=== PATIENT | female | born 1995 | race Caucasian/White ===

== ENCOUNTER 2022-03-11 16:44 | Outpatient (CLI) | payer SELFPAY | END 2022-03-11 16:45 | disposition home or self-care (01) | LOC: AMB 03-13 10:38 | PROVIDERS: Visit Provider Family Medicine | DX: R42 Dizziness and giddiness (principal) | CPT/HCPCS: A0425; A0427 ==

== ENCOUNTER 2022-03-11 17:19 | Emergency (ER) | payer SELFPAY ==
[2022-03-11] VITALS (7 sets, daily range): BP systolic 124–131; BP diastolic 66–96; PULSE 79–99; RESP 16–22; TEMP 35.8–36.7; O2SAT 95–100; BMI 48.9
--- NOTE | 2022-03-11 | CRLHL7_ITS ---
For Patients: As a result of the Century Cures Act, medical imaging exams and procedure reports are released immediately into your electronic medical record. You may view this report before your referring provider. If you have questions, please contact your health care provider. DATE: 03/11/2022. CLINICAL HISTORY: Dizziness. TECHNIQUE: Standard helical CT image acquisition through the head and neck was performed after intravenous contrast bolus enhancement. Multiplanar reconstructed images were performed and interpreted. COMPARISON: None available. FINDINGS: The origins of the great vessels from the aortic arch are patent. The origins of the right and left vertebral arteries are patent. The common carotid arteries are patent. No significant luminal stenoses of the proximal internal carotid arteries by NASCET criteria. The more distal cervical segments of the internal carotid arteries are patent. The right vertebral artery is patent. Although suboptimally assessed, there is apparent diminutive caliber and poor opacification of the proximal and mid V2 segment of the left vertebral artery in which an underlying dissection is not excluded. No intracranial proximal large vessel occlusion or flow-limiting luminal stenosis. No evidence of cerebral aneurysm or findings to suggest an arteriovenous shunting lesion. IMPRESSION: 1. Apparent diminutive caliber and poor opacification of the proximal and mid V2 cervical segment of the left vertebral artery. While this may be artifactual, an underlying dissection is not excluded. 2. No intracranial proximal large vessel occlusion or flow-limiting luminal stenosis. Please note that all CT scans at this facility use dose modulation, iterative reconstruction, and/or weight-based dosing when appropriate to reduce radiation dose to as low as reasonably achievable. Dictated by Raghav Bond MD @ 03/12/2022 3:34:47 PM (Electronically Signed)
--- NOTE | 2022-03-11 18:27 | CRLHL7_ITS ---
For Patients: As a result of the Century Cures Act, medical imaging exams and procedure reports are released immediately into your electronic medical record. You may view this report before your referring provider. If you have questions, please contact your health care provider. INDICATION: Dizziness. TECHNIQUE: Noncontrast CT images acquired through the brain. COMPARISON: None. FINDINGS: The ventricles and sulci are within normal limits for patient age. No mass effect or midline shift. The perez white differentiation is maintained. No acute intracranial hemorrhage or pathologic extra-axial fluid collection. Partially empty sella. Dysconjugate gaze. The calvarium is intact. The visualized paranasal sinuses and mastoid air cells are clear. IMPRESSION: 1. No acute intracranial hemorrhage or mass effect. 2. Partially empty sella may represent an anatomic variant, though raises the possibility of idiopathic intracranial hypertension in an appropriate clinical setting. Please note that all CT scans at this facility use dose modulation, iterative reconstruction, and/or weight-based dosing when appropriate to reduce radiation dose to as low as reasonably achievable. Dictated by Alli Salazar MD @ 03/11/2022 7:27:11 PM (Electronically Signed)
[2022-03-11] MEDS: diazePAM 5 MG/ML inj IV (18:57)
--- NOTE | 2022-03-11 18:58 | ED.DIZZY ---
HPI - Dizziness General Chief Complaint: Dizziness/Vertigo <Sandro Dior MD - Last Filed: 03/11/22 22:21> Stated Complaint: Dizzy <Sandro Dior MD - Last Filed: 03/11/22 22:21> Time Seen by Provider: 03/11/22 17:38 <Sandro Dior MD - Last Filed: 03/11/22 22:21> History of Present Illness HPI Narrative: 27-year-old young woman presenting to the emergency department via EMS accompanied by her significant other with complaint of dizziness and vomiting. She is not having a headache. No visual disturbance. Not really describing photophobia. About 2-1/2 hours ago was holding her child who is in foster care at this time, on added stress, and felt her left hand go little numb and then her arm felt as well. She passed it off as possibly just related to holding her son. This spontaneously resolved after unspecified amount of time, some minutes. Not actually weak. Subsequently maybe an hour later about an hour and a half prior to presentation here was then walking [place] and was suddenly hit with waves of dizziness and lots of vomiting. She does not recall moving in any particular way. She was noted to be walking in a tilted manner. Was feeling fine prior to these events today. Further recollection during the exam she has thinks that maybe when moving more to the left, meaning turning her head to the left, has more symptoms. She also acknowledges that her eyes seem to want to close when turning to the left as well. Significant other recollects that her eyes seemed to be jumpy. She says she is not dizzy at rest at this time. Just does not feel well and is lightheaded. Never had any sense of racing heart or irregular beats. No family history of aneurysms or unusual neurological disorders or strokes that she knows of. <Sandro Dior MD - Last Filed: 03/11/22 22:21> Related Data Allergies/Adverse Reactions: Allergies Allergy/AdvReac Type Severity Reaction Status Date / Time No Known Drug Allergies Allergy Verified 03/11/22 17:36 <Sandro Dior MD - Last Filed: 03/11/22 22:21> Review of Systems Status of ROS: Reports: 10 or more systems reviewed and unremarkable except as noted in History and below <Sandro Dior MD - Last Filed: 03/11/22 22:21> [facility] Social History: Social History Smoking Status: Never smoker Do you use any of these nicotine containing products: None Second hand tobacco smoke exposure: Yes How often do you have a drink containing alcohol: monthly or less How many standard drinks containing alcohol do you have on a typical day: 1 or 2 How often do you have six or more drinks on one occasion: Never AUDIT-C Alcohol total score: 1 Non-prescribed substance use: denies use service: No <Sandro Dior MD - Last Filed: 03/11/22 22:21> Exam Narrative: Exam Narrative: Pleasant. Eyes are closed lying semi recumbent on her right side. Cranial nerves 2-12 look to be intact. She is not demonstrating nystagmus. No sensory loss. No focal weakness. Head impulse test appears to be normal. Rotational movement of the head elicits a vague reproduction of symptoms to the left. Eyes do reflexively seem to close. Head is atraumatic. TMs bilaterally are clear. Oropharynx is sticky. lungs are clear. cardiovascular with regular rate and rhythm. No murmur rub or gallop. Abdomen is overweight soft and nontender. Extremities are without edema. I did return to examine later in clearly has significant discomfort to palpation in left rhomboid musculature more than the right. <Sandro Dior MD - Last Filed: 03/11/22 22:21> Const: Vital Signs, click to edit/add: Vital Signs - 24 hr 03/11/22 17:36 03/11/22 19:49 03/11/22 20:00 Temperature 96.5 F L Pulse Rate [Femora l] 86 90 Respiratory Rate 22 Blood Pressure [Ri ght Upper Arm] 128/96 H 124/73 Pulse Oximetry 99 95 99 Oxygen Delivery Me thod Room Air Room Air 03/11/22 18:37 03/11/22 20:30 03/11/22 22:05 Temperature 97 F L Pulse Rate [Femora l] 99 85 81 Respiratory Rate 16 Blood Pressure [Ri ght Upper Arm] 125/80 131/90 H 127/66 Pulse Oximetry 99 100 98 Oxygen Delivery Me thod Room Air Room Air Room Air 03/11/22 23:57 03/12/22 12:00 Temperature 98.0 F Pulse Rate [Femora l] 79 78 Respiratory Rate 16 16 Blood Pressure [Ri ght Upper Arm] 124/74 136/83 Pulse Oximetry 98 99 Oxygen Delivery Me thod Room Air Room Air <Sandro Dior MD - Last Filed: 03/11/22 22:21> Vital Signs, click to edit/add: Vital Signs - 24 hr 03/11/22 17:36 03/11/22 19:49 03/11/22 20:00 Temperature 96.5 F L Pulse Rate [Femora l] 86 90 Respiratory Rate 22 Blood Pressure [Ri ght Upper Arm] 128/96 H 124/73 Pulse Oximetry 99 95 99 Oxygen Delivery Me thod Room Air Room Air 03/11/22 18:37 03/11/22 20:30 03/11/22 22:05 Temperature 97 F L Pulse Rate [Femora l] 99 85 81 Respiratory Rate 16 Blood Pressure [Ri ght Upper Arm] 125/80 131/90 H 127/66 Pulse Oximetry 99 100 98 Oxygen Delivery Me thod Room Air Room Air Room Air 03/11/22 23:57 03/12/22 12:00 Temperature 98.0 F Pulse Rate [Femora l] 79 78 Respiratory Rate 16 16 Blood Pressure [Ri ght Upper Arm] 124/74 136/83 Pulse Oximetry 98 99 Oxygen Delivery Me thod Room Air Room Air <Jarocho Peters MD - Last Filed: 03/17/22 08:14> Vital Signs, click to edit/add: Vital Signs - 24 hr 03/11/22 17:36 03/11/22 19:49 03/11/22 20:00 Temperature 96.5 F L Pulse Rate [Femora l] 86 90 Respiratory Rate 22 Blood Pressure [Ri ght Upper Arm] 128/96 H 124/73 Pulse Oximetry 99 95 99 Oxygen Delivery Me thod Room Air Room Air 03/11/22 18:37 03/11/22 20:30 03/11/22 22:05 Temperature 97 F L Pulse Rate [Femora l] 99 85 81 Respiratory Rate 16 Blood Pressure [Ri ght Upper Arm] 125/80 131/90 H 127/66 Pulse Oximetry 99 100 98 Oxygen Delivery Me thod Room Air Room Air Room Air 03/11/22 23:57 03/12/22 12:00 Temperature 98.0 F Pulse Rate [Femora l] 79 78 Respiratory Rate 16 16 Blood Pressure [[facility] Upper Arm] 124/74 136/83 Pulse Oximetry 98 99 Oxygen Delivery Me thod Room Air Room Air <Tiara Medina MD - Last Filed: 03/12/22 14:31> Documenting provider has reviewed patient's vital signs: yes <Sandro Dior MD - Last Filed: 03/11/22 22:21> Course Course Hospital Course: Took over the patient care in waiting for her MRI results. MRI results returned with area of ischemic stroke to the cerebellar region along with a vertebral artery dissection. I did speak to Dr. Tello, stroke neurology at [facility], who viewed the patient's images. She recommended a daily aspirin and Neurology follow-up. She also recommended a repeat CTA head and neck in 3 months time. I did re-evaluate the patient, she was asymptomatic. All of her symptoms had resolved. Her gait was normal without any deviation. She was mentating normally. No slurred speech or other concerns. <Sandro Dior MD - Last Filed: 03/11/22 22:21> Reevaluation(s) Reevaluation #1: Patient is sleeping, vital signs remain stable, she is asymptomatic, when I woke her up, we are waiting MRI per and she will be signed out to the oncoming ER physician. <Jarocho Peters MD - Last Filed: 03/17/22 08:14> Time: 05:58 <Jarocho Peters MD - Last Filed: 03/17/22 08:14> Vital Signs Vital signs: Initial Vital Signs Temperature 96.5 F L 03/11/22 17:36 Temperature Source Temporal Artery Scan 03/11/22 17:36 Pulse Rate 86 03/11/22 17:36 Pulse Rhythm 03/11/22 17:36 Respiratory Rate 22 03/11/22 17:36 Blood Pressure 128/96 H 03/11/22 17:36 Blood Pressure Mean 106 03/11/22 17:36 Blood Pressure Position Supine 03/11/22 17:36 Pulse Oximetry 99 03/11/22 17:36 Oxygen Delivery Method 03/11/22 17:36 Vital Signs Temperature 96.5 F L 03/11/22 17:36 Pulse Rate 86 03/11/22 17:36 Respiratory Rate 22 03/11/22 17:36 Blood Pressure 128/96 H 03/11/22 17:36 Pulse Oximetry 99 03/11/22 17:36 Oxygen Delivery Method 03/11/22 17:36 Temperature 98.0 F 03/11/22 23:57 Pulse Rate 74 03/12/22 15:08 Respiratory Rate 16 03/12/22 15:08 Blood Pressure 134/86 03/12/22 15:08 Pulse Oximetry 99 03/12/22 15:08 Oxygen Delivery Method 03/12/22 15:08 <Sandro Dior MD - Last Filed: 03/11/22 22:21> Initial Vital Signs Temperature 96.5 F L 03/11/22 17:36 Temperature Source Temporal Artery Scan 03/11/22 17:36 Pulse Rate 86 03/11/22 17:36 Pulse Rhythm 03/11/22 17:36 Respiratory Rate 22 03/11/22 17:36 Blood Pressure 128/96 H 03/11/22 17:36 Blood Pressure Mean 106 03/11/22 17:36 Blood Pressure Position Supine 03/11/22 17:36 Pulse Oximetry 99 03/11/22 17:36 Oxygen Delivery Method 03/11/22 17:36 Vital Signs Temperature 96.5 F L 03/11/22 17:36 Pulse Rate 86 03/11/22 17:36 Respiratory Rate 22 03/11/22 17:36 Blood Pressure 128/96 H 03/11/22 17:36 Pulse Oximetry 99 03/11/22 17:36 Oxygen Delivery Method 03/11/22 17:36 Temperature 98.0 F 03/11/22 23:57 Pulse Rate 74 03/12/22 15:08 Respiratory Rate 16 03/12/22 15:08 Blood Pressure 134/86 03/12/22 15:08 Pulse Oximetry 99 03/12/22 15:08 Oxygen Delivery Method 03/12/22 15:08 <Jarocho Peters MD - Last Filed: 03/17/22 08:14> Initial Vital Signs Temperature 96.5 F L 03/11/22 17:36 Temperature Source Temporal Artery Scan 03/11/22 17:36 Pulse Rate 86 03/11/22 17:36 Pulse Rhythm 03/11/22 17:36 Respiratory Rate 22 03/11/22 17:36 Blood Pressure 128/96 H 03/11/22 17:36 Blood Pressure Mean 106 03/11/22 17:36 Blood Pressure Position Supine 03/11/22 17:36 Pulse Oximetry 99 03/11/22 17:36 Oxygen Delivery Method 03/11/22 17:36 Vital Signs Temperature 96.5 F L 03/11/22 17:36 Pulse Rate 86 03/11/22 17:36 Respiratory Rate 22 03/11/22 17:36 Blood Pressure 128/96 H 03/11/22 17:36 Pulse Oximetry 99 03/11/22 17:36 Oxygen Delivery Method 03/11/22 17:36 Temperature 98.0 F 03/11/22 23:57 Pulse Rate 74 03/12/22 15:08 Respiratory Rate 16 03/12/22 15:08 Blood Pressure 134/86 03/12/22 15:08 Pulse Oximetry 99 03/12/22 15:08 Oxygen Delivery Method 03/12/22 15:08 <Tiara Medina MD - Last Filed: 03/12/22 14:31> MDM - Dizziness MDM Narrative Medical decision making narrative: IV fluids were initiated. Was also ordered for Valium. I suspect this is a peripheral matter though there are some concerning aspects as delineated in HPI. I have ordered also for a CT scan the head along with CTA; this is only relevant imaging that is available to me at this time. Admittedly left arm symptoms could have been related to holding her child. I did review CT head and CTA head. CT head at least appears to be without bleed. Radiology over-read noted artifact limiting evaluation with proximal left vertebral artery imaging noted to be nondiagnostic but the mid to distal left vertebral artery to be widely patent. With treatment as above was clearly tired but overall markedly improved. No longer any dizziness. I have called to Neurology to discuss and pending their call back. Differential still includes TIA, atypical migraine, seizure activity, unlikely dissection. Duration of symptoms unusual for BPPV, vestibular neuritis or meniere's. Recommendations from Neurology are for follow-up MRI/MRA which would not be available until morning at this facility. We are without beds for admission. Risk factors are less such that might be able to discharge her and arrange for outpatient MRI though this can become difficult. After discussion and confirmation of MRI schedule availability, Ms. Alcantar would prefer to board here for imaging in the morning. <Sandro Dior MD - Last Filed: 03/11/22 22:21> Lab Data Attestation: I reviewed the patient's lab results. <Sandro Dior MD - Last Filed: 03/11/22 22:21> Labs: Lab Results 03/11/22 03/11/22 03/11/22 Range/Units 18:47 18:47 18:47 WBC 6.70 (4.50-11.00) K/uL RBC 4.50 (4.30-5.90) m/uL Hgb 13.1 L (13.5-17.5) gm/dL Hct 38.7 (37.0-53.0) % MCV 86 (80-100) fL MCH 29 (26-34) pg MCHC 34 (32-36) gm/dL RDW Coeff of Tiff 13.1 (11.5-15.5) % Plt Count 230 (140-440) K/uL Neut % (Auto) 60.8 (42.0-72.0) % Lymph % (Auto) 30.7 (20-44) % [place] % (Auto) 5.2 (0.0-11.0) % Eos % (Auto) 2.8 (0.0-7.0) % Baso % (Auto) 0.4 (0.0-3.0) % Neut # (Auto) 4.06 (1.7-7.0) K/uL Lymph # (Auto) 2.06 (0.90-2.90) K/uL [place] # (Auto) 0.30 (0.00-0.90) K/UL Eos # (Auto) 0.19 (0.00-0.50) K/uL Baso # (Auto) 0.03 (0.00-0.30) K/uL Sodium 138 (135-149) mmol/L Potassium 3.9 (3.6-5.1) mmol/L Chloride 108 (96-114) mmol/L Carbon Dioxide 21 (20-32) mmol/L BUN 22 (5-24) mg/dL Creatinine 0.6 (0.5-1.5) mg/dL Estimated Creat Clear 152.11 Estimated GFR 134 ml/min Glucose 108 (60-115) mg/dL Calcium 9.2 (8.4-10.6) mg/dL Magnesium 1.6 (1.5-2.6) mg/dL Troponin I < 0.01 L (0.01-0.04) ng/mL C-Reactive Protein < 0.5 L (0.5-1.0) mg/dL POC Troponin I 0.01 (0.01-0.04) ng/ml <Sandro Dior MD - Last Filed: 03/11/22 22:21> Lab Results 03/11/22 03/11/22 03/11/22 Range/Units 18:47 18:47 18:47 WBC 6.70 (4.50-11.00) K/uL RBC 4.50 (4.30-5.90) m/uL Hgb 13.1 L (13.5-17.5) gm/dL Hct 38.7 (37.0-53.0) % MCV 86 (80-100) fL MCH 29 (26-34) pg MCHC 34 (32-36) gm/dL RDW Coeff of Tiff 13.1 (11.5-15.5) % Plt Count 230 (140-440) K/uL Neut % (Auto) 60.8 (42.0-72.0) % Lymph % (Auto) 30.7 (20-44) % [place] % (Auto) 5.2 (0.0-11.0) % Eos % (Auto) 2.8 (0.0-7.0) % Baso % (Auto) 0.4 (0.0-3.0) % Neut # (Auto) 4.06 (1.7-7.0) K/uL Lymph # (Auto) 2.06 (0.90-2.90) K/uL [place] # (Auto) 0.30 (0.00-0.90) K/UL Eos # (Auto) 0.19 (0.00-0.50) K/uL Baso # (Auto) 0.03 (0.00-0.30) K/uL Sodium 138 (135-149) mmol/L Potassium 3.9 (3.6-5.1) mmol/L Chloride 108 (96-114) mmol/L Carbon Dioxide 21 (20-32) mmol/L BUN 22 (5-24) mg/dL Creatinine 0.6 (0.5-1.5) mg/dL Estimated Creat Clear 152.11 Estimated GFR 134 ml/min Glucose 108 (60-115) mg/dL Calcium 9.2 (8.4-10.6) mg/dL Magnesium 1.6 (1.5-2.6) mg/dL Troponin I < 0.01 L (0.01-0.04) ng/mL C-Reactive Protein < 0.5 L (0.5-1.0) mg/dL POC Troponin I 0.01 (0.01-0.04) ng/ml <Jarocho Peters MD - Last Filed: 03/17/22 08:14> Lab Results 03/11/22 03/11/22 03/11/22 Range/Units 18:47 18:47 18:47 WBC 6.70 (4.50-11.00) K/uL RBC 4.50 (4.30-5.90) m/uL Hgb 13.1 L (13.5-17.5) gm/dL Hct 38.7 (37.0-53.0) % MCV 86 (80-100) fL MCH 29 (26-34) pg MCHC 34 (32-36) gm/dL RDW Coeff of Tiff 13.1 (11.5-15.5) % Plt Count 230 (140-440) K/uL Neut % (Auto) 60.8 (42.0-72.0) % Lymph % (Auto) 30.7 (20-44) % [place] % (Auto) 5.2 (0.0-11.0) % Eos % (Auto) 2.8 (0.0-7.0) % Baso % (Auto) 0.4 (0.0-3.0) % Neut # (Auto) 4.06 (1.7-7.0) K/uL Lymph # (Auto) 2.06 (0.90-2.90) K/uL [place] # (Auto) 0.30 (0.00-0.90) K/UL Eos # (Auto) 0.19 (0.00-0.50) K/uL Baso # (Auto) 0.03 (0.00-0.30) K/uL Sodium 138 (135-149) mmol/L Potassium 3.9 (3.6-5.1) mmol/L Chloride 108 (96-114) mmol/L Carbon Dioxide 21 (20-32) mmol/L BUN 22 (5-24) mg/dL Creatinine 0.6 (0.5-1.5) mg/dL Estimated Creat Clear 152.11 Estimated GFR 134 ml/min Glucose 108 (60-115) mg/dL Calcium 9.2 (8.4-10.6) mg/dL Magnesium 1.6 (1.5-2.6) mg/dL Troponin I < 0.01 L (0.01-0.04) ng/mL C-Reactive Protein < 0.5 L (0.5-1.0) mg/dL POC Troponin I 0.01 (0.01-0.04) ng/ml <Tiara Medina MD - Last Filed: 03/12/22 14:31> Imaging Data MR - Other: Attestation: I have reviewed the pertinent imaging results. <Tiara Medina MD - Last Filed: 03/12/22 14:31> Radiologist's impression: MRI brain: There are small foci of diffusion restriction with matched FLAIR/T2 hyperintensity within the left cerebellar hemisphere representing recent ischemic infarcts. No associated hemorrhage or mass effect. The ventricles are normal in size and shape. There is no evidence of recent infarction or intracranial hemorrhage in the supratentorial brain the there are no enhancing intra-axial or extra-axial lesions. Partially empty sella is noted. The orbits suprasellar cistern and skull base are unremarkable. MRA [place]: The distal internal carotid arteries and basilar artery are widely patent. The anterior middle and posterior cerebral arteries their proximal branches are unremarkable no large vessel occlusion. MRA carotid arteries and vertebral arteries: Bilateral common carotid arteries internal and external carotid arteries appear widely patent there is no evidence of stenosis at or near either common carotid bifurcation. The right vertebral artery is congenitally dominant and widely patent there is narrowing of the mid cervical left vertebral artery. The there is motion artifact, but on source images suggest the possibility of a arterial dissection (images 45-59 of series 2) with [id number] stenosis. Vertebral artery remains patent distal to this segment. IMPRESSION: 1. Small areas of recent ischemic infarction within the left cerebellar hemisphere without hemorrhage or mass effect. 2. Normal supratentorial findings. 3. 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 Widely patent right vertebral artery and bilateral carotid arteries. 4. No large vessel occlusion involving proximal cerebral arteries. <Tiara Medina MD - Last Filed: 03/12/22 14:31> Discharge Plan Discharge Clinical Impression: Cerebellar stroke, Vertigo, Dissection of vertebral artery <Sandro Dior MD - Last Filed: 03/11/22 22:21> Patient Disposition: Home, Self-Care <Sandro Dior MD - Last Filed: 03/11/22 22:21> Condition: Improved <Sandro Dior MD - Last Filed: 03/11/22 22:21> Additional Instructions: You suffered a small stroke to the back of the brain. Your symptoms have resolved, and you are expected to fully recover. Start daily aspirin 325 mg daily. You will need to follow-up with neurology-their phone number is [phone]. You should call them to make a follow-up appointment in 2-3 months. You also need to have a follow-up head and neck CTA done in 3 months. We cannot make this appointment out of the ER for you, you should have your primary care provider order this test and get it scheduled. <Sandro Dior MD - Last Filed: 03/11/22 22:21> Follow Up/Referrals: Provider,Not a Local [Primary Care Provider] - <Sandro Dior MD - Last Filed: 03/11/22 22:21> Stand Alone Forms: [facility] [employer] Info Instructions <Sandro Dior MD - Last Filed: 03/11/22 22:21>
[2022-03-11 18:59] LABS: Basophils Absolute Auto 0.03 K/uL (0.00-0.30); Basophils Percent Auto 0.4 % (0.0-3.0); Eosinophils Absolute Auto 0.19 K/uL (0.00-0.50); Eosinophils Percent Auto 2.8 % (0.0-7.0); Hematocrit 38.7 % (37.0-53.0); Hemoglobin* 13.1 gm/dL (13.5-17.5); Immature Granulocytes Abs Auto 0.01 K/uL (0.00-0.30); Immature Granulocytes Pct Auto 0.1 %; Lymphocytes Absolute Auto 2.06 K/uL (0.90-2.90); Lymphocytes Percent Auto 30.7 % (20-44); Mean Corpuscular HGB Conc 34 gm/dL (32-36); Mean Corpuscular Hemoglobin 29 pg (26-34); Mean Corpuscular Volume 86 fL (80-100); Monocytes Percent Auto 5.2 % (0.0-11.0); Neutrophils Absolute Auto 4.06 K/uL (1.7-7.0); Neutrophils Percent Auto 60.8 % (42.0-72.0); Platelet Count* 230 K/uL (140-440); RDW Coefficient of Variation % 13.1 % (11.5-15.5)
[2022-03-11] MEDS: 0.9 % SODIUM CHLORIDE 1000 ml 1,000 ML IV (18:59)
[2022-03-11 19:01] LABS: Slide Review Reflex No
[2022-03-11 19:19] LABS: Chloride* 108 mmol/L (96-114); Sodium* 138 mmol/L (135-149)
[2022-03-11 19:20] LABS: Potassium* 3.9 mmol/L (3.6-5.1)
[2022-03-11 19:22] LABS: Creatinine* 0.6 mg/dL (0.5-1.5); Est. Creatinine Clearance* 152.11; Estimated Glomerular Filt Rate 134 ml/min
[2022-03-11 19:23] LABS: Blood Urea Nitrogen* 22 mg/dL (5-24); Calcium* 9.2 mg/dL (8.4-10.6); Carbon Dioxide* 21 mmol/L (20-32); Glucose* 108 mg/dL (60-115); Magnesium* 1.6 mg/dL (1.5-2.6)
[2022-03-11 19:36] LABS: C Reactive Protein* < 0.5 mg/dL (0.5-1.0); Troponin I* < 0.01 ng/mL (0.01-0.04)
[2022-03-11 20:27] LABS: Troponin, Point-of-Care* 0.01 ng/ml (0.01-0.04)
--- NOTE | 2022-03-11 22:14 | ED.NURSE ---
is feeling better. s/o will bring food in and is ok to eat. aware that she will
--- NOTE | 2022-03-11 23:25 | ED.NURSE ---
pt. with no complaints at this time. SO at bedside. pt. will stay in ER until MRI in the morning. vitals stable. denies n/v, dizziness.
[2022-03-12 12:00] VITALS: BP 136/83; PULSE 78; RESP 16; O2SAT 99
[2022-03-12 15:08] VITALS: BP 134/86; PULSE 74; RESP 16; O2SAT 99
--- NOTE | 2022-03-12 22:07 | CRLHL7_ITS ---
For Patients: As a result of the Century Cures Act, medical imaging exams and procedure reports are released immediately into your electronic medical record. You may view this report before your referring provider. If you have questions, please contact your health care provider. INDICATION: Severe and sudden vertigo. TECHNIQUE: Brain scanned sagittal T1, axial FLAIR, T2 and diffusion weighted and gadolinium-enhanced axial T1 weighted images. Magnetic resonance angiography of [facility] [place] arteries. [id number]-[id number]-tzettd and gadolinium-enhanced MRA images of the carotid arteries. COMPARISON: CT brain performed earlier today. FINDINGS: MRI brain: There are small foci of diffusion restriction with matched FLAIR/T2 hyperintensity within the left cerebellar hemisphere representing recent ischemic infarcts. No associated hemorrhage or mass effect. The ventricles are normal in size and shape. There is no evidence of recent infarction or intracranial hemorrhage in the supratentorial brain the there are no enhancing intra-axial or extra-axial lesions. Partially empty sella is noted. The orbits suprasellar cistern and skull base are unremarkable. MRA [place]: The distal internal carotid arteries and basilar artery are widely patent. The anterior middle and posterior cerebral arteries their proximal branches are unremarkable no large vessel occlusion. MRA carotid arteries and vertebral arteries: Bilateral common carotid arteries internal and external carotid arteries appear widely patent there is no evidence of stenosis at or near either common carotid bifurcation. The right vertebral artery is congenitally dominant and widely patent there is narrowing of the mid cervical left vertebral artery. The there is motion artifact, but on source images suggest the possibility of a arterial dissection (images 45-59 of series 2) with [id number] stenosis. Vertebral artery remains patent distal to this segment. IMPRESSION: 1. Small areas of recent ischemic infarction within the left cerebellar hemisphere without hemorrhage or mass effect. 2. Normal supratentorial findings. 3. 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 Widely patent right vertebral artery and bilateral carotid arteries. 4. No large vessel occlusion involving proximal cerebral arteries. Dictated by Abdullahi Back MD @ 03/12/2022 1:19:00 PM (Electronically Signed)
--- NOTE | 2022-03-12 22:07 | CRLHL7_ITS ---
For Patients: As a result of the Century Cures Act, medical imaging exams and procedure reports are released immediately into your electronic medical record. You may view this report before your referring provider. If you have questions, please contact your health care provider. INDICATION: Severe and sudden vertigo. TECHNIQUE: Brain scanned sagittal T1, axial FLAIR, T2 and diffusion weighted and gadolinium-enhanced axial T1 weighted images. Magnetic resonance angiography of [place] of [place] arteries. Aclh-nc-zxmnpo and gadolinium-enhanced MRA images of the carotid arteries. COMPARISON: CT brain performed earlier today. FINDINGS: MRI brain: There are small foci of diffusion restriction with matched FLAIR/T2 hyperintensity within the left cerebellar hemisphere representing recent ischemic infarcts. No associated hemorrhage or mass effect. The ventricles are normal in size and shape. There is no evidence of recent infarction or intracranial hemorrhage in the supratentorial brain the there are no enhancing intra-axial or extra-axial lesions. Partially empty sella is noted. The orbits suprasellar cistern and skull base are unremarkable. MRA [place] of [place]: The distal internal carotid arteries and basilar artery are widely patent. The anterior middle and posterior cerebral arteries their proximal branches are unremarkable no large vessel occlusion. MRA carotid arteries and vertebral arteries: Bilateral common carotid arteries internal and external carotid arteries appear widely patent there is no evidence of stenosis at or near either common carotid bifurcation. The right vertebral artery is congenitally dominant and widely patent there is narrowing of the mid cervical left vertebral artery. The there is motion artifact, but on source images suggest the possibility of a arterial dissection (images 45-59 of series 2) with [id number] stenosis. Vertebral artery remains patent distal to this segment. IMPRESSION: 1. Small areas of recent ischemic infarction within the left cerebellar hemisphere without hemorrhage or mass effect. 2. Normal supratentorial findings. 3. 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 Widely patent right vertebral artery and bilateral carotid arteries. 4. No large vessel occlusion involving proximal cerebral arteries. Dictated by Abdullahi Back MD @ 03/12/2022 1:19:37 PM (Electronically Signed)
--- NOTE | 2022-03-12 22:07 | CRLHL7_ITS ---
For Patients: As a result of the Century Cures Act, medical imaging exams and procedure reports are released immediately into your electronic medical record. You may view this report before your referring provider. If you have questions, please contact your health care provider. INDICATION: Severe and sudden vertigo. TECHNIQUE: Brain scanned sagittal T1, axial FLAIR, T2 and diffusion weighted and gadolinium-enhanced axial T1 weighted images.. Magnetic resonance angiography of [place] of [place] arteries. Pmba-zz-vknlba and gadolinium-enhanced MRA images of the carotid arteries. COMPARISON: CT brain performed earlier today. FINDINGS: MRI brain: There are small foci of diffusion restriction with matched FLAIR/T2 hyperintensity within the left cerebellar hemisphere representing recent ischemic infarcts. No associated hemorrhage or mass effect. The ventricles are normal in size and shape. There is no evidence of recent infarction or intracranial hemorrhage in the supratentorial brain the there are no enhancing intra-axial or extra-axial lesions. Partially empty sella is noted. The orbits suprasellar cistern and skull base are unremarkable. MRA [place] of [place]: The distal internal carotid arteries and basilar artery are widely patent. The anterior middle and posterior cerebral arteries their proximal branches are unremarkable no large vessel occlusion. MRA carotid arteries and vertebral arteries: Bilateral common carotid arteries internal and external carotid arteries appear widely patent there is no evidence of stenosis at or near either common carotid bifurcation. The right vertebral artery is congenitally dominant and widely patent there is narrowing of the mid cervical left vertebral artery. The there is motion artifact, but on source images suggest the possibility of a arterial dissection (images 45-59 of series 2) with vzhs-ty-bhcpnryb stenosis. Vertebral artery remains patent distal to this segment. IMPRESSION: 1. Small areas of recent ischemic infarction within the left cerebellar hemisphere without hemorrhage or mass effect. 2. Normal supratentorial findings. 3. 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 Widely patent right vertebral artery and bilateral carotid arteries. 4. No large vessel occlusion involving proximal cerebral arteries. Dictated by Abdullahi Back MD @ 03/12/2022 1:20:52 PM (Electronically Signed)
== END 2022-03-12 15:32 | disposition home or self-care (01) ==
PROVIDERS: Family Medicine; Emergency Provider Family Medicine
DX: I63.9 Cerebral infarction, unspecified (principal); I77.74 Dissection of vertebral artery
CPT/HCPCS: 36415; 70450; 70496; 70498; 70544; 70549; 70553; 80048; 83735; 84484; 85025; 86140; 94761; 96374; 99285; A9575; J3360; J7030; Q9967

== ENCOUNTER 2023-10-28 16:21 | Emergency (ER) | payer MEDICAID, SELFPAY ==
[2023-10-28 16:26] VITALS: BP 119/76; PULSE 75; RESP 18; TEMP 36.2; O2SAT 98; BMI 47.2
--- NOTE | 2023-10-28 17:24 | CRLHL7_ITS ---
For Patients: As a result of the Century Cures Act, medical imaging exams and procedure reports are released immediately into your electronic medical record. You may view this report before your referring provider. If you have questions, please contact your health care provider. Indication: left sided pelvic pain Technique: Real-time sonographic images of the pelvis were obtained transvaginally utilizing grayscale, color, and Doppler imaging. Comparison: None. Findings: Uterus: Appearance: Normal. Position: Retroflexed. Size: 8.2 x 4.9 x 6.5 cm. Endometrial stripe: 7 mm. 0.4 x 0.3 x 0.4 centimeter anechoic structure within the endometrium. Right ovary: Size: 4.1 x 2.3 x 2.5 cm. Appearance: Normal morphology. No masses. Preserved blood flow. Left ovary: Size: 5.1 x 2.5 x 4.1 cm. Appearance: Normal morphology. 3.3 x 2.3 x 2.9 centimeter simple cyst. Preserved blood flow. Free fluid: Trace free fluid in the left adnexa. Impression: 1. 3.3 x 2.3 x 2.9 centimeter simple left ovarian cyst. Simple cysts measuring 5 cm or less in reproductive age patients require no imaging follow-up. Adapted from Consensus Recommendations, Radiol:2010;256:943-955. 2. Nonspecific 0.4 x 0.3 x 0.4 centimeter sub endometrial cyst. 3. Trace nonspecific free fluid within the left adnexa. Dictated by Pj Leal MD @ 10/28/2023 6:56:37 PM (Electronically Signed)
--- NOTE | 2023-10-28 17:24 | CRLHL7_ITS ---
For Patients: As a result of the Century Cures Act, medical imaging exams and procedure reports are released immediately into your electronic medical record. You may view this report before your referring provider. If you have questions, please contact your health care provider. INDICATION: Left lower quadrant, left pelvic pain. TECHNIQUE: CT abdomen and pelvis acquired with 135 mL Isovue 370 contrast. COMPARISON: None. FINDINGS: Lower chest: No focal consolidation. Liver: No suspicious focal hepatic lesion. Gallbladder and bile ducts: Unremarkable. Pancreas: Unremarkable. Spleen: Unremarkable. Adrenal glands: Unremarkable. Kidneys: Kidneys enhance symmetrically, without hydronephrosis. Retroperitoneum: No lymphadenopathy. Bowel and mesentery: Bowel is not obstructed. No significant ascites, no pneumoperitoneum. Few scattered colonic diverticulosis, without evidence of acute diverticulitis. Normal appendix. Bladder: Unremarkable for degree of distention. Reproductive organs: Retroverted uterus. Dominant follicle in the left ovary measuring up to 2.8 cm. Pelvic lymph nodes: No lymphadenopathy. Vessels: Unremarkable. Abdominal wall: No acute abdominal wall abnormality. Bones: Multilevel degenerative changes of the spine. No suspicious/aggressive focal osseous lesion. Sequelae of bilateral sacroiliitis. IMPRESSION: Scattered colonic diverticulosis, without evidence of acute diverticulitis. No acute intra-abdominal abnormality identified. Please note that all CT scans at this facility use dose modulation, iterative reconstruction, and/or weight-based dosing when appropriate to reduce radiation dose to as low as reasonably achievable. Dictated by Jose F Sutton MD @ 10/28/2023 9:23:35 PM (Electronically Signed)
--- NOTE | 2023-10-28 17:28 | ED_ITS ---
HPI - General Adult General Date Seen: 10/28/23 Chief complaint: Abdominal Pain Stated complaint: ovarian cyst pain Time Seen by Provider: 10/28/23 17:08 Source: patient Mode of arrival: ambulatory Limitations: no limitations History of Present Illness HPI narrative: Patient is a 28-year-old female presenting to emergency department for left flank/left pelvis pain. She does have a go live past 2 or 3 days. Has been having some nausea but has not had any vomiting. She is concerned could be from an ovarian cyst this was seen on previous ultrasounds. The cyst is on the left ovary. States the pain is intermittent and is a dull sensation. Denies having symptoms like this previously. Has not had much p.o. intake due to the associated nausea. Has not taken anything for nausea but has start Tylenol for pain with minimal improvement. Denies fevers, chills, chest pain, shortness of breath, diarrhea, constipation, dysuria, weakness, numbness, headache, vision changes. Recently finished her menstrual period and that was otherwise normal. 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 She states she has fully recovered from this. Related Data Home Medications ?Medication ?Instructions ?Recorded ?Confirmed buspirone 5 mg tablet 5 mg PO BID 10/28/23 10/28/23 hydroxyzine HCl 25 mg tablet 25 mg PO Q6H PRN anxiety 10/28/23 10/28/23 meclizine 25 mg tablet 25 mg PO 3XD PRN vertigo 10/28/23 10/28/23 sertraline 100 mg tablet 150 mg PO DAILY 10/28/23 10/28/23 valacyclovir 500 mg tablet 500 mg PO BID 10/28/23 10/28/23 Allergies Allergy/AdvReac Type Severity Reaction Status Date / Time No Known Drug Allergies Allergy Verified 10/28/23 19:50 Review of Systems Status of ROS: Reports: 10 or more systems reviewed and unremarkable except as noted in History and below [facility] PFS Social History Smoking Status: Never smoker Do you use any of these nicotine containing products: None Second hand tobacco smoke exposure: Yes How often do you have a drink containing alcohol: monthly or less How many standard drinks containing alcohol do you have on a typical day: 1 or 2 How often do you have six or more drinks on one occasion: Never AUDIT-C Alcohol total score: 1 Non-prescribed substance use: denies use service: No Exam Narrative: Exam Narrative: Const: Well-nourished, Well-developed, in mild distress Eyes: PERRL, no conjunctival injection, and symmetrical lids HENT: Atraumatic external nose and ears. Moist mucous membranes. Neck: Symmetric, trachea midline, No thyromegaly. CVS: RRR, No murmurs or gallops. Peripheral pulses 2+ and equal in all extremities RESP: Unlabored respiratory effort. Clear to auscultation bilaterally. GI: Tenderness to left lower quadrant, Nondistended, No rebound or guarding. MSK:Extremities w/o deformity, Normal Active ROM Skin: Warm, Dry. No rashes or lesions. Neuro: Normal Muscle tone, No focal neurological deficits. Psych: Awake, Alert, & Oriented x3. Appropriate mood and affect. Const: Vital Signs, click to edit/add: Vital Signs - 24 hr 10/28/23 16:26 Temperature 97.1 F L Pulse Rate [Right Pulse Oximeter] 75 Respiratory Rate 18 Blood Pressure [Ri ght Upper Arm] 119/76 Pulse Oximetry 98 Oxygen Delivery Me thod Room Air Course Vital Signs Vital signs: Initial Vital Signs Temperature 97.1 F L 10/28/23 16:26 Temperature Source Temporal Artery Scan 10/28/23 16:26 Pulse Rate 75 10/28/23 16:26 Respiratory Rate 18 10/28/23 16:26 Blood Pressure 119/76 10/28/23 16:26 Blood Pressure Mean 90 10/28/23 16:26 Blood Pressure Position Sitting 10/28/23 16:26 Pulse Oximetry 98 10/28/23 16:26 Oxygen Delivery Method Room Air 10/28/23 16:26 Vital Signs Temperature 97.1 F L 10/28/23 16:26 Pulse Rate 75 10/28/23 16:26 Respiratory Rate 18 10/28/23 16:26 Blood Pressure 119/76 10/28/23 16:26 Pulse Oximetry 98 10/28/23 16:26 Oxygen Delivery Method Room Air 10/28/23 16:26 Temperature 97.1 F L 10/28/23 16:26 Pulse Rate 75 10/28/23 16:26 Respiratory Rate 18 10/28/23 16:26 Blood Pressure 119/76 10/28/23 16:26 Pulse Oximetry 98 10/28/23 16:26 Oxygen Delivery Method Room Air 10/28/23 16:26 Medications Administered Medications: Discontinued Medications Generic Name Dose Route Start Last Admin Trade Name Christine PRN Reason Stop Dose Admin Diphenhydramine HCl 25 mg 10/28/23 17:24 10/28/23 18:15 Diphenhydramine 50 Mg/Ml Inj IVP 10/28/23 17:25 25 mg ONCE ONE Administration Lactated Ringer's 1,000 mls @ 1,000 mls/hr 10/28/23 17:24 10/28/23 20:00 Lactated Ringers 1000 Ml IV 10/28/23 18:23 Infused .Q1H ONE Infusion Ketorolac Tromethamine 15 mg 10/28/23 17:24 10/28/23 18:10 Ketorolac 15 Mg/Ml Inj IVP 10/28/23 17:25 15 mg ONCE ONE Administration Ondansetron HCl 4 mg 10/28/23 17:53 10/28/23 18:12 Ondansetron 2 Mg/Ml Inj IVP 10/28/23 17:54 4 mg ONCE ONE Administration Medical Decision Making MDM Narrative Medical decision making narrative: Patient is a 28-year-old female presenting for left lower quadrant abdominal pain. She also states she is having pelvic pain call her tenderness seems to be in the left lower quadrant. She does have a history of ovarian cyst or will do an ultrasound just to make sure there is not a larger since that could be causing her pain. Was due CT scan with IV contrast of the abdomen and pelvis. CBC, CMP, urinalysis, lipase, test, magnesium were all ordered. Patient is given a L of fluids, Zofran for nausea and Toradol for pain. Symptoms resolved with the Toradol. Lab work returned showing no concerning abnormalities. Ultrasound was done showing a cyst in the left ovary but is not large enough to be concern for intermittent torsion. There is also trace free fluid in the left adnexa. This is unlikely to be causing your symptoms. CT scan reviewed by myself and the radiologist shows scattered colonic diverticul osis but no signs of diverticulitis. There is no acute intra-abdominal abnormalities identified. She is otherwise doing well at this time and feels comfortable discharge. l Lab Data Labs: Lab Results 10/28/23 Range/Units 18:10 WBC 5.30 (4.50-11.00) K/uL RBC 4.71 (4.00-5.20) m/uL Hgb 14.2 (12.0-16.0) gm/dL Hct 41.8 (33.0-51.0) % MCV 89 (80-100) fL MCH 30 (26-34) pg MCHC 34 (32-36) gm/dL RDW Coeff of Tiff 11.8 (11.5-15.5) % Plt Count 203 (140-440) K/uL Neut % (Auto) 36.7 L (42.0-72.0) % Lymph % (Auto) 52.6 H (20-44) % [place] % (Auto) 6.6 (0.0-11.0) % Eos % (Auto) 3.2 (0.0-7.0) % Baso % (Auto) 0.9 (0.0-3.0) % Neut # (Auto) 1.90 (1.7-7.0) K/uL Lymph # (Auto) 2.80 (0.90-2.90) K/uL [place] # (Auto) 0.30 (0.00-0.90) K/UL Eos # (Auto) 0.17 (0.00-0.50) K/uL Baso # (Auto) 0.05 (0.00-0.30) K/uL Abs Immat Gran (auto) 0.00 (0.00-0.30) K/uL Imm/Tot Granulo (auto) 0.0 % Sodium 138 (135-149) mmol/L Potassium 3.7 (3.6-5.1) mmol/L Chloride 107 (96-114) mmol/L Carbon Dioxide 23 (20-32) mmol/L Anion Gap 8 (7-15) mEq/L BUN 11 (5-24) mg/dL Creatinine 0.7 (0.5-1.5) mg/dL Estimated Creat Clear 101.48 Estimated GFR 119 ml/min Glucose 91 (60-115) mg/dL Calcium 9.1 (8.4-10.6) mg/dL Magnesium 1.9 (1.5-2.6) mg/dL Total Bilirubin 0.9 (0.1-1.5) mg/dL AST 30 (12-35) U/L ALT 23 (4-35) U/L Alkaline Phosphatase 43 (40-150) U/L Total Protein 7.1 (6.0-8.3) g/dL Albumin 4.4 (3.3-5.0) g/dL Lipase 105 (23-300) U/L HCG, Qual Negative (Negative) Imaging Data Pelvic ultrasound: Attestation: I have reviewed the pertinent imaging results. Radiologist's impression: 1. 3.3 x 2.3 x 2.9 centimeter simple left ovarian cyst. Simple cysts measuring 5 cm or less in reproductive age patients require no imaging follow-up. Adapted from Consensus Recommendations, Radiol:2010;256:943-955. 2. Nonspecific 0.4 x 0.3 x 0.4 centimeter sub endometrial cyst. 3. Trace nonspecific free fluid within the left adnexa. Dictated by Pj Leal MD @ 10/28/2023 6:56:[address] scan abdomen and pelvis: Attestation: I have reviewed the pertinent imaging results. Radiologist's impression: Scattered colonic diverticulosis, without evidence of acute diverticulitis. No acute intra-abdominal abnormality identified. Please note that all CT scans at this facility use dose modulation, iterative reconstruction, and/or weight-based dosing when appropriate to reduce radiation dose to as low as reasonably achievable. Dictated by Jose F Sutton MD @ 10/28/2023 9:23:35 PM Discharge Plan Discharge Clinical Impression: Abdominal pain Qualifiers: Abdominal location: left lower quadrant Qualified Code(s): R10.32 - Left lower quadrant pain Patient Disposition: Home, Self-Care Condition: Improved Instructions: Abdominal Pain (ED) Additional Instructions: I do not know what exactly is causing symptoms at this time but I do not see any emergent abnormalities on lab work or imaging. Follow-up with the primary care provider symptoms persist. Return to emergency department for new or worsening symptoms. Take Tylenol and ibuprofen for pain Prescriptions: No Action buspirone 5 mg tablet 5 mg PO BID sertraline 100 mg tablet 150 mg PO DAILY valacyclovir 500 mg tablet 500 mg PO BID meclizine 25 mg tablet 25 mg PO 3XD PRN (Reason: vertigo) hydroxyzine HCl 25 mg tablet 25 mg PO Q6H PRN (Reason: anxiety) Follow Up/Referrals: Provider,Not a Local [Primary Care Provider] - Stand Alone Forms: Subtext Info Instructions
[2023-10-28] MEDS: LACTATED RINGERS 1000 ML 1,000 ML IV (18:10)
[2023-10-28] MEDS: KETOROLAC 15 MG/ML inj IVP (18:10)
[2023-10-28] MEDS: ONDANSETRON 2 MG/ML inj 4 MG IVP (18:12)
[2023-10-28] MEDS: diphenhydrAMINE 50 MG/ML inj 25 MG IVP (18:15)
[2023-10-28 18:20] LABS: Basophils Absolute Auto 0.05 K/uL (0.00-0.30); Basophils Percent Auto 0.9 % (0.0-3.0); Eosinophils Absolute Auto 0.17 K/uL (0.00-0.50); Eosinophils Percent Auto 3.2 % (0.0-7.0); Hematocrit 41.8 % (33.0-51.0); Hemoglobin* 14.2 gm/dL (12.0-16.0); Lymphocytes Percent Auto 52.6 % (20-44); Mean Corpuscular HGB Conc 34 gm/dL (32-36); Mean Corpuscular Hemoglobin 30 pg (26-34); Mean Corpuscular Volume 89 fL (80-100); Monocytes Percent Auto 6.6 % (0.0-11.0); Neutrophils Percent Auto 36.7 % (42.0-72.0); Platelet Count* 203 K/uL (140-440); RDW Coefficient of Variation % 11.8 % (11.5-15.5); Red Blood Count 4.71 m/uL (4.00-5.20); Slide Review Reflex No
[2023-10-28 18:31] LABS: Albumin* 4.4 g/dL (3.3-5.0); Chloride* 107 mmol/L (96-114); Potassium* 3.7 mmol/L (3.6-5.1); Sodium* 138 mmol/L (135-149)
[2023-10-28 18:33] LABS: Creatinine* 0.7 mg/dL (0.5-1.5); Est. Creatinine Clearance* 101.48; Estimated Glomerular Filt Rate 119 ml/min
[2023-10-28 18:34] LABS: Alanine Aminotransferase* 23 U/L (4-35); Alkaline Phosphatase* 43 U/L (40-150); Anion Gap 8 mEq/L (7-15); Aspartate Amino Transferase* 30 U/L (12-35); Bilirubin Total* 0.9 mg/dL (0.1-1.5); Blood Urea Nitrogen* 11 mg/dL (5-24); Calcium* 9.1 mg/dL (8.4-10.6); Carbon Dioxide* 23 mmol/L (20-32); Glucose* 91 mg/dL (60-115); Lipase* 105 U/L (23-300); Total Protein* 7.1 g/dL (6.0-8.3)
[2023-10-28 18:35] LABS: Magnesium* 1.9 mg/dL (1.5-2.6)
[2023-10-28 19:25] LABS: HCG Qualitative Serum* Negative (Negative)
== END 2023-10-28 21:40 | disposition home or self-care (01) ==
PROVIDERS: Emergency Provider Student in an Organized Health Care Education/Training Program
DX: R10.32 Left lower quadrant pain (principal)
CPT/HCPCS: 36415; 74177; 76830; 80053; 81001; 83690; 83735; 84703; 85025; 93976; 96374; 96375; 99283; 99284; J1200; J1885; J2405; J7120; Q9967

== ENCOUNTER 2025-01-14 13:40 | Emergency (ER) | payer MEDICAID, SELFPAY ==
--- OUTSIDE RECORDS SUMMARY | 2024-12-05 10:30 | XMS_ITS | Encounter Summary ---
Author Organization [facility] Address [address] [place] [id number] Care Team Providers Care Campaign Associate Name Role Phone Elsewhere, Pcp Primary Care Provider Unavailabl e Reason for Referral * Behavioral Health (Routine) - Authorized Specialty Diagnoses / Procedures Referred By Cecelia glez Referred To Contact Psychiatry / Psychiatry and Psychology Diagnoses Depression Yuliana Moore M.D. [address] [place] [phone] Phone: tel: fax: [facility] Referral ID Status Reason Start Date Expiration Date V isits Requested Visits Authorized [id number] Authorized 12/05/2024 06/06/2026 1 1 * Outpatient (Routine) - Authorized Specialty Diagnoses / Procedures Referred By Cecelia glez Referred To Contact Neurology Diagnoses Migraine Headache Yuliana Moore M.D. [address] [place] [address] Phone: tel: fax: [facility] Referral ID Status Reason Start Date Expiration Date V isits Requested Visits Authorized [id number] Authorized 12/05/2024 06/06/2026 [address] Reilly Mejia has agreed to see patient for a follow-up. Previously saw her Reason for Visit * Outpatient (Routine) - Closed Specialty Diagnoses / Procedures Referred By Contac t Referred To Contact Obstetrics and Gynecology Jd Corrales M.D. [address] [place] [address] Phone: tel: fax: [facility] Referral ID Status Reason Start Date Expiration Date Visits Re quested Visits Authorized [id number] Closed 11/28/2024 05/30/2026 1 1 Encounter Details Date Type Department Care Team (Latest Contact Info) Description 12/05/2024 11:30 AM CDT Visit Department of Obstetrics and Gynecology in [place], [place] [address] [place] [phone] Yuliana Moore M.D. [address] [place] [phone] Bleeding Vaginal (Primary Dx); Migraine Headache; Depression Anxiety; Depression ; Care And Lactating Social History Tobacco Use Types Packs/Day Years Used Date Smoking Tobacco: Never Smokeless Tobacco: Never Alcohol Use Standard Drinks/Week Comments Not Currently 0 (1 standard drink = 0.6 oz pur e alcohol) Not in Humiliation, Afraid, Rape, and Kick questionnair e Answer Date Recorded Within the last year, have y ou been afraid of your partner or ex-partner? No 11/07/2024 Within the last year, have y ou been humiliated or emotionally abused in other ways by your partner or ex-partner? No Within the last year, have y ou been kicked, hit, slapped, or otherwise physically hurt by your partner or ex-partner? No 11/07/2024 Within the last year, have y ou been raped or forced to have any kind of sexual activity by your partner or ex-partner? No 11/07/2024 Hunger Vital Sign Answer Date Recorded Within the past 12 months, y ou worried that your food would run out before you got the money to buy more. Never true 11/08/19 25 Within the past 12 months, t he food you bought just didn't last and you didn't have money to get more. Never true 11/07/2024 PRAPARE - Transportation Answer Date Re corded In the past 12 months, has l ack of transportation kept you from medical appointments or from getting medications? No 10/14 In the past 12 months, has l ack of transportation kept you from meetings, work, or from getting things needed for daily living? No 11/07/2024 [facility] Utilities Answer Date Recorded In the past 12 months has [employer], gas, oil, or water [employer] threatened to shut off services in your home? No 11/07/2024 Depression Answer Date Recor ded PHQ-9 Total Score (max 27) 12 12/05 Housing Stability Answer Date Recorded What is your living situation today? I have a [facility] place to live 11/07/2024 Education Answer Date Recorded What is the highest level of school you have completed or the highest degree you have received? 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 - 12/05/2024 11:30 AM CDT CHIEF COMPLAINT / REASON FOR VISIT Interval Visit SUBJECTIVE April Alcantar is s/p induced vaginal delivery for gestational diabetes, Whites Class A2 on 11/08/24. 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 She had a , delivering a liveborn male with weight of 3.84 kg. Gestational age: 39w1d. occurred: 56:36 AM. Note cord avulsion occurred when attempting to reduce nuchal cord; umbilical cord was clamped on and infant handed to awaiting Neonatology team. Placenta delivered with maternal pushing efforts, intact. There was a minor hemostatic perineal abrasion without perineal lacerations or episiotomy. Patient and were left in stable condition. Immediate course was marked by passage of a golf sized clot, with trickling afterwards. Beside U/S was noted to be reassuring for no retained products. She was dismissed on 11/10/24. She reports 2 minor clots passed since, but otherwise feels fine. Inquired about reassuring testing that no further concerns regarding retained products remained. After further discussion, shared decision made to order a F/U CBC and TV U/S. Note, no active vaginal bleeding concerns. Lochia is expected. No bladder or bowel concerns. She also reports fatigue, associated with inadequate sleep (she stays at home with while her partner works and attends College. Admits this may be impacting mood, in addition to complex social situation. Increased headaches and migraines (/10); improved with nap, using Reglan, Ibuprofen and Tylenol. Has used Triptans once. Jose R has mixed feeding: bottle-feeding breast milk and bottle-feeding formula. Baby's name is: Jose R, 8 pounds 7 ounces, Apgars 8,9 No acute mood concerns but notes mood swings and irritability from sleep deprivation remains; Reports much of this is situational. Open to additional therapy support. Remains on Sertraline 150 mg daily. OBJECTIVE Vitals: 12/05/24 1126 BP: 116/75 Pulse: 65 Temp: 36.8 ??C SpO2: 99% General - No acute distress Pelvic Exam - Offered, patient prefers to defer - Opting for TV U/S to evaluate/ R/O retained products Diagnostics The patient's PHQ-9 and/or FLORENCIA-7 scores were reviewed and assessed. PHQ-9 Total Score (max 27): (Patient-Rptd) 12 FLORENCIA-7 Total Score (max 21): (Patient-Rptd) 6 No acute concerns regarding support from spouse. He accompanied her today, and reports that she care of their infant while he's at work and taking classes, but he assists her when he returns home. They continue to cope with an active CPS case; see note dated 11/10/24. Remains on her sertraline 150 mg daily. Reports she lost contact with her prior therapist and would be open to additional therapists /evaluation as long as there are some options for virtual visits. No symptoms of self-harm or harming others. Reports depression hx has been long standing. 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 - Reviewed appropriate sleep hygiene, in the context of caring for - Neurology F/U consult ordered Orders Placed This Encounter Procedures US OB Transvaginal CBC without Differential Neurology - Headache consult (clinic) Psychiatry and Psychology - Obstetrics consult (clinic) Reviewed the importance of seeking urgent/emergent care for any concerning symptoms, including worsening mood condition. All questions addressed. Patient voiced understanding of our discussion and plan of care. F/U 12/27/24 (note, requested that order for U/S and CBC be adjusted to previously scheduled F/U visit. Yuliana Mckenzie M.D. documented in this encounter Plan of Treatment Upcoming Encounters Date Type Department Care Team (Latest Contact Info) Description 01/26/2025 3:00 PM L[facility] Clinical Communication Virtual Review in [address] [phone] Scheduled Referrals Name Type Priority Associated Diagnoses Order Schedule Neurology - Headache consult (clinic) Outpatient Referral Routine Migraine Headache Expected: 12/05/2024, Expires: 03/06/2026 Psychiatry and Psychology - Obstetrics consult (clinic) Outpatient Referral Routine Depression Expected: 12/05/2024, Expires: 03/06/2026 documented as of this encounter Results * (ABNORMAL) CBC without Differential (12/27/2024 12:38 PM CDT) Hemoglobin 13.1 11.6 - 15.0 g/dL 12/27/2024 1:11 PM CDT DTL Hematocrit 38.8 35.5 - 44.9 % 12/27/2024 1:11 PM CDT DTL Erythrocytes 4.21 3.92 - 5.13 x10(12)/L 12/27/2024 1:11 PM CDT DTL MCV 92.2 78.2 - 97.9 fL 12/27/2024 1:11 PM CDT DTL RBC Distrib Width 11.5(L) 12.2 - 16.1 % 12/27/2024 1:11 PM CDT DTL Platelet Count 178 157 - 371 x10(9)/L 12/27/2024 1:11 PM CDT DTL Leukocytes 6.0 3.4 - 9.6 x10(9)/L 12/27/2024 1:11 PM CDT DTL Blood (Blood, Venous) 12/27/2024 12:38 PM CDT 12/27/2024 1:03 PM CDT Yuliana Mckenzie M.D. LAB BLOOD ADD-ON Maria Luisa l Result [facility] [place] [address] [place] [address], [place] [facility] [address] [place] [address] documented in this encounter Visit Diagnoses Diagnosis Bleeding Vaginal- Primary Migraine Headache Depression Anxiety Depression Care And Lactating documented in this encounter Additional Health Concerns Assessment Noted Time PHQ-9 Depression Total Score: 12 025 11:30 AM CDT documented as of this encounter Care Teams Campaign Associate Relationship Specialty Start Date End Date Elsewhere, Pcp PCP - General 04/03/19 [place] 05/16/24 documented as of this encounter
--- OUTSIDE RECORDS SUMMARY | 2024-12-27 09:00 | XMS_ITS | Encounter Summary ---
Author Organization [facility] Address [address] [place] [phone] Care Team Providers Care Printing Roller Handler Name Role Phone Elsewhere, Pcp Primary Care Provider Unavailabl e Reason for Visit * Physical Therapy (Routine) - Closed Specialty Diagnoses / Procedures Referred By Cecelia glez Referred To Contact Diagnoses Care And Lactating Procedures PT or OT eval and treat (first available) Malini Logan M.D. 200 [place] [phone] Phone: tel: fax: [facility] Referral ID Status Reason Start Date Expiration Date Visits Re quested Visits Authorized [id number] Closed 11/09/2024 02/09/2026 1 1 Encounter Details Date Type Department Care Team (Latest Contact Info) Description 12/27/2024 10:00 AM CDT Comprehensive Visit Department of Obstetrics and Gynecology in [place], [place] [address] [place] [phone] Malini Logan M.D. [address] [place] [phone] Jovita Ochoa M.S., O.T. [address] [place] [phone] Weakness Muscle (Primary Dx); Care And Lactating Social History Tobacco Use [...] things needed for daily living? No 11/07/2024 [facility] Utilities Answer Date Recorded In the past 12 months has [facility] [place], gas, oil, or water Status Overload threatened to shut off services in your home? No 11/07/2024 Depression Answer Date Recor ded PHQ-9 Total Score (max 27) 7 12/27 Housing Stability Answer Date Recorded What is your living situation today? I have a [facility] place to live 11/07/2024 Education Answer Date Recorded What is the highest level of school you have completed or the highest degree you have received? Associate degree: occupational, technical, or vocational program 08/06/2021 Comments No Sex and Gender Information Value Date Recorded Sex Assigned at Female 05/24/2018 11:02 AM CDT Legal Sex Female 7:46 PM PESTICIDE CONTROL INSPECTOR Gender Identity Female 05/24/2018 11:02 AM CDT Sexual Orientation Straight 05/24/2018 11 :02 AM CDT Occupation Industry Job Start Date Job End Date [employer] Employee Not on file Not on file Not on fi shantell Gregorio Not on file Not on file Not on file documented as of this encounter Consult Notes * Claire Jeronimo E - 12/27/2024 10:00 AM CDT Occupational Therapy Pelvic Floor Outpatient Evaluation and Treatment SUBJECTIVE Patient's Name: April Alcantar Referring Provider: Malini Logan M.D. Medical Diagnosis: 1. Care And Lactating Payor: UCARE / Plan: UCARE [place] CARE / Product Type: Medicaid O / Met[employer] Insights Visit Count: 2 PERTINENT MEDICAL / SURGICAL HISTORY: Problem List[1] Surgical History[2] OB History Para Term AB Living 5 4 3 1 1 4 SAB IAB Ectopic Molar Multiple Live Births 1 0 4 # Outcome Date GA Lbr Fuad/2nd Weight Sex Type Anes PTL Lv 5 Term 11/08/24 39w1d / 00:03 3.84 kg M Vag-Spont EPI, Spinal KAMILA Complications: Abruptio Placenta 4 Term 12/02/21 38w2d / 00:01 4.35 kg M Vag-Spont KAMILA Complications: Precipitous Labor <3 Hours, Shoulder Dystocia, Uterine Atony 3 Term 04/12/18 38w6d / 01:26 4.479 kg M Vag-Spont KAMILA 2 04/26/15 36w2d 3.487 kg F Vag-Spont None Y KAMILA Comments: PPROM, GDM 1 SAB 05/03/14 18w2d F SAB FD Comments: cervical incompetance, non-viable fetus April Alcantar is a 29 y.o. who presents to pelvic therapy for the above concern, most important for me today is urinary leakage. I have reviewed the recent medical record including notes by Malini Logan M.D.. Please refer to those notes for complete details and a summary of the patient's pelvic concerns. I appreciate the referral. Family or caregiver present: Pelvic floor muscle functioning/screen: ORTHOPEDIC PAIN: Low back pain, reports 3/10 most days with pain medication Patient takes 600 ibuprofen every morning and alternates with tylenol Pain improves with sitting Pain worsens with standing and bending over, espcially when changing baby. PROLAPSE: No symptoms BLADDER: Endorses urgency, especially with running water Endorses urge incontinence, can be a few drops or enough to wet underwear Endorses stress incontinence with sneezing and coughing Denies frequency Endorses incomplete emptying. More urine will come out if she sits at the toilet for a few minutes post void or if she bends over at the toilet. BOWEL: Gas incontinence, especially with activities like walking Patient reports stool consistency of type 2-4 on the [place] Stool Chart. Bowel movements every other day, sometimes 1x/day. Denies constipation Endorses daily abdominal pain, but does not seem to be related to bowel movements. REPRODUCTIVE/SEXUAL: Endorses pain with tampons Denies pain with sex Patient has returned to sex and has no concerns. Occupational Profile: ADL: see above IADL: no concerns Health Management/Stress Management: Patient and her report feeling stretched thin between working and going to school while patient cares for the all day. They appear to have good communication and is committed to giving Ally a break from infant care when possible. Sleep/Rest: Reports little to no sleep at the moment due to care. Education/Work: Not working, but hopes to return to employment at [employer] once cleared. Patient is concerned about lifting requirements at work. Social participation: is supportive, mother lives close by and helps with baby. Current exercise: Leg lifts in bed, walks. Exercise goals: Wants to go gym, but trying to get membership covered through insurance. OBJECTIVE I have briefly reviewed the Review of Systems and patient's electronic medical record. I am only responding to those symptoms which are directly relevant to the specific indication for my consultation. I recommend that the patient follow up with their primary or referring provider to pursue any other symptoms which may be of concern. PHYSICAL EXAM Pleasant female in no acute distress. Alert and orientated to person, place and date. Musculoskeletal examination Gait & Transfers: not formally assessed Posture: forward head, rounded shoulders, increased thoracic kyphosis Squat: - Quadriceps dominant (increased anterior translation of knee) with increased dynamic valgusat knee Balance: able to maintain single leg stance for >10 seconds without difficulty bilaterally, positive Trendelenburg Lumbar Active Range of Motion: Lumbar range of motion normal. Hip Passive Range of Motion: flexion limited bilateral Strength: Gluteus medius weakness as evident by positive Trendelenburg sign during single leg stance Abdominal muscle coordination/strength: Impaired core strength demonstrated by difficulty maintaining a single leg bridge Active Straight Leg Raise positive indicating core strength deficits and load transfer dysfunction Diaphragmatic breathing assessment: Normal rate and pattern, good 360 expansion Pelvic Examination Deferred due to patient preference TREATMENT Treatment today consisted of: Educated the patient on the anatomy and functions of pelvic floor musculature, including the relationship between lumbar spine, hip, and pelvic floor. Discussed examination findings and plan of care. Therapeutic Activity: -Demonstrated and instructed patient in the use of ergonomic principles to address pain, including:lifting with legs, hip hinge, engaged standing posture, supported sitting posture, bed mobility, car mobility. -Demonstrated and instructed patient in the use of exhale, transverse abdominus engagement, and pelvic floor engagement on exertion, such as with bending and lifting, in order to improved intraabdominal pressure management with functional mobility. Instructed patient in proper coordination of abdominal musculature. Guided patient in self palpation to ensure proper coordination. Discussed indications poor coordination, including breath-holding and abdominal bulge. Guided patient in the following for coordination practice and instructed patientin completing this independently. - Guided patient in discussion about strategies to reduce urinary urgency and incontinence. Discussed the knack, coughing and sneezing up and out to reduce intra-abdominal pressure placed on the pelvic floor, urge suppression techniques, and bladder irritants. Therapeutic Exercise: Patient was instructed in the following therapeutic exercise with the goal of improving core and hip strength. Appropriate verbal and tactile cues were used to ensure correct and safe performance. -See HEP below Demonstrated correct positioning and targeting of correct muscle groups with each movement. Home Exercise Program/Education: -Access Code: [email or web address] URL: [email or web address] Date: 12/27/2024 Prepared by: Jovita CrockettBlackDuck) Program Notes Before you cough or sneeze, take a deep breath. Try not to crunch in when you cough and sneeze. Instead cough or sneeze out. Try doing a small kegel and abdominal contraction before you cough or sneezeBladder Irritants may be influencing your bladder symptoms Exercises - Sidelying Hip Abduction - 1 x daily - 3 x weekly - 3 sets - 10 reps - Supine Bridge with Mini Turkmen Ball Between Knees - 1 x daily - 3 x weekly - 3 sets - 10 reps - Marching Bridge - 1 x daily - 3 x weekly - 3 sets - 10 reps - Seated Transversus Abdominis Bracing - 1 x daily - 7 x weekly - 3 sets - 10 reps - Quadruped Transversus Abdominis Bracing - 1 x daily - 3 x weekly - 3 sets - 10 reps - Diaphragmatic Breathing to Reduce Intra-abdominal Pressure: Lifting a Basket - 1 x daily - 7 x weekly - 3 sets - 10 reps Patient Education - Bladder Retraining Response to treatment today: good Provided time and space for questions, all of which I answered to the best of my ability. Patient was given my business card to contact me if they should have further questions or concerns. Assessment Clinical Impression: April Alcantar is a 29 y.o. who is status post on 11/08/2024 referred to occupational therapy with complaints of mixed urinary incontinence, urinary urgency, low back pain, and gas incontinence. Examination findings significant for: 1.Poor abdominal engagement 2.Weak gluteus medius, bilateral 3. Poor intra-abdominal pressure management We initiated a program focusing on functional modifications to reduce urinary leakage as well as a strengthening program to address the above deficits. The patient is an excellent candidate for participation in pelvic floor OT. However, at this time, patient prefers to focus on her home exercise program and will reach out on the portal if her symptoms do not improve or get worse. Rehab Potential: Ms. Alcantar has potential to achieve established therapy goals within the time frame outlined below, provided she actively participates in her therapy treatment plan and home program. Clinical Decision Making Complexity: Functional Goals and Timeframes: Plan Ms. Alcantar was educated regarding evaluative findings, diagnosis, prognosis, potential risks and benefits of rehabilitation interventions. A collaborative effort was used to establish goals and plan of care. She was informed of her right to make decisions regarding her care, including refusal of examination or treatment or selection of services from another provider if desired. The treatment plan may be progressed or modified based upon her response to treatment. Treatment Plan: Start of Plan of Care: 12/27/2024 Number of Visits: visits OT Duration: Treatment interventions may include: Time Spent with Patient Evaluations Eval - Mod Complexity: 18 min Therapeutic Interventions Therapeutic Activity (min): 24 min Therapeutic Exercise (min): 19 min Time Tracking Total Timed Units (min): 43 min Total Treatment Time (min): 61 min Claire Jeronimo [1] Patient Active Problem List Diagnosis Prior Premature Rupture Membrane Personal History (HCC) Type O Blood Rhesus Negative With Personal History Gestational Diabetes Mellitus (HCC) Body Mass Index 45.0 To 49.9 Adult (HCC) Depression Anxiety Herpes Genitalis High Risk (HCC) Vertebro Basilar Artery Syndrome Urinary Tract Infection (HCC) Obstetric Disorder Personal History Deficiency Iron Need Vaccine Immunization Varicella Headache (HCC) Positive Group B Streptococcus (HCC) Deficiency Iron Thrombocytopenia (HCC) Diabetes Mellitus Gestational Insulin Controlled (HCC) Trichomonas Urogenital Pelvic And Perineal Pain Delivery Vaginal Normal Spontaneous (HCC) Care And Lactating Psychosocial Circumstance [2] Past Surgical History: Procedure Laterality Date NO PAST SURGERIES Cosigned by Jovita Ochoa M.S., O.T. at 12/27/2024 3:52 PM CDT Associated attestation - Jovita Ochoa M.S., O.T. - 12/27/2024 3:52 PM CDT This therapist has reviewed all documentation and supervised today's session. This therapist agreeswith the plan of care developed in collaboration with the patient. documented in this encounter Plan of Treatment Upcoming Encounters Date Type Department Care Team (Latest Contact Info) Description 01/26/2025 3:00 PM PESTICIDE CONTROL INSPECTOR Clinical Communication Virtual Review in [place] [phone] [place] [phone] documented as of this encounter Visit Diagnoses Diagnosis Weakness Muscle- Primary Care And Lactating documented in this encounter Additional Health Concerns Assessment Noted Time PHQ-9 Depression Total Score: 7 12/28/19 25 11:10 AM CDT documented as of this encounter Care Teams Printing Roller Handler Relationship Specialty Start Date End Date Elsewhere, Pcp PCP - General 04/03/19 Ainsley 05/16/24 documented as of this encounter
--- OUTSIDE RECORDS SUMMARY | 2024-12-27 10:00 | XMS_ITS | Encounter Summary ---
Author Organization [facility] Address [address] [place] [phone] Care Team Providers Care Clamp Truck Driver Name Role Phone Elsewhere, Pcp Primary Care Provider Unavailabl e Reason for Visit * Outpatient (Routine) - Closed Specialty Diagnoses / Procedures Referred By Cecelia glez Referred To Contact Obstetrics and Gynecology Diagnoses Care And Lactating Malini Logan M.D. [address] [place] [phone] Phone: tel: fax: [facility] Referral ID Status Reason Start Date Expiration Date Visits Re quested Visits Authorized [id number] Closed 11/09/2024 05/11/2026 1 1 Encounter Details Date Type Department Care Team ([facility] st Contact Info) Description 12/27/2024 11:00 AM CDT Visit Department of Obstetrics and Gynecology in [place], [place] [address] [place] [phone] Estrella Vera CNM [address] [place] [phone] Migraine Headache (Primary Dx); Exam (HCC) Social History Tobacco Use Types Packs/Day Years [...] money to buy more. Never true 11/08/19 Within the past 12 months, t he [...] things needed for daily living? No 11/07/2024 [facility] Utilities Answer Date Recorded In the past 12 months has e electric, gas, oil, or water company threatened to shut off services in your home? No 11/07/2024 Depression Answer Date Recor ded PHQ-9 Total Score (max 27) 7 12/27 Housing Stability Answer Date Recorded What is your living situation today? I have a [facility] place to live 11/07/2024 Education Answer Date Recorded What is the highest level of school you have completed or the highest degree you have received? Associate degree: occupational, technical, or vocational program 08/06/2021 Comments No Sex and Gender Information Value Date Recorded Sex Assigned at Female 05/24/2018 11:02 AM CDT Legal Sex Female 7:46 PM AEROLOGIST Gender Identity Female 05/24/2018 11:02 AM CDT Sexual Orientation Straight 05/24/2018 11 :02 AM CDT Occupation Industry Job Start Date Job End Date [employer] Employee Not on file Not on file Not on fi shantell Gregorio Not on file Not on file Not on file documented as of this encounter Last Filed Vital Signs Vital Sign Reading Time Taken Comments Blood Pressure 109/70 12/27/2024 11:10 AM CDT Pulse 65 12/27/2024 11:10 AM CDT Temperature 36.8 C (98.2 F) 12/27/2024 11:10 AM CDT Respiratory Rate - - Oxygen Saturation 98% 12/27/2024 11:10 AM CDT Inhaled Oxygen Concentration - - Weight 135 kg (298 lb 1 oz) 12/27/2024 11:10 AM CDT Height - - Body Mass Index 49.18 11/07/2024 3:25 PM CDT documented in this encounter Progress Notes * Estrella Vera CNM - 12/27/2024 11:00 AM CDT Images from the original note were not included. The patient verbally consented to an audio recording of their visit to assist with the completion of documentation. SUBJECTIVE CHIEF COMPLAINT / REASON FOR VISIT April Alcantar, , is 49 days status post Vaginal, Spontaneous. 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 Varicella non-immune course has been complicated by active CPS case and delayed PP hemorrhage at 3 weeks PP treated in OB Triage. . April Bernal is a 29 year old female who presents with concerns and follow-up after delivery. She is experiencing blood clots and is scheduled for a transvaginal ultrasound today. She was unable to complete her labs today and plans to do them during her next visit, specifically forglucose testing. She recalls being informed by labor and delivery that her placenta had ruptured during the ofher child, Jose R. However, a subsequent consultation indicated that the placenta was intact, leading to confusion. She was told that the umbilical cord had detached, a condition known as cord avulsion. She expresses concern over receiving conflicting information and mentions receiving the wrong discharge papers post-delivery. Her recovery includes cessation of bleeding without resumption of menstruation. No pain or urinary issues are reported, but she feels irritable, attributing it to being 'cooped up in the house' and lack of sleep. She is awaiting a therapy appointment, scheduled for about a month from now, and is on a waitlist for any earlier openings. She experiences persistent headaches, dizzy spells, and numbness in her legs and feet, which occur when sitting or standing. She is waiting for a neurology appointment and is open to seeing any available provider to address these symptoms. She is currently formula feeding her baby due to a decrease in milk supply after being on antibiotics. Her son Jose R's bilirubin levels have normalized after being dangerously high, and his blood type is O positive. Her blood type is O negative, and she confirms receiving a Rhogram shot . Regarding family planning, her partner plans to undergo a vasectomy, and she is not currently usingany control methods. She prefers not using hormonal contraceptives due to forgetfulness and past negative experiences with the shot. HISTORY OF PRESENT CONDITION OB History Para Term AB Living 5 [...] SAB FD Comments: cervical incompetance, non-viable fetus OBJECTIVE VITAL SIGNS Vitals: 12/27/24 1110 BP: 109/70 Pulse: 65 Temp: 36.8 ??C Weight: 135 kg SpO2: 98% TempSrc: Oral PHYSICAL EXAM Physical Exam NECK: Thyroid normal. CARDIOVASCULAR: Heart sounds normal. ABDOMEN: NT, non-distended, Diastasis Recti < 1 FB MENTAL STATUS The patient's PHQ-9 and/or FLORENCIA-7 scores were reviewed and assessed. 11/21/2024 10:57 AM 12/05/2024 11:30 AM 12/27/2024 11:10 AM PHQ9 Score PHQ-9 Total Score (max 27) 7 12 7 Patient-reported 11/21/2024 10:59 AM 12/05/2024 11:31 AM 12/27/2024 11:10 AM GAD7 Score FLORENCIA-7 Total Score (max 21) 4 6 5 Patient-reported DIAGNOSTICS I have reviewed the most recent labs and pathology result(s) Blood Type: O Neg Antibody Screen: Antibody Screen Date Value Ref Range Status 11/28/2024 CANCELED Comment: See antibody identification test. Result canceled by the ancillary. 01/25/2018 NEG Final Thin Prep: deferred ASSESSMENT / PLAN Problem List Items Addressed This Visit None Care And Lactating Delivery Vaginal Normal Spontaneous Vertebro Basilar Artery Syndrome Diabetes Mellitus Gestational Insulin Controlled Deficiency Iron Thrombocytopenia Type O Blood Rhesus Negative Need Vaccine Immunization Varicella Depression Anxiety Psychosocial Circumstance Assessment & Plan Cord Avulsion Experienced a cord avulsion during delivery with premature detachment of the umbilical cord while managing a nuchal cord. Conflicting information regarding the placenta's integrity was provided by different healthcare providers. - Contact the patient experience office for clarification on delivery details. Occult Placenta Accreta Pathology report revealed a small section of the placenta abnormally attached to the myometrial layer, indicating occult placenta accreta. This condition poses a 10-20% recurrence risk in future pregnancies and requires close monitoring for more serious placenta accreta. - Document occult placenta accreta in the problem list for future reference. Mood Changes Experiencing irritability likely due to hormonal changes, sleep deprivation, and confinement at home. Awaiting a therapy appointment scheduled in approximately one month. - Continue sertraline 150 mg daily - Follow up with scheduled therapy appointment. - Check for availability of an earlier therapy appointment. Chronic Headaches and Dizziness Experiencing daily headaches, dizziness, and new symptoms of numbness in the legs and feet. Awaiting a neurology appointment and open to seeing any available provider to expedite care. - Inquire with neurology about the possibility of an earlier appointment. - Consider other providers for sooner availability. General Health Maintenance Inquired about gym membership coverage through insurance. Advised to verify coverage and requirements with the insurance company. - Contact insurance company for gym membership coverage details. - Provide a prescription if required by insurance for gym membership. Follow-up Scheduled for a transvaginal ultrasound today at 3 PM. Needs to complete glucose testing, preferring a fasting glucose test to avoid the glucose solution. - Attend scheduled transvaginal ultrasound. - Order fasting glucose test for next visit. documented in this encounter Plan of Treatment Upcoming Encounters Date Type Department Care Team (Latest Contact Info) Description 01/26/2025 3:00 PM AEROLOGIST Clinical Communication Virtual Review in [address] [phone] documented as of this encounter Visit Diagnoses Diagnosis Migraine Headache- Primary Exam (HCC) documented in this encounter Additional Health Concerns Assessment Noted Time PHQ-9 Depression Total Score: 7 12/28/19 25 11:10 AM CDT documented as of this encounter Care Teams Clamp Truck Driver Relationship Specialty Start Date End Date Elsewhere, Pcp PCP - General 04/03/19 Ainsley 05/16/24 documented as of this encounter
--- OUTSIDE RECORDS SUMMARY | 2024-12-27 12:28 | XMS_ITS | Encounter Summary ---
Author Organization [facility] Address [address] [place] [id number] Care Team Providers Care Electrician Supervisor Airplane Name Role Phone Elsewhere, Pcp Primary Care Provider Unavailabl e Reason for Visit * - Canceled Specialty Diagnoses / Procedures Referred By Cecelia glez Referred To Contact Diagnoses Bleeding Vaginal Procedures US Pelvis Transvaginal and Transabdominal Yuliana Moore M.D. [address] [place] [address] Phone: tel: fax: [facility] Referral ID Status Reason Start Date Expiration Date V isits Requested Visits Authorized [id number] Canceled 12/27/2024 03/29/2026 1 1 Encounter Details Date Type Department Care Team (Latest Contact Info) Description 12/27/2024 1:28 PM CDT - 12/27/2024 11:59 PM CDT Hospital Encounter Department of Obstetrics and Gynecology in [place], [place] [address] [place] [address] Yuliana Moore M.D. [address] [place] [phone] Bleeding Vaginal Discharge Disposition: Home or Self Care Social History Tobacco Use Types Packs/Day Years [...] things needed for daily living? No 11/07/2024 [facility] Utilities Answer Date Recorded In the past 12 months has th e electric, gas, oil, or water company threatened to shut off services in your home? No 11/07/2024 Depression Answer Date Recor ded PHQ-9 Total Score (max 27) 7 12/27 Housing Stability Answer Date Recorded What is your living situation today? I have a [facility] place to live 11/07/2024 Education Answer Date Recorded What is the highest level of school you have completed or the highest degree you have received? 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 Alternate every 3 hours with ibuprofen. Do not exceed 4,000 mg or 4 g in 24 hours. 11/10/2024 albuterol 90 mcg/actuation inhaler Inhale 1-2 puffs every 4 (four) hours as needed. 01/25/[address] tablet Take 2 tablets (162 mg total) by mouth daily. 11/21/2024 diphenhydrAMINE (BenadryL) 25 mg capsule Take 25 mg by mouth every 4 (four) hours as needed. 01/19/2022 EPINEPHrine 0.3 mg/0.3 mL injection syringeIndicati ons:Allergy Bee Sting Personal History Inject 0.3 mL (0.3 mg total) intramuscularly as needed for anaphylaxis. Inject into the thigh. 1 each 2 07/28/2024 hydrOXYzine (Atarax) 25 mg tablet Take 25 mg by mouth every 6 (six) hours as needed for anxiety. ibuprofen 600 mg tablet Take 1 tablet (600 mg total) by mouth every 6 (six) hours as needed for mild pain or score 1-3 of 10, moderate pain or score 4-6 of 10 or severe pain or score 7-10 of 10. Alternate every 3 hours with acetaminophen. 100 tablet 1 11/10/2024 meclizine (Antivert) 12.5 mg tablet Take 12.5 mg by mouth 3 (three) times a day as needed for dizziness. metoclopramide (Reglan) 10 mg tablet Take 10 mg by mouth as needed. prenat.vits,emili ,nkz-qxtc-bdglt tablet Take 1 tablet by mouth daily. 10/31/2014 sertraline (Zoloft) 100 mg tablet Take 1.5 tablets (150 mg total) by mouth daily. 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 Clinical Communication Virtual Review in [address] [phone] documented as of this encounter Procedures Procedure Name Priority Date/Time Associated Diagnosis Comments US OB TRANSVAGINAL RAD - Routine (most inpatients and all outpatients) 12/27/2024 2:52 PM CDT Bleeding Vaginal documented in this encounter Results * US OB Transvaginal (12/27/2024 2:52 PM CDT) Anatomical Region Laterality Modality Pelvis, Ultrasound OB RST LOS, Ultrasound ARZ LO S N/A Ultrasound 12/27/2024 2:16 PM CDT Narrative 12/27/2024 3:43 PM CDT Exam Type ========= OB Limited for RPOC, OB Transvaginal Indication ======== R/O Retained Products of Conception ; Delivery marked by avulsed cord; bleeding managed with oral Cytotec Method ====== Transvaginal ultrasound examination Uterus ====== Normal. Size 8.7 cm x 8.7 cm x 5.4 cm. 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 Position: retroverted Endometrial thickness, total 0.9 mm Right Ovary ========= Normal ovary. Size 3.4 cm x 2.0 cm x 3.6 cm Left Ovary ======== Normal ovary. Size 5.1 cm x 3.6 cm x 2.1 cm Impression ========= Transvaginal ultrasound demonstrates a retroflexed uterus with thin endometrium (1mm) with trilaminar appearance; no evidence of retained products of conception or hematoma. The right ovary appears normal, and the left ovary contains 1.6 x 2.9cm and 2.1 x 1.3cm simple cysts; incidental note is made of a trace amount of free fluid adjacent to the right ovary. Procedure Note Camilo Nino M.D. - 12/27/2024 Exam Type ========= OB Limited for RPOC, OB Transvaginal Indication ======== R/O Retained Products of Conception ; Delivery marked by avulsed cord; bleeding managed with oral Cytotec Method ====== Transvaginal ultrasound examination Uterus ====== Normal. Size 8.7 cm x 8.7 cm x 5.4 cm. 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 Position: retroverted Endometrial thickness, total 0.9 mm Right Ovary ========= Normal ovary. Size 3.4 cm x 2.0 cm x 3.6 cm Left Ovary ======== Normal ovary. Size 5.1 cm x 3.6 cm x 2.1 cm Impression ========= Transvaginal ultrasound demonstrates a retroflexed uterus with thinendometrium (1mm) with trilaminar appearance; no evidence of retainedproducts of conception or hematoma. The right ovary appears normal, and the left ovary contains 1.6 x 2.9cmand 2.1 x 1.3cm simple cysts; incidental note is made of a trace amount offree fluid adjacent to the right ovary. us Yuliana Mckenzie M.D. [facility] OB US PROCEDURES Final Result documented in this encounter Visit Diagnoses Diagnosis Bleeding Vaginal documented in this encounter Additional Health Concerns Assessment Noted Time PHQ-9 Depression Total Score: 7 12/28/19 25 11:10 AM CDT documented as of this encounter Care Teams Electrician Supervisor Airplane Relationship Specialty Start Date End Date Elsewhere, Pcp PCP - General 04/03/19 [place] 05/16/24 documented as of this encounter
--- OUTSIDE RECORDS SUMMARY | 2025-01-14 13:42 | XMS_ITS | Clinical Summary ---
Author Organization [facility] Address [address] [place] [id number] Care Team Providers Care Service Girl Name Role Phone Aleida Mueller MD Primary Care Provider [phone] Allergies Active Allergy Reactions Criticality Noted Date Comments Hymenoptera Allergenic Extract Edema Medium 11/12/2006 Buspirone Rash,Hives 11/22/2023 Venom-Honey Bee Other - Describe In Comment Field 05/01/2014 Venom-Wasp Other - Describe In Comment Field Medium 11/12/2006 Medications EPINEPHrine (EPIPEN) 0.3 mg/0.3 mL auto-injectorIndic ations:Allergic reaction, initial encounter Inject 0.3 mg (1 Pen) intramuscular each time if needed for Allergic Reaction. 2 Each 3 11/22/19 24 Active sertraline (Zoloft) 100 mg tabletIndications: Anxiety Take 1.5 Tablets (150 mg) by mouth once daily. 135 Tablet 3 11/22/19 24 Active valACYclovir (Valtrex) 500 mg tablet Take 500 mg by mouth two times daily. Active hydrOXYzine HCL (ATARAX) 25 mg tabletIndications: Anxiety Take 1 Tablet (25 mg) by mouth every 6 hours if needed for Anxiety. 25 Tablet 12/15/19 24 Active ondansetron (ZOFRAN ODT) 4 mg disintegrating tabletIndications: Viral gastroenteritis Place 2 Tablets (8 mg) on the tongue every 8 hours if needed for Nausea/Vomiting. 30 Tablet 12/15/19 24 Active albuterol HFA (PRO-AIR; VENTOLIN; PROVENTIL) 90 mcg/actuation inhalerIndications :Cough, unspecified type,Wheezing Inhale 1-2 Puffs by mouth every 4 hours if needed for Shortness Of Breath or Wheezing. 1 Each 01/25/20 24 Active hydrocortisone 1 % creamIndications:H jt Apply topically to affected area(s) 2 times daily if needed for Itching. 30 g 02/02/20 24 Active meclizine (ANTIVERT) 25 mg tabletIndications: Dizziness,Vertigo Take 1 Tablet (25 mg) by mouth 3 times daily if needed for Vertigo. 30 Tablet 02/21/20 24 Active metoclopramide (REGLAN) 5 mg tabletIndications: First trimester (HC) Take 1 Tablet (5 mg) by mouth four times daily before meals and at bedtime. 120 Tablet 3 03/27/19 25 Active PNV Comb.[id number],Car bonyl-FA (PNV 29-1) 29 mg iron- 1 mg tabIndications:Fir st trimester (HC) Take 1 Tablet by mouth once daily. 90 Tablet 3 05/16/19 25 Active aspirin enteric coated 81 mg tablet Take 81 mg by mouth. Active triamcinolone 0.5 % ointmentIndication s:Insect bite of right upper arm, initial encounter Apply topically to affected area(s) three times daily. 15 g 10/24/19 25 Active pseudoephedrine (SUDAFED) 30 mg tabletIndications: Right acute serous otitis media, recurrence not specified Take 2 Tablets (60 mg) by mouth every 6 hours if needed for Nasal Congestion. 30 Tablet 01/08/20 25 Active diphenhydrAMINE (BENADRYL) 25 mg capsuleIndications :Allergic reaction, initial encounter Take 1 Capsule (25 mg) by mouth every 4 hours if needed (Itching). 30 Capsule 01/20/20 22 2024 Discontin ued(*Franca ent states no longer taking) sertraline (ZOLOFT) 50 mg tablet Take 150 mg by mouth once daily in the morning. 2024 Discontin ued(*Franca ent states no longer taking) benzonatate (TESSALON) 100 mg capsuleIndications :Cough, unspecified type,Wheezing Take 1 Capsule (100 mg) by mouth 3 times daily if needed for Cough. 21 Capsule 01/25/20 24 2024 Discontin ued(*Franca ent states no longer taking) amoxicillin 875 mg tabletIndications: Non-recurrent acute suppurative otitis media of right ear without spontaneous rupture of tympanic membrane Take 1 Tablet (875 mg) by mouth two times daily for 7 days. 14 Tablet 01/05/20 25 2024 Hospital, Clinic, or Other Facility Administered Medication Ordered Dose Route Frequency Start Date End Date Status dexAMETHasone 10 mg/mL injection 10 mgIndications:Sore throat 10 mg Oral ONE TIME 01/04/2025 01/04/2025 Ended Active Problems Problem Noted Date Diagnosed Date care, subsequent in first [facility] 04/25/2024 Situational stress 03/27/2024 Overview (03/27/2024): children in Foster Care: CPS involvement. 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 Heartburn 07/29/2021 Overview (01/29/2022): Managed currently with Chad camara, and she will let us know if this is not working well enough for her. Herpes genitalis 07/29/2021 Overview (01/29/2022): No outbreaks since stopping prophylaxis. Valtrex 500 mg bid restarted at 36 weeks for prophylaxis. Vitamin D insufficiency 04/12/2018 Obesity, Class III, BMI 40-49.9 (morbid obesity) 04/12/2018 Major depression 04/12/2018 Anxiety 12/05/2014 Resolved Problems Problem Noted Date Diagnosed Date Resolved Date Bilateral pneumonia 01/29/2022 10/11/19 24 Influenza due to influenza A virus 01/29/2022 10/11/2023 Severe sepsis 01/29/2022 02/11/2022 Disease due to severe acute respiratory syndrome coronavirus 2 (SARS-CoV-2) 12/05/20212 11/2023 Encounter for full-term unco mplicated delivery 11/30/2021 02/11/2022 Overview (01/29/2022): OB education complete. The patient was admitted to the [facility] for spontaneous onset of labor. Her was complicated by obesity (BMI 50), gestational diabetes A1, history of prior delivery, LGA fetus, depression on medications. Her labor course progressed adequately without augmentation of labor, utilizing natural methods for pain management. Complications of labor included precipitous vaginal and a 60 second shoulder dystocia that resolved with delivery of the posterior arm. She had a , delivering a liveborn male with weight of 4.35 kg . Gestational age: 38w2d. occurred: 12/02/2021 9:45 PM Perineal lacerations or episiotomy: Perineal abrasion Lacerations were repaired with: none -- no repair needed Contraceptive methods administered during the delivery: None Both mother and baby were in stable condition at the conclusion of the procedure. The was transferred to the cares of the Neonatology team in stable condition. When the patient met appropriate criteria, she was transferred to the floor. She received her care within the [facility]. Large fetus causing disproportion 09/16/2021 02/11/2022 Overview (01/29/2022): Ultrasound on 09/09/2021 showed growth at the 98th percentile. US 10/18: EFW is 2567 g with growth at the 98th percentile; transverse presentation Growth US scheduled with [facility] on 11/28/2021. She will return later today to recheck position with US and for NST. Abnormal obstetric ultrasound scan 08/26/2021 02/11/2022 Overview (01/29/2022): Transverse presentation noted on last US. US ordered today to assess presentation, but patient left prior to US to get her significant other to an appointment and stated that she will return for this later today. EIF noted on advanced level US. No other soft markers for aneuploidy noted. Maternal Medicine recommended maternal serum screening. Maternity 21 returned normal. Marginal cord insertion also noted. complication before 08/07/2021 02/11/2022 Overview (01/29/2022): 11 cm, simple. Will monitor at the time of growth ultrasounds and . Stable on US on 09/09/2021, not visualized on US on 10/21/2021. She is aware of symptoms of torsion and the need to present to the emergency department if she has these. Strain of right shoulder 05/08/2020 38 weeks gestation of 04/12/2018 10/31/2018 Obesities, morbid 04/12/2018 10/31/2018 Late care 04/12/2018 9 macrosomia 04/12/2018 10/31/2018 Rh negative status during 04/12/2018 10/31/2018 History of gestational diabe bruna mellitus (GDM) 04/12/2018 10/31/2018 Cervical incompetence during in second trimester 12/05/2014 05/27/2015 Overview (12/05/2014): followed by [facility] 05/22/2015 Supervision of other normal 03/13/2014 05/27/2015 Overview (12/05/2014): second EDC 05/22/2015 Managed by Cachorro Merino: Dr. Bhatt History of cervical incompetence Chlamydia 02/21/2013 12/05/2014 Major depressive disorder, s raya episode, unspecified 09/21/2007 03/13/2014 Other malaise and fatigue 08/18/2007 Diarrhea 05/26/2006 03/13/2014 Encounters Date Type Department Care Team Description 01/07/2025 11:12 PM CDT - 01/07/2025 11:40 PM CDT Emergency [facility] [address] [place] [address] [place] Rodriguez MD Right acute serous otitis media, recurrence not specified (Primary Dx) Discharge Disposition: Home Self Care 01/07/2025 Travel 01/05/2025 Telephone [facility] [address] [place] [address] Annette Bailey NP Results 01/04/2025 7:35 PM CDT Office Visit [facility] [address] [facility] [place] [address] Annette Bailey NP Throat Pain/problem; Headache; Ear Pain/problem (Bilateral ear pain); Cough (Dry cough starting today.) 01/04/2025 Travel 11/19/2024 3:45 PM CDT Office Visit [facility] [address] [place] [address] Tasia Wolfe NP UTI (burning on urination. feels like she does not empty her bladder after voiding. pt is two weeks post . ) 11/19/2024 Travel 10/23/2024 12:54 PM CDT - 10/23/2024 1:29 PM CDT Emergency [facility] [address] [place] [address] Marilyn Hoffmann PA Insect bite of right upper arm, initial encounter (Primary Dx) Discharge Disposition: Home Self Care 10/22/2024 3:05 PM CDT Office Visit [facility] [address] [place] [address] José Oreilly PA Bite (Possible insect bite back of right upper arm. Noted today. Seems to be growing in size, burning/itching. ) 10/22/2024 Travel from Last 3 Months Immunizations Immunization Administration Dates Next Due COVID-19 vaccine (Moderna 100mcg/0.5mL) PF, MDV 05/01/2020,04/04/2020 DTP 07/09/1994, 4,1993,1993 HIB PRP-OMP (PedvaxHIB) 07/09/1994,09/11,1993,1993 Hepatitis B (Peds) 1993,1993, 993 Human Papilloma Virus Vaccine 01/07/2011, 008,08/03/2007 Influenza Virus, Unspecified 01/25/2018(Deferred : Patient Refused) Influenza, IIV4 03/13/2014 MMR 07/09/1994 Oral Polio Vaccine 1993,1993, 994 Tdap 01/25/2018,03/30/2015,01/07/2011 Varicella Vaccine 12/03/2021 Family History Medical History Relation Name Comments Diabetes Maternal Grandfather Diabetes Maternal Grandmother Leukemia Maternal Grandmother Asthma Mother Diabetes Paternal Grandfather Diabetes Paternal Grandmother Psychiatric illness Sister 2 bipolar, ADHD Relation Name Status Comments Daughter Alive Father Alive Maternal Grandfather Maternal Grandmother Mother Alive Paternal Grandfather Paternal Grandmother Sister 1 Alive Sister 2 Social History Tobacco Use Types Packs/Day Years Used Date Smoking Tobacco: Passive Smo ke Exposure - Never Smoker Smokeless Tobacco: Never Tobacco Cessation:Counseling Given: Yes Alcohol Use Standard Drinks/Week Comments Not Currently 0 (1 standard drink = 0.6 oz pur e alcohol) PHQ-2 Answer Date Recorded PHQ-2 TOTAL SCORE 1 06/07/2024 Social Connections Answer Date Recorded Do you often feel lonely or isolated from those around you? 0 10/22/2024 Financial Resource Strain Answer Date R ecorded Difficulty of Paying Living Expenses 3 10/22/2024 Difficulty of Paying Living Expenses Not on file 10/22/2024 Food Insecurity Answer Date Recorded Do you worry your food will run out before you are able to buy more? 1 10/22/2024 Transportation Needs Answer Date Record ed Does lack of transportation keep you from medica l appointments? 1 10/22/2024 Does lack of transportation keep you from work, meetings or getting things that you need? 1 10/22/2024 Housing Stability Answer Date Recorded What is your housing situation today? 1 10/22/2024 Interpersonal Safety Answer Date Record ed Are you being hit, kicked, p ushed or yelled at (see row info)? No 01/07/2025 Interpersonal Safety Abuse 12 - 18 Not on file 01/07/2025 Interpersonal Safety Ambulatory Vulnerability No t on file 01/07/2025 Utilities Answer Date Recorded Do you have trouble paying f or utilities (for example, heat, electricity, water, phone)? 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 Gender Identity Not on file Sexual Orientation Not on file Occupation Industry Job Start Date Job End Date [facility] Not on file Not on file Not on file Not on file Not on file Not on file Not on file Obstetrics History Para Term AB IAB SAB Ectopic Multiple Livin g Live Births 5 3 2 1 1 0 1 0 0 3 3 Date Outcome GA Total Labor Labor/2nd/3rd Weight Sex Type Anes PTL Mel A1 A5 Name Clin 2014 SAB 18w 2d SPONTA NEOUS Demis e Comments:cervical inco mpetance, non-viable fetus 2015 36w 2d 3.49 kg (7 lb 11 oz) F Vag Livin g Comments:PPROM, GDM 2018 Term 38w 6d 1h 25m/0h 11m 4.48 kg (9 lb 14 oz) M Vag Livin g 9 9 WILLIA MS,BB ALLISO N Delivery [facility]) 2021 Term 38w 0d 4.39 kg (9 lb 11 oz) Vag Livin g Comments cervical incompetence @ 17 w eeks with first preg resulting in loss Summary Episode Dates Number of Fetuses Estimated Date of Delivery 04/25/2024 - Present (01/14/2025) 1 11/16/2024 (set by Marycruz Ramos, RN on 04/25/2024 based on Alternate AHMET Entry) Dating Summary Based On AHMET GA Diff Last Menstrual Period on 02/10/2024 (Exact Date) 11/16/2024 Same Alternate AHMET Entry 11/16/2024 Working Overview and Plan :[facility] Delivery Plans Planned delivery method:Vaginal Vitals Pregravid Weight Height TWG (As of 01/14/2025) Pregrav id BMI 1.626 m (5' 4) Date GA Fund Present FHR Mvmt BP Weight Edema Alb Glu Ket Dil/ Eff/Sta 5 11w3d Inpatient data not displayed here. See encounter summary. 5 16w4d Inpatient data not displayed here. See encounter summary. 5 36w4d Inpatient data not displayed here. See encounter summary. 5 47w3d Inpatient data not displayed here. See encounter summary. Notes Progress Notes - Phone OB En counter - 04/25/2024 - GA:10w5d 04/25/2024 - 10w5d - Marycruz Ramos RN OB Education. This is her 5 . Her significant other Jeremy is involved. HPI: Currently she is feeling ok. She currently does not have custody of her children. They are in child protective services. She is working with a solar designer/installer to understand her rights with this . Mood:Emotional, never had in the past. Feels controlled with Zoloft counseled, information provided, and discussed Past Medical History: . Date Anxiety 04/12/2018 Cervical incompetence during in second trimester 05/03/2014 cervical incompetence at18wk non-viable fetus DM (diabetes mellitus), gestational, antepartum 04/26/2015 Major depression 04/12/2018 Obesity, Class III, BMI 40-49.9 (morbid obesity) (HC) 04/12/2018 Vitamin D insufficiency 04/12/2018 OB History Para Term AB Living 5 2 1 1 1 2 SAB IAB Ectopic Multiple Live Births 1 0 0 0 2 Obstetric Comments cervical incompetence @ 17 weeks with first preg resulting in loss Hx of precipitous delivery with last child Patient Active Problem List Diagnosis Code Anxiety F41.9 Vitamin D insufficiency E55.9 Obesity, Class III, BMI 40-49.9 (morbid obesity) (HC) E66.01 Major depression F32.9 Heartburn R12 Herpes genitalis A60.00 TIA involving vertebral artery G45.0 Situational stress F43.9 Current Outpatient Rx Medication Sig Dispense Refill albuterol HFA (PRO-AIR; VENTOLIN; PROVENTIL) 90 mcg/actuation inhaler Inhale 1-2 Puffs by mouth every 4 hours if needed for Shortness Of Breath or Wheezing. 1 Each 0 benzonatate (TESSALON) 100 mg capsule Take 1 Capsule (100 mg) by mouth 3 times daily if needed for Cough. 21 Capsule 0 diphenhydrAMINE (BENADRYL) 25 mg capsule Take 1 Capsule (25 mg) by mouth every 4 hours if needed (Itching). 30 Capsule 0 EPINEPHrine (EPIPEN) 0.3 mg/0.3 mL auto-injector Inject 0.3 mg (1 Pen) intramuscular each time if needed for Allergic Reaction. 2 Each 3 hydrocortisone 1 % cream Apply topically to affected area(s) 2 times daily if needed for Itching. 30 g 0 hydrOXYzine HCL (ATARAX) 25 mg tablet Take 1 Tablet (25 mg) by mouth every 6 hours if needed for Anxiety. 25 Tablet 0 meclizine (ANTIVERT) 25 mg tablet Take 1 Tablet (25 mg) by mouth 3 times daily if needed for Vertigo. 30 Tablet 0 metoclopramide (REGLAN) 5 mg tablet Take 1 Tablet (5 mg) by mouth four times daily before meals and at bedtime. 120 Tablet 3 ondansetron (ZOFRAN ODT) [address] 2 Tablets (8 mg) on the tongue every 8 hours if needed for Nausea/Vomiting. 30 Tablet 0 PNV Comb.[id number],Carbonyl-FA (PNV 29-1) 29 mg iron- 1 mg tab Take by mouth once daily. 90 Tablet 3 sertraline (Zoloft) 100 mg tablet Take 1.5 Tablets (150 mg) by mouth once daily. 135 Tablet 3 sertraline (ZOLOFT) 50 mg tablet Take 150 mg by mouth once daily in the morning. triamcinolone (ARISTOCORT; KENALOG) 0.1 % cream Apply topically to affected area(s) two times daily. 80 g 1 valACYclovir (Valtrex) 500 mg tablet Take 500 mg by mouth two times daily. Medications have been reviewed by me and are current to the best of my knowledge and ability. Discussed about the following topics, patient will receive information at initial OB visit: Nutrition: counseled, information provided, and discussed -Usual weight gain: 25-35 for women starting with normal weight. 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 Genetic testing: Not interested in genetics Calcium intake is adequate. women need 1,200 mg daily. A serving of food rich in calcium has 250 to 350 mg of calcium. (Examples include 8 oz of milk or fortified juice, 6 to 8 oz of yogurt. Three servings of calcium-rich food and your vitamin typically equal 1,200 mg daily. She does not take supplements. Takes vitamin D supplement. Caffeine: counseled, information provided, and discussed Limit caffeine each day to 200 mg. Coffee at coffee shops generally contain more caffeine, so be mindful of that. Sugar substitute:counseled, information provided, and discussed Fish:counseled, information provided, and discussed Eat only cooked fish- Parasites and bacteria in uncooked fish, such as sushi, can cause illness. Avoid smoked fish due to concerns about listeria. Lunch meats:counseled, information provided, and discussed Listeria-type of bacteria found in soil and water. Listeria can be found in raw meats and vegetables, foods that become contaminated after processing and raw or unpasteurized milk. Avoid foods high in calories from sugar and fat. Iron/protein intake Fluids: Drink 8 to 10 glasses of liquids each day. Increase if the weather is hot. Meds, Herbs, Vitamins: counseled, information provided, and discussed Given list of over the counter medication that could be used in at the approval of the OB provider. Was safe medication list sent through [employer] : Will send list of medications Sleep: adequate Alcohol/Chemical Use: none She does not smoke, and has not smoked in the past. Quit smoking: none Screened for Domestic Abuse: none Toxoplasmosis Precaution: counseled, information provided, and discussed Exposure to cats: No exposure Avoidance of sauna/hot tubs emphasized. What to expect during visits Bring a list of questions you have for the provider. -Initial Ultrasound between 8-10 weeks -Anatomy ultrasound 20 weeks. Frequency of visits: -Monthly until 28 weeks then biweekly until 36 weeks, then weekly until 40 weeks unless problems. -Reviewed Bloodwork to be done at first OB: CBC, Hepatitis B, HIV, RPR, Gonorrhea, Chlamydia, UA, URINE CULTURE, Drug screen, TSH, Blood type. RPR testing also done at 28 weeks and delivery. -RPR at 28 weeks and after delivery. Tdap shot at end of - Need for Rhogam shots based on blood typing done with labwork today. Rhogam shots at 28 weeks and 12 weeks later if still for Rh - mothers. Another Rhogam within 72 hours of delivery if baby Rh positive. Discussed resources available, nurses, OB MD, lacatation fitness consultant and Babystop class. Advised to check on breastpumps with insurance. Informed patient how to contact the triage nurse or the labor and delivery floor if experiencing any symptoms listed below. Warning signs: vaginal bleeding, fluid leaking from your vagina, severe abdominal pain, nausea/vomiting more than 4-5 times a day or if not able to keep anything down, fever more than 100.4, problems with urination and headache that doesn't go away with tylenol. Questions the patient has: Concerns about having to go to [facility] for delivery. A/P: OB Education. OB labs and US are ordered. She is in need of a prescription for vitamins and she has her next OB visit scheduled with Dr. Larose on 05/04/24 . 30 minutes spent with patient and greater than 50% was spent on counseling. Marycruz Ramos RN .................... 04/25/2024 10:03 AM F SALES OFFICER Last Filed Vital Signs Vital Sign Reading Time Taken Comments Blood Pressure 144/80 01/07/2025 11:16 PM CDT Pulse 81 01/07/2025 11:16 PM CDT Temperature 37 C (98.6 F) 01/07/2025 11:16 PM CDT Respiratory Rate 18 01/07/2025 11:16 PM CDT Oxygen Saturation 99% 01/07/2025 11:16 PM CDT Inhaled Oxygen Concentration - - Weight 137.9 kg (304 lb) 01/07/2025 11:16 PM CDT Height 162.6 cm (5' 4) 01/07/2025 11:16 PM CDT Body Mass Index 52.18 01/07/2025 11:16 PM CDT Plan of Treatment Health Maintenance Due Date Last Done Comments Influenza Vaccine (#1) 2024 03/13/2014 BMI (ht and wt on same day) for age 18+ 02/20/2025 02/21/2024, 10/11/2023, 02/11/2022, Additional history exists Depression screening for age 12+ 06/07/2025 06/07/2024, 05/09/2024, 04/05/2024, Additional history exists Pap test for age 21-65 05/17/2027 (Verified in Care Everywhere or Patient Record), 05/12/2021 (Verified in Care Everywhere or Patient Record), 03/13/2014 Tetanus booster 01/26/2028 01/25/2018, 03/15, 01/07/2011 RSV vaccine for adults or (1 - 1-dose 75+ series) 02/01/2068 Hepatitis B series for 19+ Completed 09/11, 1993, 1993 HPV series for age 9-45 Completed 01/08/20 11, 10/19/2007, 08/03/2007 Hepatitis C screening for age 18-79 Completed 05/31/2013 HIV for age 15-65 Completed 03/13/2014, 05/31/2013 Pneumococcal series for age 6-49 Aged Out No longer eligible based on patient's age to complete this topic Procedures Procedure Name Priority Date/Time Associated Diagnosis Comments STREP A PCR STAT 01/04/2025 7:49 PM CDT Sore throat THROAT RAPID STREP A WITH REFLEX STAT 01/04/2025 7:49 PM CDT Sore throat URINE CULTURE Add On 11/19/2024 4:19 PM CDT Complicated UTI (urinary tract infection) URINALYSIS MICROSCOPIC STAT 11/19/2024 4:19 PM CDT Urinary tract infection symptoms UA W/ SEDIMENT EXAM REFLEXED PER CRITERIA STAT 11/19/2024 4:19 PM CDT Urinary tract infection symptoms ANTI HIV 1/2 Routine 03/13/2014 12:18 PM CHIEF SALES OFFICER Supervision of other normal (HC) INSPECTOR AND CLERK THIN PREP PAP SCREEN IMAGED Routine 03/13/2014 11:57 AM CHIEF SALES OFFICER Screening for malignant neoplasm of the cervix ANTI HCV Routine 05/31/2013 12:23 PM CDT Screening for STDs (sexually transmitted diseases) from Last 3 Months or Most Recently Relevant to Health Maintenance Results * STREP A PCR (01/04/2025 7:49 PM CDT) Pathologist [facility] GROUP A STREP Negative 01/04/2025 8:39 PM CDT [facility] Throat SPECIMEN FROM THROAT / Unknown Non-Blood / Unknown 01/04/2025 7:49 PM CDT 01/04/2025 8:10 PM CDT Annette Bailey BEAM WARPER MICROBIOLOGY Final Result Performing Organization Address City/[facility]/ZIP Co de Phone Number [facility] [address] [place] [address] * THROAT RAPID STREP A WITH REFLEX (01/04/2025 7:49 PM CDT) Pathologist [facility] STREP A ANTIGEN Negative 01/04/2025 8:10 PM CDT [facility] Comment:PCR to follow. Throat SPECIMEN FROM THROAT / Unknown Non-Blood / Unknown 01/04/2025 7:49 PM CDT 01/04/2025 7:57 PM CDT Annette Bailey BEAM WARPER MICROBIOLOGY Final Result Performing Organization Address [facility]/ZIP Co de Phone Number [facility] [address] [place] [address] * (ABNORMAL) URINALYSIS MICROSCOPIC (11/19/2024 4:19 PM CDT) [facility] RBC >100(A) 0-2, None Seen /HPF 11/19/2024 4:36 PM CDT [facility] [facility] WBC 6-10(A) 0-2, 3-5, None Seen /HPF 11/19/2024 4:36 PM CDT [facility] BACTERIA Many(A) None Seen, Rare, Few Bacteria/H PF 11/19/2024 4:36 PM CDT [facility] EPITHELIAL CELLS Few None Seen, Few Epi/HPF 11/19/2024 4:36 PM CDT [facility] Urine URINE SPECIMEN / Unknown Non-Blood / Unknown 11/19/2024 4:19 PM CDT 11/19/2024 4:19 PM CDT Tasianunu PereyraRamya Furlo [facility] URINE Maria Luisa l Result Performing Organization Address [facility]/ZIP Co de Phone Number [facility] [address] [place] [address] * URINE CULTURE (11/19/2024 4:19 PM CDT) CULTURE <10,000 CFU/mL multiple organisms 11/20/2024 3:35 PM T [facility] Urine URINE SPECIMEN / Unknown Non-Blood / Unknown 11/19/2024 4:19 PM CDT 11/19/2024 4:19 PM CDT Tasia Bui [place] [facility] MICROBIOLOGY Maria Luisa l Result Performing Organization Address [facility]/ZIP Co de Phone Number [facility] [address] [place] [address], [place] * (ABNORMAL) UA W/ SEDIMENT EXAM REFLEXED PER CRITERIA (11/19/2024 4:19 PM CDT) COLOR Yellow Yellow Color 11/19/2024 4:46 PM T [facility] CLARITY Slightly Cloudy(A) Clear Clarity 11/19/2024 4:46 PM T [facility] SPECIFIC GRAVITY,URINE 1.020 1.010, 1.015, 1.020, 1.025 11/19/2024 4:46 PM [facility] PH,URINE 6.5 6.0, 7.0, 8.0, 5.5, 6.5, 7.5, 8.5 11/19/2024 4:46 PM [facility] UROBILINOGEN, QUALITATIVE Normal Normal EU/dl 11/19/2024 4:46 PM [facility] PROTEIN, URINE 30(A) Negative mg/dL 11/19/2024 4:46 PM CDT [facility] GLUCOSE, URINE Negative Negative mg/dL 11/19/2024 4:46 PM CDT [facility] KETONES,URINE Negative Negative mg/dL 11/19/2024 4:46 PM CDT [facility] BILIRUBIN,URI NE Negative Negative 11/19/2024 4:46 PM CDT [facility] OCCULT BLOOD,URINE Large(A) Negative 11/19/2024 4:46 PM CDT [facility] NITRITE Negative Negative 11/19/2024 4:46 PM CDT [facility] LEUKOCYTE ESTERASE Moderate(A) Negative 11/19/2024 4:46 PM CDT [facility] Urine URINE SPECIMEN / Unknown Non-Blood / Unknown 11/19/2024 4:19 PM CDT 11/19/2024 4:19 PM CDT us Tasia Wolfe [facility] URINE Maria Luisa l Result [facility] [address] [place] [address] * ANTI HIV 1/2 [95844.0] (03/13/2014 12:18 PM CHIEF SALES OFFICER) HIV-1/HIV-2 ANTIBODY Non-Reacti ve Non-Reacti ve 03/13/2014 8:59 PM CHIEF SALES OFFICER [facility] Blood specimen (specimen) BLOOD SPECIMEN / Unknown Venipuncture / Unknown 03/13/2014 12:18 PM CHIEF SALES OFFICER 03/13/2014 12:19 PM CHIEF SALES OFFICER Narrative [facility] - 03/13/2014 8:59 PM CHIEF SALES OFFICER HIV-1 p24 and HIV-1/HIV-2 Ab not detected us Aleida Mueller MD SEND OUTS Final Resu lt [facility] [address] [place] [address], [place] * INSPECTOR AND CLERK THIN PREP PAP SCREEN IMAGED (03/13/2014 11:57 AM CHIEF SALES OFFICER) INSPECTOR AND CLERK CYTOLOGY See Anatomic Pathology case 03/18/2014 12:04 PM CHIEF SALES OFFICER [facility] Specimen (specimen) (Cervical/Vagina l) Non-Blood / Unknown 03/13/2014 11:57 AM CHIEF SALES OFFICER 03/13/2014 11:57 AM CHIEF SALES OFFICER us Aleida Mueller MD PATHOLOGY/CYTOLOGY Final R esult [facility] [address] [place] [address], * ANTI HCV (05/31/2013 12:23 PM CDT) ANTI HCV Non-reacti ve [facility] Blood specimen (specimen) BLOOD SPECIMEN / Unknown 05/31/2013 12:23 PM CDT 05/31/2013 12:13 PM CDT us Estrella KHAN SEND OUTS Final Resu lt [facility] INTERNAL ZIP [address] [place] [address] from Last 3 Months or Most Recently Relevant to Health Maintenance Insurance MEDIC CHOICE CARE [facility] [id number] [place] [id number] * Guarantor: SYD DILLARD/FRANCISCO SCARLET Account Type Relation to Patient Date of Phone Billing Address [facility] [address] [place] [id number] Advance Directives * Full Code (Latest Code Status on File) Date Activated Date Inactivated Comments 01/29/2022 5:22 PM 2022 4:06 PM Question Answer Comments Code Status Discussion: Reviewed Preferences * Full Code Date Activated Date Inactivated Comments 04/12/2018 7:46 PM 04/14/2018 7:48 PM * Full Code Date Activated Date Inactivated Comments 04/25/2015 11:58 AM 04/25/2015 5:07 PM * Full Code Date Activated Date Inactivated Comments 04/19/2015 12:17 AM 04/19/2015 6:17 AM * Full Code Date Activated Date Inactivated Comments 04/18/2015 11:41 PM 04/19/2015 12:17 AM Care Teams Service Girl Relationship Specialty Start Date End Date Aleida Mueller MD [address] [facility] [place] [address] PCP - General Family Practice 03/13/14
--- OUTSIDE RECORDS SUMMARY | 2025-01-14 13:42 | XMS_ITS | Encounter Summary ---
Author Organization [facility] Address [address] [place] [address] Care Team Providers Care Travel Occupational Therapist Name Role Phone Elsewhere, Pcp Primary Care Provider Unavailabl e Encounter Details Date Type Department Care Team ([facility] st Contact Info) Description 11/29/2024 Clinical Communication Department of Neurology in [place], [place] [address] [place] [phone] Reilly Mejia M.D. [address] [place] [address] Social History Tobacco Use Types Packs/Day Years [...] things needed for daily living? No 11/07/2024 [facility] Utilities Answer Date Recorded In the past 12 months has [employer] electric, gas, oil, or water company threatened to shut off services in your home? No 11/07/2024 Depression Answer Date Recor ded PHQ-9 Total Score (max 27) 7 12/27 Housing Stability Answer Date Recorded What is your living situation today? I have a [facility] place to live 11/07/2024 Education Answer Date Recorded What is the highest level of school you have completed or the highest degree you have received? 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 Not on file Not on file documented as of this encounter Plan of Treatment Upcoming Encounters Date Type Department Care Team (Latest Contact Info) Description 01/26/2025 3:00 PM POSTAGE MACHINE OPERATOR Clinical Communication Virtual Review in [place], [place] [address] [place] [address] documented as of this encounter Visit Diagnoses Not on filedocumented in this encounter Additional Health Concerns Assessment Noted Time PHQ-9 Depression Total Score: 7 11/22/19 25 10:57 AM CDT documented as of this encounter Care Teams Travel Occupational Therapist Relationship Specialty Start Date End Date Elsewhere, Pcp PCP - General 04/03/19 Ainsley 05/16/24 documented as of this encounter
--- OUTSIDE RECORDS SUMMARY | 2025-01-14 13:42 | XMS_ITS | Encounter Summary ---
Author Organization [facility] Address [address] [place] [address] Care Team Providers Care Senior Technical Project Manager Name Role Phone Elsewhere, Pcp Primary Care Provider Unavailabl e Reason for Referral * Physical Therapy (Routine) - Closed Specialty Diagnoses / Procedures Referred By Contac t Referred To Contact Diagnoses Care And Lactating Procedures PT or OT eval and treat (first available) Malini Logan M.D. [address] [place] [address] Phone: tel: fax: [facility] Referral ID Status Reason Start Date Expiration Date Visits Re quested Visits Authorized [id number] Closed 11/09/2024 02/09/2026 1 1 * Outpatient (Routine) - Closed Specialty Diagnoses / Procedures Referred By Contac t Referred To Contact Obstetrics and Gynecology Diagnoses Care And Lactating Malini Logan M.D. [address] [place] [address] Phone: tel: fax: [facility] Referral ID Status Reason Start Date Expiration Date Visits Re quested Visits Authorized [id number] Closed 11/09/2024 05/11/2026 1 1 Scheduling Instructions 6 week PP visit with Chuy Encounter Details Date Type Department Care Team (Late st Contact Info) Description 11/09/2024 Clinical Communication [facility], [facility], [facility], Third Floor [address] [place] [address] Malini Logan M.D. [address] [place] [address] Social History Tobacco Use Types Packs/Day Years [...] things needed for daily living? No 11/07/2024 [facility] Utilities Answer Date Recorded In the past 12 months has e electric, gas, oil, or water company threatened to shut off services in your home? No 11/07/2024 Depression Answer Date Recor ded PHQ-9 Total Score (max 27) 12 12/05 Housing Stability Answer Date Recorded What is your living situation today? I have a [facility] place to live 11/07/2024 Education Answer Date Recorded What is the highest level of school you have completed or the highest degree you have received? 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 Not on file Not on file documented as of this encounter Plan of Treatment Upcoming Encounters Date Type Department Care Team (Latest Contact Info) Description 01/26/2025 3:00 PM CLINICAL APPLICATION SPECIALIST Clinical Communication Virtual Review in [address] [phone] Scheduled Referrals Name Type Priority Associated Diagnoses Order Schedule Obstetrics and Gynecology office visit (clinic) Outpatient Referral Routine Care And Lactating Expected: 12/21/2024, Expires: 02/09/2026 documented as of this encounter Visit Diagnoses Diagnosis Care And Lactating- Primary documented in this encounter Additional Health Concerns Assessment Noted Time PHQ-9 Depression Total Score: 7 09/01/19 25 9:40 AM CDT documented as of this encounter Care Teams Senior Technical Project Manager Relationship Specialty Start Date End Date Elsewhere, Pcp PCP - General 04/03/19 Ainsley 05/16/24 documented as of this encounter
--- OUTSIDE RECORDS SUMMARY | 2025-01-14 13:42 | XMS_ITS | Encounter Summary ---
Author Organization [facility] Address [address] [place] [address] Care Team Providers Care Copy Coordinator Name Role Phone Elsewhere, Pcp Primary Care Provider Unavailabl e Reason for Visit * Reason Onset Date Comments Menorrhagia 01/13/2025 Encounter Details Date Type Department Care Team (Late st Contact Info) Description 01/13/2025 Clinical Communication [facility], Third Floor [address] [place] [address] Vanessa Villanueva, RAshiaN. [address] [place] [phone] Menorrhagia Social History Tobacco Use Types Packs/Day Years [...] things needed for daily living? No 11/07/2024 [facility] Utilities Answer Date Recorded In the past 12 months has e electric, gas, oil, or water company threatened to shut off services in your home? No 11/07/2024 Depression Answer Date Recor ded PHQ-9 Total Score (max 27) 7 12/27 Housing Stability Answer Date Recorded What is your living situation today? I have a [facility] place to live 11/07/2024 Education Answer Date Recorded What is the highest level of school you have completed or the highest degree you have received? 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 - 01/13/2025 6:35 PM CDT Pt calling OB triage with concerns of heavy vaginal bleeding X2 days. She is soaking a pad every 1-1 1/2 hrs. Also c/o cramping. Passing small eraser size blood clots. Denies dizziness. Discussed with Dr Walls, recommends if bleeding doesn't lessen by tomorrow she could go to ED for eval. Also ifconcerns of dizziness, or feeling faint. Relayed the information to pt and she is comfortable with plan. documented in this encounter Plan of Treatment Upcoming Encounters Date Type Department Care Team (Latest Contact Info) Description 01/26/2025 3:00 PM PRIMER BOXER Clinical Communication Virtual Review in [address] [phone] documented as of this encounter Visit Diagnoses Not on filedocumented in this encounter Additional Health Concerns Assessment Noted Time PHQ-9 Depression Total Score: 7 12/28/19 25 11:10 AM CDT documented as of this encounter Care Teams Copy Coordinator Relationship Specialty Start Date End Date Elsewhere, Pcp PCP - General 04/03/19 Ainsley 05/16/24 documented as of this encounter
--- OUTSIDE RECORDS SUMMARY | 2025-01-14 13:42 | XMS_ITS | Clinical Summary ---
Author Organization [facility] Address [address] [place] [address]. [place] [address] Care Team Providers Care Distributing Clerk Name Role Phone No Ref-Primary, Physician Primary Care Provider Allergies Active Allergy Reactions Criticality Noted Date Comments Bee Venom Other (See Comments) 05/01/2014 Wasp Venom Protein Other (See Comments) Medium 007 Medications sertraline (ZOLOFT) 50 MG tablet Take 150 mg by mouth daily Active Family History Medical History Relation Comments Glaucoma No family hx of Macular Degeneration No family hx of Social History Tobacco Use Types Packs/Day Years Used Date Smoking Tobacco: Never Smokeless Tobacco: Never Tobacco Cessation:Counseling Given: Not Answered PHQ-2 Answer Date Recorded PHQ-2 Score 0 04/27/2023 Adolescent Education Answer Date Record ed Getting School Help Needed Not on file 03/18 Comments Unknown Sex and Gender Information Value Date Recorded Sex Assigned at Not on file Legal Sex Female 10:02 AM PERSONNEL INTERVIEWER Gender Identity Not on file Sexual Orientation Not on file Plan of Treatment Health Maintenance Due Date Last Done Comments ADVANCE CARE PLANNING 1993 ANNUAL REVIEW OF HM ORDERS 1993 YEARLY PREVENTIVE VISIT 02/01/1996 HIV SCREENING 02/01/2008 HEPATITIS C SCREENING 2011 PAP 2014 PHQ-2 (once per calendar year) 2024 04/27/2023, 03/26/2023 COVID-19 VACCINE ( season) 2024 05/01/2020, 04/04/2020 INFLUENZA VACCINE (#1) 2024 03/13/2014, 2013 DTAP/TDAP/TD VACCINE (8 - Td or Tdap) 01/26/2028 01/25/2018, 03/30/2015, 01/07/2011, Additional history exists ZOSTER VACCINE (1 of 2) 2043 HEPATITIS B VACCINE Completed 1993, 1993, 1993 HPV VACCINE Completed 01/07/2011, 08/0 08/2007, 08/03/2007 MENINGITIS VACCINE Aged Out No longer eligible based on patient's age to complete this topic PNEUMOCOCCAL VACCINE: PEDIATRICS (0 to 5 YEARS) AND AT-RISK PATIENTS (6 to 49 YEARS) Aged Out No longer eligible based on patient's age to complete this topic Insurance [facility] Care Teams Distributing Clerk Relationship Specialty Start Date End Date No Ref-Primary, Physician PCP - General 03/23/23
--- OUTSIDE RECORDS SUMMARY | 2025-01-14 13:42 | XMS_ITS | Encounter Summary ---
Author Organization [facility] Address [address] [place] [address] Care Team Providers Care Card Scraper Name Role Phone Elsewhere, Pcp Primary Care Provider Unavailabl e Encounter Details Date Type Department Care Team (Late st Contact Info) Description 11/29/2024 Clinical Communication [facility], Third Floor [address] [place] [address] Ольга Godwin M.D. [address] [place] [phone] Social History Tobacco Use Types Packs/Day Years [...] things needed for daily living? No 11/07/2024 [facility] Utilities Answer Date Recorded In the past 12 months has th [employer] electric, gas, oil, or water company threatened to shut off services in your home? No 11/07/2024 Depression Answer Date Recor ded PHQ-9 Total Score (max 27) 7 12/27 Housing Stability Answer Date Recorded What is your living situation today? I have a [facility] place to live 11/07/2024 Education Answer Date Recorded What is the highest level of school you have completed or the highest degree you have received? 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 Not on file Not on file documented as of this encounter Plan of Treatment Upcoming Encounters Date Type Department Care Team (Latest Contact Info) Description 01/26/2025 3:00 PM GLACING MACHINE TENDER Clinical Communication Virtual Review in [address] [phone] documented as of this encounter Visit Diagnoses Diagnosis Vertebro Basilar Artery Syndrome- Primary documented in this encounter Additional Health Concerns Assessment Noted Time PHQ-9 Depression Total Score: 7 11/22/19 25 10:57 AM CDT documented as of this encounter Care Teams Card Scraper Relationship Specialty Start Date End Date Elsewhere, Pcp PCP - General 04/03/19 Ainsley 05/16/24 documented as of this encounter
--- OUTSIDE RECORDS SUMMARY | 2025-01-14 13:42 | XMS_ITS | Clinical Summary ---
Author Organization [facility] Address [address] [place] [address] Care Team Providers Care Receiver Name Role Phone Elsewhere, Pcp Primary Care Provider Unavailabl e Source Comments Patient records contain information from all sites at [facility]. For routine questions regarding patient records, call [phone] during business hours, M-F 8:00 AM - 5:00 PM Central Time. Record requests for emergency care only can be directed to [phone] at any time.[facility] Allergies Active Allergy Reactions Criticality Noted Date Comments Bee Venom Protein (Honey Bee) Other (see comments) 05/01/2014 Buspirone Hives only, no other systemic symptoms 05/09/2024 Hymenoptera Allergenic Extract Edema (Reselect Reaction) Medium 11/12/2006 Medications prenat.vits,c al,min-iron-f olic tablet Take 1 tablet by mouth daily. 015 Active hydrOXYzine (Atarax) 25 mg tablet Take 25 mg by mouth every 6 (six) hours as needed for anxiety. Active albuterol 90 mcg/actuation inhaler Inhale 1-2 puffs every 4 (four) hours as needed. 024 Active diphenhydrAMI NE (BenadryL) 25 mg capsule Take 25 mg by mouth every 4 (four) hours as needed. 022 Active EPINEPHrine 0.3 mg/0.3 mL injection syringeIndica tions:Allergy Bee Sting Personal History Inject 0.3 mL (0.3 mg total) intramuscularly as needed for anaphylaxis. Inject into the thigh. 1 each 2 Active meclizine (Antivert) 12.5 mg tablet Take 12.5 mg by mouth 3 (three) times a day as needed for dizziness. Active sertraline (Zoloft) 100 mg tablet Take 1.5 tablets (150 mg total) by mouth daily. 135 tablet Active acetaminophen (TylenoL) 500 mg tablet Take 2 tablets (1,000 mg total) by mouth every 6 (six) hours as needed for mild pain or score 1-3 of 10, moderate pain or score 4-6 of 10 or severe pain or score 7-10 of 10. Alternate every 3 hours with ibuprofen. Do not exceed 4,000 mg or 4 g in 24 hours. Active ibuprofen 600 mg tablet Take 1 tablet (600 mg total) by mouth every 6 (six) hours as needed for mild pain or score 1-3 of 10, moderate pain or score 4-6 of 10 or severe pain or score 7-10 of 10. Alternate every 3 hours with acetaminophen. 100 tablet 1 Active aspirin [address] tablet Take 2 tablets (162 mg total) by mouth daily. Active metoclopramid e (Reglan) 10 mg tablet Take 10 mg by mouth as needed. Active iron,carbonyl -vitamin C (Vitron-C) 65 mg iron- [address] tablet Take 1 tablet (65 mg of iron total) by mouth every other day. Do not crush or chew. 30 tablet 2 2024 Discontinued alum-mag hydroxide-sim eth (Maalox) 200-200-20 mg/5 mL suspension Take 30 mL by mouth every 4 (four) hours as needed for indigestion (Per patient preference). 2024 Discontinued magnesium hydroxide (Milk of Magnesia) 400 mg/5 mL suspension Take 30 mL by mouth every 8 (eight) hours as needed (Constipation). 150 mL 1 2024 Discontinued polyethylene glycol (Miralax) 17 gram powder packet Take 1 packet (17 g total) by mouth daily as needed for constipation. Dissolve each 17 g dose in 240 mLs (8 ounces) of beverage. 2024 Discontinued Active Problems Problem Noted Date Diagnosed Date Care And Lactating 11/08/2024 Delivery Vaginal Normal Spontaneous 11/05/2024 Overview (11/08/2024): The patient was admitted to the [facility][1] for induction of labor for GDMA2. 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 Her labor course was augmented with pitocin and AROM, utilizing epidural anesthesia for pain management. Complications of labor included nothing -- it was uncomplicated. She had a , delivering a liveborn male with weight of 3.84 kg. Gestational age: 39w1d. occurred: 56:36 AM Perineal lacerations or episiotomy: Intact Lacerations were repaired with: none -- no repair needed Contraceptive methods administered during the delivery: None Both mother and baby were in stable condition at the conclusion of the procedure. When the patient met appropriate criteria, she was transferred to the floor. She received her care at [facility]. 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 Patient reports this happened when walking through [employer]; no trauma or precipitating event. -this reportedly caused cerebellar strokes or TIA -she did see Optho for assessment of papilledema and possible IIH -normotensive in clinic today - growth: EFW 2542 g (5 lb 10 oz) 62%, AC 80% at 34 weeks (10/05/24) [facility] Recommendations: : Routine: Continue care with complex care, next 07/28 Shared care with MFM, next around 32w for delivery planning, scheduled 09/13 Genetics: Declined NIPT offered today; no structural anomalies noted on ultrasound History of vertebral artery dissection: Records have been requested and are scanned in the media tab from [place] [facility] Aspirin 81 mg daily until delivery, will initiate BP goal <140/90, likely <130/80 No additional APT/anticoagulation Neurology consultation placed; completed on 07/25/24 Vascular medicine consultation placed Baseline HELLP labs: CBC, CMP complete; urine protein:creatine ratio (24h if greater than/= 0.15) OB anesthesia consultation 32w Suspicion for IIH Neurology consultation as above Continue optometry/ophthalmology follow-up Concern for cervical insufficiency May consider additional cervical length prior to 23w5d Placenta previa Repeat transvaginal ultrasound 28-32 weeks surveillance: Serial growth ultrasound q3-4w in the third trimester Weekly surveillance (NST or BPP) at 34w; earlier as indicated Delivery: Location: [place] Timing: Per routine obstetric indication, elective risk reducing 39-40w if not indicated earlier Mode: Per routine indication, no contraindication to vaginal from vertebral artery dissection standpoint at this time Assessment & Plan (10/19/2024 10:32 AM CDT): 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 Patient reports this happened when walking through [employer]; no trauma or precipitating event. -this reportedly caused cerebellar strokes or TIA -follow up is unclear; she did see Optho for assessment of papilledema and possible IIH -normotensive in clinic today - growth: EFW 2542 g (5 lb 10 oz) 62%, AC 80% at 34 weeks (10/05/24) [facility] Recommendations: : Routine: Continue care with complex care, next 07/28 Shared care with MF, next around 32w for delivery planning, scheduled 09/13 Genetics: Declined NIPT offered today; no structural anomalies noted on ultrasound History of vertebral artery dissection: Records have been requested and are scanned in the media tab from [facility] Aspirin 81 mg daily until delivery, will initiate BP goal <140/90, likely <130/80 No additional APT/anticoagulation Neurology consultation placed; completed on 07/25/24 Vascular medicine consultation placed Baseline HELLP labs: CBC, CMP complete; urine protein:creatine ratio (24h if greater than/= 0.15) OB anesthesia consultation 32w Suspicion for IIH Neurology consultation as above Continue optometry/ophthalmology follow-up Concern for cervical insufficiency May consider additional cervical length prior to 23w5d Placenta previa Repeat transvaginal ultrasound 28-32 weeks surveillance: Serial growth ultrasound q3-4w in the third trimester Weekly surveillance (NST or BPP) at 34w; earlier as indicated Delivery: Location: [place] Timing: Per routine obstetric indication, elective risk reducing 39-40w if not indicated earlier Mode: Per routine indication, no contraindication to vaginal from vertebral artery dissection standpoint at this time Assessment & Plan (10/05/2024 2:56 PM CDT): 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 Patient reports this happened when walking through [employer]; no trauma or precipitating event. -this reportedly caused cerebellar strokes or TIA -follow up is unclear; she did see Optho for assessment of papilledema and possible IIH -normotensive in clinic today [facility] Recommendations: : Routine: Continue care with complex care, next 07/28 Shared care with [facility], next around 32w for delivery planning, scheduled 09/13 Genetics: Declined NIPT offered today; no structural anomalies noted on ultrasound History of vertebral artery dissection: Records have been requested and are scanned in the media tab from [place] [facility] Aspirin 81 mg daily until delivery, will initiate BP goal <140/90, likely <130/80 No additional APT/anticoagulation Neurology consultation placed; completed on 07/25/24 Vascular medicine consultation placed Baseline HELLP labs: CBC, CMP complete; urine protein:creatine ratio (24h if greater than/= 0.15) OB anesthesia consultation 32w Suspicion for IIH Neurology consultation as above Continue optometry/ophthalmology follow-up Concern for cervical insufficiency May consider additional cervical length prior to 23w5d Placenta previa Repeat transvaginal ultrasound 28-32 weeks surveillance: Serial growth ultrasound q3-4w in the third trimester Weekly surveillance (NST or BPP) at 34w; earlier as indicated Delivery: Location: [place] Timing: Per routine obstetric indication, elective risk reducing 39-40w if not indicated earlier Mode: Per routine indication, no contraindication to vaginal from vertebral artery dissection standpoint at this time Assessment & Plan (07/28/2024 5:57 PM CDT): 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 Patient reports this happened when walking through [employer]; no trauma or precipitating event. -this reportedly caused cerebellar strokes or TIA -follow up is unclear; she did see Optho for assessment of papilledema and possible IIH -normotensive in clinic today [facility] Recommendations: : Routine: Continue care with complex care, next 07/28 Shared care with [facility], next around 32w for delivery planning, scheduled 09/13 Genetics: Declined NIPT offered today; no structural anomalies noted on ultrasound History of vertebral artery dissection: Records have been requested and are scanned in the media tab from [facility] [facility] Aspirin 81 mg daily until delivery, will initiate BP goal <140/90, likely <130/80 No additional APT/anticoagulation Neurology consultation placed; completed on 07/25/24 Vascular medicine consultation placed Baseline HELLP labs: CBC, CMP complete; urine protein:creatine ratio (24h if greater than/= 0.15) OB anesthesia consultation 32w Suspicion for IIH Neurology consultation as above Continue optometry/ophthalmology follow-up Concern for cervical insufficiency May consider additional cervical length prior to 23w5d Placenta previa Repeat transvaginal ultrasound 28-32 weeks surveillance: Serial growth ultrasound q3-4w in the third trimester Weekly surveillance (NST or BPP) at 34w; earlier as indicated Delivery: Location: [place] Timing: Per routine obstetric indication, elective risk reducing 39-40w if not indicated earlier Mode: Per routine indication, no contraindication to vaginal from vertebral artery dissection standpoint at this time Assessment & Plan (07/28/2024 5:46 PM CDT): -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 Patient reports this happened when walking through [employer]; no trauma or precipitating event. 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 Patient reports this happened when walking through [employer]; no trauma or precipitating event. 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 Patient reports this happened when walking through [employer]; no trauma or precipitating event. 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 Assessment & Plan (11/01/2024 4:38 PM CDT): -Valtrex at 36 weeks--> Rx sent Assessment & Plan (10/19/2024 2:31 PM CDT): -Valtrex at 36 weeks--> new Rx sent today Assessment & Plan (10/05/2024 2:56 PM CDT): -Valtrex at 36 weeks Assessment & Plan (07/28/2024 5:57 PM CDT): -Valtrex at 36 weeks Assessment & Plan (06/22/2024 9:03 AM CDT): -will initiate Valtrex 500 mg bid at 36 weeks for prophylaxis. Assessment & Plan (05/16/2024 5:38 PM HOME COMPANION): -will initiate Valtrex 500 mg bid at 36 weeks for prophylaxis. Type O Blood Rhesus Negative 11/26/2017 Assessment & Plan (11/01/2024 4:38 PM CDT): -plan Rhogam at 28 weeks--> received on 09/27/24 Assessment & Plan (10/19/2024 10:32 AM CDT): -plan Rhogam at 28 weeks--> received on 09/27/24 Assessment & Plan (10/05/2024 2:56 PM CDT): -plan Rhogam at 28 weeks--> received on 09/27/24 Assessment & Plan (07/28/2024 5:57 PM CDT): -plan Rhogam at 28 weeks Assessment & Plan (07/28/2024 2:18 PM CDT): -plan Rhogam at 28 weeks Assessment & Plan (05/16/2024 5:38 PM HOME COMPANION): -plan Rhogam Personal History Of Gestational Diabetes 018 Overview (05/16/2024): -h/o GDM x 2 -self reports that she is pre-diabetic -Hgb A1c ordered with new OB labs Assessment & Plan (10/19/2024 2:31 PM CDT): -elevated one hour GCT -declined 3 hour GTT; did blood sugar testing with 25% of values elevated overall (mostly fasting) -will continue with QID blood sugar testing and order Nutrition Counseling at next visit -started NPH insulin 12 units QHS on 09/12/24 due to elevated fasting values -currently taking 22 units QHS--> increased to 24 units today -overall post-prandial values in goal -send in blood sugars in 1 week; reminder flag placed Assessment & Plan (07/28/2024 5:57 PM CDT): -h/o GDM x 2 -self reports that she is pre-diabetic -Hgb A1c ordered with new OB labs--> 5.2% -plan GDM assessment at 24 weeks-->patient prefers to check home blood sugars x 2 weeks; started on 07/27/24. She will send result in via Portal when completed. Reviewed fasting and three post-prandial values per day. Assessment & Plan (06/22/2024 11:40 AM CDT): -h/o GDM x 2 -self reports that she is pre-diabetic -Hgb A1c ordered with new OB labs--> 5.2% -plan GDM assessment at 24 weeks Assessment & Plan (05/16/2024 5:38 PM HOME COMPANION): -h/o GDM x 2 -self reports that she is pre-diabetic -Hgb A1c ordered with new OB labs -plan GDM assessment at 24 weeks Body Mass Index 45.0 To 49.9 Adult 11/26/2017 Overview (05/16/2024): Assessment & Plan (11/01/2024 4:38 PM CDT): -discussed limiting weight gain to 11-20 pounds; TWG has been at goal -plan serial growth US starting at 28 weeks -plan weekly testing at 34 weeks -delivery timing by 40 weeks Assessment & Plan (10/19/2024 10:32 AM CDT): -discussed limiting weight gain to 11-20 pounds -plan serial growth US starting at 28 weeks -plan weekly testing at 34 weeks -delivery timing by 40 weeks Assessment & Plan (07/28/2024 5:57 PM CDT): -discussed limiting weight gain to 11-20 pounds -plan serial growth US starting at 28 weeks -plan weekly testing at 34 weeks -delivery timing by 40 weeks Assessment & Plan (06/22/2024 9:03 AM CDT): -discussed limiting weight gain to 11-20 pounds -plan serial growth US starting at 28 weeks -plan weekly testing at 34 weeks -delivery timing by 40 weeks Assessment & Plan (05/16/2024 5:38 PM HOME COMPANION): -discussed limiting weight gain to 11-20 pounds -plan serial growth US starting at 28 weeks -plan weekly testing at 34 weeks -delivery timing by 40 weeks Depression Anxiety 11/26/2017 Overview (05/16/2024): -on Zoloft 150 mg daily -PHQ-9 was 6 at [facility] -FLORENCIA-7 was 6 at [facility] -continue to follow moods and plan for 2 week PP mood check Assessment & Plan (11/01/2024 4:38 PM CDT): -on Zoloft 150 mg daily -PHQ-9 was 6 at [facility]--> 7 at 28 weeks -FLORENCIA-7 was 6 at [facility] -continue to follow moods and plan for 2 week PP mood check Assessment & Plan (10/19/2024 10:32 AM CDT): -on Zoloft 150 mg daily -PHQ-9 was 6 at [facility]--> 7 at 28 weeks -FLORENCIA-7 was 6 at [facility] -continue to follow moods and plan for 2 week PP mood check Assessment & Plan (10/05/2024 2:56 PM CDT): -on Zoloft 150 mg daily -PHQ-9 was 6 at [facility] -FLORENCIA-7 was 6 at [facility] -continue to follow moods and plan for 2 week PP mood check Assessment & Plan (07/28/2024 5:57 PM CDT): -on Zoloft 150 mg daily -PHQ-9 was 6 at [facility] -FLORENCIA-7 was 6 at [facility] -continue to follow moods and plan for 2 week PP mood check Assessment & Plan (06/22/2024 9:03 AM CDT): -on Zoloft 150 mg daily -PHQ-9 was 6 at [facility] -FLORENCIA-7 was 6 at [facility] -continue to follow moods and plan for 2 week PP mood check Assessment & Plan (05/16/2024 5:38 PM HOME COMPANION): -on Zoloft 150 mg daily -PHQ-9 was 6 at [facility] -FLORENCIA-7 was 6 at [facility] -continue to follow moods and plan for 2 week PP mood check Resolved Problems Problem Noted Date Diagnosed Date Resolved Date Psychosocial Circumstance 12/26/2024 Overview (12/26/2024): 11/21/24: Older children not currently living with them; CPS currently involved Daughter, age 9, lives with family friend Sons, ages 6 and 2 -2 year old in foster care with paternal grandparents -6 year old lives with his father Bleeding Vaginal 11/29/2024 12/26/2024 39 Weeks Gestation 11/07/2024 12/26/2024 False Labor At Or After 37 C ompleted Weeks Of Gestation 11/06/2024 12/26/2024 Acute Candidiasis Of Vulva And Vagina 11/06/2024 12/26/2024 Trichomonas Urogenital 10/05/202412/27 Overview (10/05/2024): -positive on Pap May 2024 -confirmed with RNA test on 09/13/24 -Rx sent for patient and partner Assessment & Plan (10/19/2024 10:32 AM CDT): -positive on Pap May 2024 -confirmed with RNA test on 09/13/24 -patient and partner confirmed treatment Assessment & Plan (10/05/2024 5:34 PM CDT): -positive on Pap May 2024 -confirmed with RNA test on 09/13/24 -Rx sent for patient and partner; they confirmed that they have both taken their medication Pelvic And Perineal Pain 10/05/2024 Assessment & Plan (10/05/2024 5:36 PM CDT): Right hip and leg pain has improved since stopping work, likely related to and job demands. Pelvic floor physical therapy was discussed to manage pain and improve mobility by identifying muscle tension and providing exercises. - Refer to pelvic floor physical therapy for assessment and management of pelvic pain. Shortness Of Breath 09/05/2024 12/27/19 25 Diabetes Mellitus Gestationa l Insulin Controlled 08/15/2024 12/27/2024 Overview (08/15/2024): -elevated one hour GCT -declined 3 hour GTT; did blood sugar testing with 25% of values elevated overall (mostly fasting) -will continue with QID blood sugar testing and order Nutrition Counseling at next visit -will alter care plan based on glucose control Assessment & Plan (11/01/2024 4:38 PM CDT): -elevated one hour GCT -declined 3 hour GTT; did blood sugar testing with 25% of values elevated overall (mostly fasting) -will continue with QID blood sugar testing and order Nutrition Counseling at next visit -started NPH insulin 12 units QHS on 09/12/24 due to elevated fasting values -currently taking 24 units QHS--> increased to 26 units today -overall post-prandial values in goal Assessment & Plan (10/19/2024 2:31 PM CDT): -elevated one hour GCT -declined 3 hour GTT; did blood sugar testing with 25% of values elevated overall (mostly fasting) -will continue with QID blood sugar testing and order Nutrition Counseling at next visit -started NPH insulin 12 units QHS on 09/12/24 due to elevated fasting values -currently taking 22 units QHS--> increased to 24 units today -overall post-prandial values in goal -send in blood sugars in 1 week; reminder flag placed Assessment & Plan (10/05/2024 5:34 PM CDT): -elevated one hour GCT -declined 3 hour GTT; did blood sugar testing with 25% of values elevated overall (mostly fasting) -will continue with QID blood sugar testing and order Nutrition Counseling at next visit -started NPH insulin 12 units QHS on 09/12/24 due to elevated fasting values; currently taking 14 units QHS -will increase to 18 units QHS and reassess in 3-5 days; very likely will need to add morning NPH insulin. Log book given today to help track numbers and make it easier to send in via Portal -flag placed for follow up on 10/10/24 Assessment & Plan (08/31/2024 11:18 AM CDT): -elevated one hour GCT -declined 3 hour GTT; did blood sugar testing with 25% of values elevated overall (mostly fasting) -will continue with QID blood sugar testing and order Nutrition Counseling at next visit -will alter care plan based on glucose control Talked about being more strict about glucose monitoring and fasting goal 70-95. Thrombocytopenia 08/02/2024 1 Overview (10/29/2024): -144K at 25 weeks -repeat at 36 weeks prior to delivery--> 135K Assessment & Plan (11/01/2024 4:38 PM CDT): -144K at 25 weeks -143K at 32 weeks -145K at 34 weeks -135K at 37 weeks Assessment & Plan (10/19/2024 10:32 AM CDT): -144K at 25 weeks -143K at 32 weeks -145K at 34 weeks Assessment & Plan (10/05/2024 5:34 PM CDT): -144K at 25 weeks -143K at 32 weeks -repeat at 36 weeks, ordered today High Risk 07/28/2024 07/29/19 25 Positive Group B Streptococcus 07/04/2024 12/27/2024 Overview (07/04/2024): -GBS bacteruria >100K on 06/22/24 -will Rx Amoxicillin 875 mg BID for 5 days and retest 2 weeks after completion -does NOT need GBS swab at 36 weeks -will plan intrapartum prophylaxis in labor Assessment & Plan (11/01/2024 4:38 PM CDT): -plan intrapartum prophylaxis Assessment & Plan (10/19/2024 10:32 AM CDT): -plan intrapartum prophylaxis Assessment & Plan (10/05/2024 2:56 PM CDT): -initially diagnosed at outside facility -Rx Keflex on 05/01/24; per patient, she finished antibiotics on 05/10/24 -plan urine cultures each trimester -GBS bacteruria >100K on 06/22/24 -will Rx Amoxicillin 875 mg BID for 5 days and retest 2 weeks after completion -urine culture 07/28/24 was negative -does NOT need GBS swab at 36 weeks -will plan intrapartum prophylaxis in labor Assessment & Plan (07/28/2024 5:57 PM CDT): -initially diagnosed at outside facility -Rx Keflex on 05/01/24; per patient, she finished antibiotics on 05/10/24 -plan urine cultures each trimester -GBS bacteruria >100K on 06/22/24 -will Rx Amoxicillin 875 mg BID for 5 days and retest 2 weeks after completion--ordered today -does NOT need GBS swab at 36 weeks -will plan intrapartum prophylaxis in labor Complete Placenta Previa Wit hout Hemorrhage Second Trimester 06/22/2024 12/26/2024 Overview (10/19/2024): RESOLVED -noted on anatomy US -patient reports spotting after intercourse only; no other bleeding -pelvic rest and activity restrictions reviewed and letter given for work accommodations -reviewed importance of promptly reporting to OB Triage/closest hospital for any vaginal bleeding -plan TVUS at 28 and/or 32 weeks Assessment & Plan (10/19/2024 10:32 AM CDT): -noted on anatomy US -RESOLVED on US on 08/31/24 at 29 weeks Assessment & Plan (10/05/2024 2:56 PM CDT): -noted on anatomy US -RESOLVED on US on 08/31/24 at 29 weeks Assessment & Plan (07/28/2024 5:57 PM CDT): -noted on anatomy US -patient reports spotting after intercourse only; no other bleeding -pelvic rest and activity restrictions reviewed and letter given for work accommodations -reviewed importance of promptly reporting to OB Triage/closest hospital for any vaginal bleeding -plan TVUS at 28 and/or 32 weeks Assessment & Plan (06/22/2024 12:25 PM CDT): -noted on anatomy US -patient reports spotting after intercourse only; no other bleeding -pelvic rest and activity restrictions reviewed and letter given for work accommodations -reviewed importance of promptly reporting to OB Triage/closest hospital for any vaginal bleeding -plan TVUS at 28 and/or 32 weeks Headache 06/22/2024 Assessment & Plan (10/19/2024 10:32 AM CDT): -Talked about resting during heat and drinking plenty of water. Talked about signs of preeclampsia that would make a headache more concerning. -seen in ED on 06/05/24 for headache -had CT scan due to history of vertebral artery dissection; normal findings -Reglan has been effective recently for her headaches Assessment & Plan (10/05/2024 5:34 PM CDT): -Talked about resting during heat and drinking plenty of water. Talked about signs of preeclampsia that would make a headache more concerning. -seen in ED on 06/05/24 for headache -had CT scan due to history of vertebral artery dissection; normal findings -Reglan has been effective recently for her headaches Assessment & Plan (08/31/2024 11:18 AM CDT): Talked about resting during heat and drinking plenty of water this weekend. Talked about signs of preeclampsia that would make a headache more concerning. Reassured at this time. -seen in ED on 06/05/24 for headache -had CT scan due to history of vertebral artery dissection; normal findings -reviewed headache management in ; has not tried acetaminophen + caffeine -she shares that headaches are often due to not being able to take breaks and eat at work; she has been provided with a work accommodations letter. Has escalated this to HR at work. Assessment & Plan (07/28/2024 5:57 PM CDT): -seen in ED on 06/05/24 for headache -had CT scan due to history of vertebral artery dissection; normal findings -reviewed headache management in ; has not tried acetaminophen + caffeine -she shares that headaches are often due to not being able to take breaks and eat at work; she has been provided with a work accommodations letter. She will escalate this to HR at work. Assessment & Plan (07/28/2024 2:18 PM CDT): -seen in ED on 06/05/24 for headache -had CT scan due to history of vertebral artery dissection; normal findings Deficiency Iron 05/17/2024 12/27/2024 Overview (08/02/2024): Ferritin 24 in first trimester -add oral iron and recheck in third trimester Ferritin 12 at 25 weeks -offer IV iron at next visit Assessment & Plan (11/01/2024 4:38 PM CDT): Got IV iron infusion, talked about checking iron again when she is near delivery--> 10/26/24 ferritin was 64 and Hgb was 13.2 Assessment & Plan (10/19/2024 10:32 AM CDT): Got IV iron infusion, talked about checking iron again when she is near delivery Assessment & Plan (10/05/2024 2:56 PM CDT): Got IV iron infusion, talked about checking iron again when she is near delivery Assessment & Plan (08/31/2024 11:18 AM CDT): Got IV iron infusion since last visit, talked about checking iron again when she is near delivery Assessment & Plan (08/31/2024 11:07 AM CDT): Got IV iron infusion since last visit, talked about checking iron again when she is near delivery Assessment & Plan (07/28/2024 5:57 PM CDT): -reviewed results today; ferritin 12 with normal hemoglobin -taking Vitron-C or similar QOD -discussed R/B/A to IV iron; accepts and orders placed today Assessment & Plan (06/22/2024 12:25 PM CDT): -ferritin 25 at NOB -Vitron-C Rx sent today for QOD use; recheck at mid-preg labs Need Vaccine Immunization Varicella 05/17/2024 12/27/2024 Overview (05/17/2024): Varicella non-immune Consider vaccination post- Assessment & Plan (07/28/2024 2:18 PM CDT): -offer post- Urinary Tract Infection 05/16/2024 12/27/2024 Overview (05/16/2024): -diagnosed at outside facility -Rx Keflex on 05/01/24; per patient, she finished antibiotics on 05/10/24 -will wait until next visit and then repeat urine culture as CASS -plan urine cultures each trimester Assessment & Plan (10/19/2024 10:32 AM CDT): -GBS bacteruria >100K on 06/22/24 -Rx Amoxicillin 875 mg BID for 5 days and retest 2 weeks after completion -urine culture 07/28/24 was negative -does NOT need GBS swab at 36 weeks -will plan intrapartum prophylaxis in labor Assessment & Plan (10/05/2024 2:56 PM CDT): -initially diagnosed at outside facility -Rx Keflex on 05/01/24; per patient, she finished antibiotics on 05/10/24 -plan urine cultures each trimester -GBS bacteruria >100K on 06/22/24 -will Rx Amoxicillin 875 mg BID for 5 days and retest 2 weeks after completion -urine culture 07/28/24 was negative -does NOT need GBS swab at 36 weeks -will plan intrapartum prophylaxis in labor Assessment & Plan (07/28/2024 5:57 PM CDT): -initially diagnosed at outside facility -Rx Keflex on 05/01/24; per patient, she finished antibiotics on 05/10/24 -plan urine cultures each trimester -GBS bacteruria >100K on 06/22/24 -will Rx Amoxicillin 875 mg BID for 5 days and retest 2 weeks after completion--ordered today -does NOT need GBS swab at 36 weeks -will plan intrapartum prophylaxis in labor Assessment & Plan (07/28/2024 5:44 PM CDT): -diagnosed at outside facility -Rx Keflex on 05/01/24; per patient, she finished antibiotics on 05/10/24 -urine culture today -plan urine cultures each trimester Assessment & Plan (07/28/2024 2:18 PM CDT): -diagnosed at outside facility -Rx Keflex on 05/01/24; per patient, she finished antibiotics on 05/10/24 -urine culture today -plan urine cultures each trimester Assessment & Plan (05/16/2024 5:38 PM HOME COMPANION): -diagnosed at outside facility -Rx Keflex on 05/01/24; per patient, she finished antibiotics on 05/10/24 -will wait until next visit and then repeat urine culture as CASS -plan urine cultures each trimester Obstetric Disorder Personal History 05/16/2024 12/27/2024 Overview (05/16/2024): -history of shoulder dystocia x 1 with 4350 gram baby; 2 maneuvers, 1 minute long -history of precipitous labors < 3 hours Assessment & Plan (11/01/2024 4:38 PM CDT): -h/o precipitous labor -h/o shoulder dystocia of 4350 g baby Assessment & Plan (10/19/2024 10:32 AM CDT): In the third trimester with a history of fast labor and shoulder dystocia. The fetus is in the 60th percentile for weight, normal for gestational diabetes. Induction of labor is planned for 39 weeks if spontaneous labor does not occur. Advised on changing positions during labor to reduce shoulder dystocia risk. The fetus is cephalic with a heart rate of 131 bpm and normal amniotic fluid volume. Biophysical profile score is perfect. - Schedule induction of labor for November 07, 2024, if spontaneous labor does not occur by 39 weeks. - Advise on changing positions during labor to facilitate delivery and reduce shoulder dystocia risk. - Continue weekly OB visits and monitoring. Assessment & Plan (10/05/2024 5:36 PM CDT): In the third trimester with a history of fast labor and shoulder dystocia. The fetus is in the 60th percentile for weight, normal for gestational diabetes. Induction of labor is planned for 39 weeks if spontaneous labor does not occur. Advised on changing positions during labor to reduce shoulder dystocia risk. The fetus is cephalic with a heart rate of 131 bpm and normal amniotic fluid volume. Biophysical profile score is perfect. - Schedule induction of labor for November 07, 2024, if spontaneous labor does not occur by 39 weeks. - Advise on changing positions during labor to facilitate delivery and reduce shoulder dystocia risk. - Continue weekly OB visits and monitoring. Assessment & Plan (05/16/2024 5:38 PM HOME COMPANION): -history of shoulder dystocia x 1 with 4350 gram baby; 2 maneuvers, 1 minute long -history of precipitous labors < 3 hours Stress 03/27/2024 05/16/2024 Overview (05/16/2024): children in Foster Care: CPS involvement. COVID-19 Infection 12/05/2021 38 Weeks Gestation 12/03/2021 12/03/2021 Delivery Vaginal Normal Spontaneous 11/30/2021 05/16/2024 Overview (12/02/2021): The patient was admitted to the [facility][1] for spontaneous onset of labor. Her was [...] floor. She received her care within the [facility]. Complication Morbid Obesity Body Mass Index Greater Than 40 11/28/2021 05/16/2024 High Risk 11/28/2021 12/28/19 25 Overview (07/28/2024): Recommendations: : Routine: Continue care with complex care, next 07/28 Shared care with [facility], next around 32w for delivery planning, scheduled 09/13 Genetics: Declined NIPT offered today; no structural anomalies noted on ultrasound History of vertebral artery dissection: Records have been requested and are scanned in the media tab from [facility] Aspirin 81 mg daily until delivery, will initiate BP goal <140/90, likely <130/80 No additional APT/anticoagulation Neurology consultation placed Vascular medicine consultation placed Baseline HELLP labs: CBC, CMP complete; urine protein:creatine ratio (24h if greater than/= 0.15) OB anesthesia consultation 32w Suspicion for IIH Neurology consultation as above Continue optometry/ophthalmology follow-up Concern for cervical insufficiency May consider additional cervical length prior to 23w5d Placenta previa Repeat transvaginal ultrasound 28-32 weeks surveillance: Serial growth ultrasound q3-4w in the third trimester Weekly surveillance (NST or BPP) at 34w; earlier as indicated Delivery: Location: [place] Timing: Per routine obstetric indication, elective risk reducing 39-40w if not indicated earlier Mode: Per routine indication, no contraindication to vaginal from vertebral artery dissection standpoint at this time Assessment & Plan (11/01/2024 4:38 PM CDT): 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 Patient reports this happened when walking through [employer]; no trauma or precipitating event. -this reportedly caused cerebellar strokes or TIA -she did see Optho for assessment of papilledema and possible IIH -normotensive in clinic today - growth: EFW 2542 g (5 lb 10 oz) 62%, AC 80% at 34 weeks (10/05/24) [facility] Recommendations: : Routine: Continue care with complex care, next 07/28 Shared care with [facility], next around 32w for delivery planning, scheduled 09/13 Genetics: Declined NIPT offered today; no structural anomalies noted on ultrasound History of vertebral artery dissection: Records have been requested and are scanned in the media tab from [facility] Aspirin 81 mg daily until delivery, will initiate BP goal <140/90, likely <130/80 No additional APT/anticoagulation Neurology consultation placed; completed on 07/25/24 Vascular medicine consultation placed Baseline HELLP labs: CBC, CMP complete; urine protein:creatine ratio (24h if greater than/= 0.15) OB anesthesia consultation 32w Suspicion for IIH Neurology consultation as above Continue optometry/ophthalmology follow-up Concern for cervical insufficiency May consider additional cervical length prior to 23w5d Placenta previa Repeat transvaginal ultrasound 28-32 weeks surveillance: Serial growth ultrasound q3-4w in the third trimester Weekly surveillance (NST or BPP) at 34w; earlier as indicated Delivery: Location: [place] Timing: Per routine obstetric indication, elective risk reducing 39-40w if not indicated earlier Mode: Per routine indication, no contraindication to vaginal from vertebral artery dissection standpoint at this time Assessment & Plan (10/19/2024 10:32 AM CDT): 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 Patient reports this happened when walking through [employer]; no trauma or precipitating event. -this reportedly caused cerebellar strokes or TIA -follow up is unclear; she did see Optho for assessment of papilledema and possible IIH -normotensive in clinic today - growth: EFW 2542 g (5 lb 10 oz) 62%, AC 80% at 34 weeks (10/05/24) [facility] Recommendations: : Routine: Continue care with complex care, next 07/28 Shared care with [facility], next around 32w for delivery planning, scheduled 09/13 Genetics: Declined NIPT offered today; no structural anomalies noted on ultrasound History of vertebral artery dissection: Records have been requested and are scanned in the media tab from [facility] Aspirin 81 mg daily until delivery, will initiate BP goal <140/90, likely <130/80 No additional APT/anticoagulation Neurology consultation placed; completed on 07/25/24 Vascular medicine consultation placed Baseline HELLP labs: CBC, CMP complete; urine protein:creatine ratio (24h if greater than/= 0.15) OB anesthesia consultation 32w Suspicion for IIH Neurology consultation as above Continue optometry/ophthalmology follow-up Concern for cervical insufficiency May consider additional cervical length prior to 23w5d Placenta previa Repeat transvaginal ultrasound 28-32 weeks surveillance: Serial growth ultrasound q3-4w in the third trimester Weekly surveillance (NST or BPP) at 34w; earlier as indicated Delivery: Location: [place] Timing: Per routine obstetric indication, elective risk reducing 39-40w if not indicated earlier Mode: Per routine indication, no contraindication to vaginal from vertebral artery dissection standpoint at this time Assessment & Plan (10/05/2024 2:56 PM CDT): 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 Patient reports this happened when walking through [employer]; no trauma or precipitating event. -this reportedly caused cerebellar strokes or TIA -follow up is unclear; she did see Optho for assessment of papilledema and possible IIH -normotensive in clinic today [facility] Recommendations: : Routine: Continue care with complex care, next 07/28 Shared care with [facility], next around 32w for delivery planning, scheduled 09/13 Genetics: Declined NIPT offered today; no structural anomalies noted on ultrasound History of vertebral artery dissection: Records have been requested and are scanned in the media tab from [facility] Aspirin 81 mg daily until delivery, will initiate BP goal <140/90, likely <130/80 No additional APT/anticoagulation Neurology consultation placed; completed on 07/25/24 Vascular medicine consultation placed Baseline HELLP labs: CBC, CMP complete; urine protein:creatine ratio (24h if greater than/= 0.15) OB anesthesia consultation 32w Suspicion for IIH Neurology consultation as above Continue optometry/ophthalmology follow-up Concern for cervical insufficiency May consider additional cervical length prior to 23w5d Placenta previa Repeat transvaginal ultrasound 28-32 weeks surveillance: Serial growth ultrasound q3-4w in the third trimester Weekly surveillance (NST or BPP) at 34w; earlier as indicated Delivery: Location: [place] Timing: Per routine obstetric indication, elective risk reducing 39-40w if not indicated earlier Mode: Per routine indication, no contraindication to vaginal from vertebral artery dissection standpoint at this time Assessment & Plan (08/31/2024 11:18 AM CDT): Talked about drinking water, tylenol, and lidocaine patches or gel for back pain if uncomfortable. Assessment & Plan (07/28/2024 5:57 PM CDT): 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 Patient reports this happened when walking through [employer]; no trauma or precipitating event. -this reportedly caused cerebellar strokes or TIA -follow up is unclear; she did see Optho for assessment of papilledema and possible IIH -normotensive in clinic today [facility] Recommendations: : Routine: Continue care with complex care, next 07/28 Shared care with [facility], next around 32w for delivery planning, scheduled 09/13 Genetics: Declined NIPT offered today; no structural anomalies noted on ultrasound History of vertebral artery dissection: Records have been requested and are scanned in the media tab from [facility] Aspirin 81 mg daily until delivery, will initiate BP goal <140/90, likely <130/80 No additional APT/anticoagulation Neurology consultation placed; completed on 07/25/24 Vascular medicine consultation placed Baseline HELLP labs: CBC, CMP complete; urine protein:creatine ratio (24h if greater than/= 0.15) OB anesthesia consultation 32w Suspicion for IIH Neurology consultation as above Continue optometry/ophthalmology follow-up Concern for cervical insufficiency May consider additional cervical length prior to 23w5d Placenta previa Repeat transvaginal ultrasound 28-32 weeks surveillance: Serial growth ultrasound q3-4w in the third trimester Weekly surveillance (NST or BPP) at 34w; earlier as indicated Delivery: Location: [place] Timing: Per routine obstetric indication, elective risk reducing 39-40w if not indicated earlier Mode: Per routine indication, no contraindication to vaginal from vertebral artery dissection standpoint at this time Assessment & Plan (07/28/2024 2:18 PM CDT): -declines genetic screening -first trimester anatomy US today with normal, but limited, findings -advanced anatomy US today, normal findings -initial OB labs reviewed -new and mid teaching with RN complete Assessment & Plan (05/16/2024 5:38 PM HOME COMPANION): -declines genetic screening -first trimester anatomy US today with normal, but limited, findings -initial OB labs today -new teaching with RN complete Maternal Care For Disproport ion Due To Unusually Large Fetus Single Gestation 09/16/2021 0 05/16/2024 Overview (11/24/2021): Ultrasound on 09/09/2021 showed growth at the 98th percentile. US 10/18: EFW is 2567 g with growth at the 98th percentile; transverse presentation Growth US scheduled with [facility] on 11/28/2021. She will return later today to recheck position with US and for NST. Abnormal Ultrasound 08/26/2021 05/16/2024 Overview (11/24/2021): Transverse presentation noted on last US. US [...] returned normal. Marginal cord insertion also noted. Cyst Ovarian 08/07/202105/16 Overview (10/26/2021): 11 cm, simple. Will monitor at the time of growth ultrasounds and . Stable on US on 09/09/2021, not visualized on US on 10/21/2021. She is aware of symptoms of torsion and the need to present to the emergency department if she has these. Heartburn 07/29/2021 05/16/2024 Overview (09/16/2021): Managed currently with Chad camara, and she will let us know if this is not working well enough for her. Care And Lactating 05/12/2021 05/16/2024 Overview (10/26/2021): OB education complete. Nausea And Vomiting 05/12/2021 10/22/19 Overview (08/26/2021): This has resolved. Recommend restarting vitamins. Need Vaccine Immunization Varicella 04/24/2021 08/26/2021 Overview (05/12/2021): Varicella serology negative. She reports history of immunization and varicella x 2 post vaccination, so she would not need varicella vaccination after delivery. Positive Group B Streptococcus 04/24/2021 05/16/2024 Overview (07/29/2021): Bacteriuria on initial urine culture in . Plan antibiotics in labor. GBS testing not necessary at 36 weeks. Repeat urine culture on 07/23/2021 was negative. Deficiency Vitamin D 09/10/2017 025 Prior Premature Rupt ure Membrane Personal History 08/20/2017 12/27/2024 Overview (05/16/2024): - Her first delivery was at 18 weeks after PPROM - the second was at 36 weeks, and the third at 38 weeks. She did not use Lucille or cerclage with her 2nd or 3rd . Assessment & Plan (10/19/2024 10:32 AM CDT): - Her first delivery was at 18 weeks after PPROM - the second was at 36 weeks, and the third at 38 weeks. She did not use Lucille or cerclage with her 2nd or 3rd . Assessment & Plan (10/05/2024 2:56 PM CDT): - Her first delivery was at 18 weeks after PPROM - the second was at 36 weeks, and the third at 38 weeks. She did not use Lucille or cerclage with her 2nd or 3rd . Assessment & Plan (07/28/2024 5:57 PM CDT): - Her first delivery was at 18 weeks after PPROM - the second was at 36 weeks, and the third at 38 weeks. She did not use Lucille or cerclage with her 2nd or 3rd . Assessment & Plan (06/22/2024 9:03 AM CDT): - Her first delivery was at 18 weeks after PPROM - the second was at 36 weeks, and the third at 38 weeks. She did not use [place] or cerclage with her 2nd or 3rd . Assessment & Plan (05/16/2024 5:38 PM HOME COMPANION): - Her first delivery was at 18 weeks after PPROM - the second was at 36 weeks, and the third at 38 weeks. She did not use Lucille or cerclage with her 2nd or 3rd . Incompetent Cervix 12/31/2014 2 Encounters Date Type Department Care Team Description 01/13/2025 Clinical Communication [facility], Third Floor [address] [place] [address] Vanessa Villanueva R.N. Menorrhagia 12/27/2024 1:28 PM CDT - 12/27/2024 11:59 PM CDT Hospital Encounter Department of Obstetrics and Gynecology in [place], [place] [address] [place] [address] Yuliana Moore M.D. Bleeding Vaginal Discharge Disposition: Home or Self Care 12/27/2024 11:00 AM CDT Visit Department of Obstetrics and Gynecology in [place], [place] [address] [place] [address] Estrella Vera CNM Migraine Headache (Primary Dx); Exam (HCC) 12/27/2024 10:00 AM CDT Comprehensive Visit Department of Obstetrics and Gynecology in [place], [place] [address] [place] [address] Malini Logan M.D. Jovita Ochoa M.S., O.T. Weakness Muscle (Primary Dx); Care And Lactating 12/05/2024 11:30 AM CDT Visit Department of Obstetrics and Gynecology in [place], [place] [address] [place] [address] Yuliana Moore M.D. Bleeding Vaginal (Primary Dx); Migraine Headache; Depression Anxiety; Depression ; Care And Lactating 11/29/2024 Clinical Communication Department of Neurology in [place], [place] [address] [place] [address] Reilly Mejia M.D. 11/29/2024 Clinical Communication [facility], Third Floor [address] [place] [address] Ольга Godwin M.D. 11/29/2024 Orders Only Department of Obstetrics and Gynecology in [place], [place] [address] [place] [address] Cydney Don M.D. 11/28/2024 8:52 PM CDT - 11/28/2024 11:44 PM CDT Hospital Encounter [facility], Third Floor [address] [place] [address] Rylie Henderson M.D. 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 Dizziness (At 3 weeks PP, she is using 3-4 pads/ day of bright red bleeding. She noted a golf ball size clot. ) 11/21/2024 11:00 AM CDT Telemedicine Department of Obstetrics and Gynecology in [place], [place] [address] [place] [address] Estrella Vera CNM Care And Lactating (Primary Dx); Exam (HCC) 11/20/2024 Results Follow-Up Department of Obstetrics and Gynecology in [place], [place] [address] [place] [address] Rylie Henderson M.D. Surgical Pathology 11/10/2024 Ancillary Procedure Department of Laboratory Medicine 11/09/2024 Clinical Communication [facility], Third Floor [address] [place] [address] Malini Logan M.D. 11/08/2024 3:05 AM CDT Anesthesia Event [facility], Third Floor [address] [place] [address] Janet Fung M.D. Kike Lorenzana, [employer]BI[employer]HICLE OPERATOR, [facility] 11/07/2024 11:59 PM CDT Anesthesia Event [facility] [facility], Third Floor [address] [place] [address] Zachery Mcdaniel M.D. 11/07/2024 2:52 PM CDT - 11/10/2024 4:00 PM CDT Hospital Encounter [facility], Third Floor [address] [place] [address] Hans Walls M.D., Ph.D. Care And Lactating (Primary Dx); High Risk (HCC); Vertebro Basilar Artery Syndrome; Diabetes Mellitus Gestational (HCC); Diabetes Mellitus Gestational Insulin Controlled (HCC) Discharge Disposition: Home or Self Care 11/06/2024 Orders Only Department of Obstetrics and Gynecology in [place], [place] [address] [place] [address] Fidencio Squires M.D., M.P.H. Diabetes Mellitus Gestational Insulin Controlled (HCC) (Primary Dx) 11/05/2024 10:30 PM CDT - 11/05/2024 11:56 PM CDT Hospital Encounter [facility] [place] [facility], [facility], [facility], Third Floor [address] [place] [id number] Rylie Henderson M.D. 38 Weeks Gestation (HCC) [Z3A.38] (Primary Dx) Discharge Disposition: Home or Self Care 11/01/2024 2:00 PM CDT Routine Department of Obstetrics and Gynecology in [place], [place] [address] [place] [address] Estrella Vera CNM High Risk (HCC) (Primary Dx); Vertebro Basilar Artery Syndrome; Body Mass Index 45.0 To 49.9 Adult (HCC); Diabetes Mellitus Gestational Insulin Controlled (HCC); Deficiency Iron; Thrombocytopenia (HCC); Obstetric Disorder Personal History; Type O Blood Rhesus Negative; Positive Group B Streptococcus (HCC); Herpes Genitalis; Depression Anxiety 11/01/2024 11:09 AM CDT - 11/01/2024 11:59 PM CDT Hospital Encounter Department of Obstetrics and Gynecology in [place], [place] [address] [place] [address] Estrella Vera CNM High Risk (HCC); Vertebro Basilar Artery Syndrome; Diabetes Mellitus Gestational (HCC) Discharge Disposition: Home or Self Care 10/26/2024 2:30 PM CDT Comprehensive Visit Department of Physical Medicine and Rehabilitation in [place], [place] [address] [place] [address] Estrella Vera CNM Le Fevre, Eleanor F, M.S., O.T. High Risk (HCC); Vertebro Basilar Artery Syndrome; Diabetes Mellitus Gestational (HCC) 10/26/2024 1:15 PM CDT Routine Department of Obstetrics and Gynecology in [place], [place] [address] [place] [address] Estrella Vera CNM Aschoff, Jennifer J, R.N. High Risk (HCC) (Primary Dx) 10/26/2024 10:55 AM CDT - 10/26/2024 11:59 PM CDT Hospital Encounter Department of Obstetrics and Gynecology in [place], [place] [address] [place] [address] Estrella Vera CNM High Risk (HCC); Vertebro Basilar Artery Syndrome; Diabetes Mellitus Gestational (HCC) Discharge Disposition: Home or Self Care 10/19/2024 10:30 AM CDT Routine Department of Obstetrics and Gynecology in [place], [place] [address] [place] [address] Estrella Vera CNM High Risk (HCC) (Primary Dx); Vertebro Basilar Artery Syndrome; Body Mass Index 45.0 To 49.9 Adult (HCC); Complete Placenta Previa Without Hemorrhage Second Trimester (HCC); Deficiency Iron; Depression Anxiety; Diabetes Mellitus Gestational Insulin Controlled (HCC); With Personal History Gestational Diabetes Mellitus (HCC); Headache (HCC); Herpes Genitalis; Obstetric Disorder Personal History; Positive Group B Streptococcus (HCC); Prior Premature Rupture Membrane Personal History (HCC); Thrombocytopenia (HCC); Trichomonas Urogenital; Type O Blood Rhesus Negative; Urinary Tract Infection (HCC) 10/19/2024 8:55 AM CDT - 10/19/2024 11:59 PM CDT Hospital Encounter Department of Obstetrics and Gynecology in [place], [place] [address] [place] [address] Estrella Vera CNM High Risk (HCC); Diabetes Mellitus Gestational (HCC) Discharge Disposition: Home or Self Care from Last 3 Months Immunizations Immunization Administration Dates Next Due 4vHPV (discontinued) 01/07/2011,10/19/2007,08/02 DTP 07/09/1994, 4,1993,1993 HepB Pediatric/Adolescent 1993,1993, 1993 Hib (PRP-OMP) (PedvaxHIB) 07/09/1994,,1993,1993 Influenza, Injectable, Quadrivalent 03/13/2014 Influenza, Unspecified 05/12/2021(Deferr ed: Other - has never had it before and does not want it.),01/25/2018(Deferred: Other) MMR 07/09/1994 OPV, Trivalent 1993,1993,1993 Rho (D) Immune Globulin (IM only) 2024,09/27/2024,12/03/2021,2021,04/22/2021,01/25/2018,02/26/2015,0 05/03/2014 Tdap 09/13/2024, 8,03/30/2015,2010 JENNIFER 11/10/2024,12/03/2021 influenza vaccine quad (FLUZONE/FLUARIX) (6 months and older)(PF) 03/13/2014 Family History Medical History Relation Name Comments ADD / ADHD Daughter Allergies Daughter Oppositional defiant disorder (ODD) Daughter No Known Problems Father Colon cancer Father's Sister Alzheimer's disease Maternal Grandfather Diabetes Maternal Grandfather Diabetes Maternal Grandmother Leukemia Maternal Grandmother Asthma Mother Retinal tear Mother possible Sleep apnea Mother Sleep apnea Mother's Brother 1 Sleep apnea Mother's Brother 2 Sleep apnea Mother's Brother 3 Chorioamnionitis Second Trimester Single Gestation (HCC) Other 1 Martinez's esophagus Other 2 Prudencio Hernia Other 2 Prudencio Diabetes Paternal Grandfather Breast cancer (in one breast) Paternal Grandmother Diabetes Paternal Grandmother ADD / ADHD Sister 1 Anger Sister 1 Asthma Sister 1 Autism spectrum disorder Sister 1 mil d, mostly sensory/social issues. Bipolar disorder Sister 1 Diabetes Sister 1 Anxiety disorder Son 1 ERICH MOORE Learning disabilities Son 1 Chadwick MOORE Pyloric stenosis Son 2 SEUN MOORE Relation Name Status Comments Child Seun Moore Alive Daughter Alive Father (Age 50-55) limited infosmokerpossible bipolar disorder Father's Sister Maternal Grandfather Alive Maternal Grandmother (Age 60) Mother Alive Mother's Brother 1 Alive Mother's Brother 2 Alive Mother's Brother 3 Alive Other 1 Fetus - Spontane ous Other 2 Prudencio Alive Paternal Grandfather Alive Paternal Grandmother Sister 1 Sister 2 1 sister Alive Son 1 ERICH MOORE Alive Son 2 OSCARSEUN APRIL Alive Social History Tobacco Use Types Packs/Day Years [...] things needed for daily living? No 11/07/2024 [facility] Utilities Answer Date Recorded In the past 12 months has [facility] electric, gas, oil, or water company threatened to shut off services in your home? No 11/07/2024 Depression Answer Date Recor ded PHQ-9 Total Score (max 27) 7 12/27 Housing Stability Answer Date Recorded What is your living situation today? I have a [facility] place to live 11/07/2024 Education Answer Date Recorded What is the highest level of school you have completed or the highest degree you have received? 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 Not on file Not on file Last Filed Vital Signs Vital Sign Reading Time Taken Comments Blood Pressure 109/70 12/27/2024 11:10 AM CDT Pulse 65 12/27/2024 11:10 AM CDT Temperature 36.8 C (98.2 F) 12/27/2024 11:10 AM CDT Respiratory Rate 16 11/10/2024 2:15 PM CDT Oxygen Saturation 98% 12/27/2024 11:10 AM CDT Inhaled Oxygen Concentration - - Weight 135 kg (298 lb 1 oz) 12/27/2024 11:10 AM CDT Height 165.8 cm (5' 5.28) 11/07/2024 3:25 PM CD T Body Mass Index 49.18 11/07/2024 3:25 PM CDT Plan of Treatment Upcoming Encounters Date Type Department Care Team (Latest Contact Info) Description 01/26/2025 3:00 PM HOME COMPANION Clinical Communication Virtual Review in [address] [address] Health Maintenance Due Date Last Done Comments IPV Vaccines (4 of 4 - 4-dose series) 1997 1993, 1993, 1993 COVID-19 Vaccine ( - season) 2024 05/01/2020, 04/04/2020 Influenza Vaccine (#1) 2024 03/13/2014, 2013 Cervical/Vaginal Cancer Screening 05/16/2029 05/16/2024, 05/16/2024, 05/12/2021, Additional history exists DTaP,Tdap,and Td Vaccines (9 - Td or Tdap) 09/13/2034 09/13/2024, 01/25/2018, 03/30/2015, Additional history exists Hepatitis B Vaccines Completed 1993, 1993, 1993 HPV Vaccines Completed 01/07/2011, 08/2007, 08/03/2007 HIV Screening Completed 05/16/2024, 10/2021, 08/20/2017, Additional history exists Hepatitis C Screening Completed 05/16/2024, 022 Varicella Vaccines Completed 11/10/2024, 12/03/2021 Depression Screening (Annual PHQ-2) Completed 12/27/2024, 12/05/2024 Pneumococcal vaccine (0-49 years) Aged Out No longer eligible based on patient's age to complete this topic Procedures Procedure Name Priority Date/Time Associated Diagnosis Comments US OB TRANSVAGINAL RAD - Routine (most inpatients and all outpatients) 12/27/2024 2:52 PM CDT Bleeding Vaginal GLUCOSE, FASTING, S/P Routine 12/27/2024 12:38 PM CDT Care And Lactating CBC WITHOUT DIFFERENTIAL, B Routine 12/27/2024 12:38 PM CDT Bleeding Vaginal US OB LIMITED RAD - Routine (most inpatients and all outpatients) 11/28/2024 11:39 PM CDT ANTIBODY IDENTIFICATION Routine 11/28/2024 10:06 PM CDT TYPE AND SCREEN Routine 11/28/2024 10:06 PM CDT CBC WITHOUT DIFFERENTIAL, B STAT 11/28/2024 10:06 PM CDT PATHOLOGY IMAGE EXAM Routine 11/10/2024 12:00 AM CDT GLUCOSE POCT, B Routine 11/09/2024 9:12 AM CDT CBC WITHOUT DIFFERENTIAL, B STAT 11/08/2024 6:34 PM CDT RHIG VELIA, B Routine 11/08/2024 10:31 AM CDT SURGICAL PATHOLOGY Routine 11/08/2024 7: 13 AM CDT GLUCOSE POCT, B Routine 11/08/2024 5:22 AM CDT GLUCOSE POCT, B Routine 11/08/2024 4:11 AM CDT ANESTHESIA REGIONAL BLOCK Routine 11/08/2024 3:11 AM CDT GLUCOSE POCT, B Routine 11/07/2024 6:59 PM CDT ANTIBODY IDENTIFICATION Routine 11/07/2024 3:36 PM CDT TYPE AND SCREEN Routine 11/07/2024 3:36 PM CDT CBC WITHOUT DIFFERENTIAL, B Routine 11/07/2024 3:36 PM CDT GLUCOSE, RANDOM, S/P Routine 11/07/2024 3:36 PM CDT SYPHILIS IGG W/ REFLEX, EIA, S Routine 11/07/2024 3:36 PM CDT GLUCOSE POCT, B Routine 11/07/2024 3:35 PM CDT LABOR INDUCTION Routine 11/07/2024 2:52 PM CDT High Risk (HCC) Vertebro Basilar Artery Syndrome Diabetes Mellitus Gestational (HCC) NONSTRESS TEST - CONWAY Routine 11/05/2024 11:41 PM CDT US OB BIOPHYSICAL PROFILE WITHOUT NON-STRESS CONWAY RAD - Routine (most inpatients and all outpatients) 11/01/2024 11:45 AM CDT High Risk (HCC) Vertebro Basilar Artery Syndrome Diabetes Mellitus Gestational (HCC) US OB BIOPHYSICAL PROFILE WITHOUT NON-STRESS CONWAY RAD - Routine (most inpatients and all outpatients) 10/26/2024 11:17 AM CDT High Risk (HCC) Vertebro Basilar Artery Syndrome Diabetes Mellitus Gestational (HCC) CBC WITHOUT DIFFERENTIAL, B Routine 10/26/2024 10:52 AM CDT High Risk (HCC) Vertebro Basilar Artery Syndrome Diabetes Mellitus Gestational (HCC) FERRITIN, S Routine 10/26/2024 10:51 AM CDT High Risk (HCC) Vertebro Basilar Artery Syndrome Diabetes Mellitus Gestational (HCC) US OB LIMITED AND BPP WITHOUT NON STRESS RAD - Routine (most inpatients and all outpatients) 10/19/2024 9:30 AM CDT High Risk (HCC) Diabetes Mellitus Gestational (HCC) HCV AB SCRN , S Routine 05/16/2024 4:25 PM HOME COMPANION High Risk (HCC) HIV-1/-2 AG AND AB SCRN, PLASMA Routine 05/16/2024 4:25 PM HOME COMPANION High Risk (HCC) HPV WITH GENOTYPING, PCR, THINPREP Routine 05/16/2024 3:52 PM HOME COMPANION from Last 3 Months or Most Recently Relevant to Health Maintenance Results * US OB Transvaginal (12/27/2024 2:52 [...] 8.7 cm x 5.4 cm. Vol 213.7 security systems manager? 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 Vol 213.7 security systems manager? Position: retroverted Endometrial thickness, total 0.9 mm [...] the right ovary. us Yuliana Mckenzie M.D. IMG OB US PROCEDURES Final Result * (ABNORMAL) CBC without Differential (12/27/2024 12:38 PM CDT) Only the most recent of5 resultswithin the time period is included. Hemoglobin 13.1 11.6 - 15.0 g/dL 12/27/2024 [...] 12:38 PM CDT 12/27/2024 1:03 PM CDT us Yuliana Mckenzie M.D. LAB BLOOD ADD-ON Maria Luisa l Result [facility] [address] [facility] [address] [place] [address] * (ABNORMAL) Glucose, Fasting (12/27/2024 12:38 PM CDT) Glucose, P 111(H) 70 - 100 mg/dL 12/27/2024 1:27 PM CDT DTL Last Intake 4 hr 12/27/2024 12:52 PM CDT DTL Blood (Blood, Venous) 12/27/2024 12:38 PM CDT 12/27/2024 12:52 PM CDT us Estrella GARY LAB BLOOD NON ADD-ON Final Result Performing Organization Address City/[facility]/ZIP Co de Phone Number [facility] [address] [place] [address], [facility] DTL [facility] [address] [place] [address] * US OB Limited (11/28/2024 11:39 PM CDT) Anatomical Region Laterality Modality Ultrasound OB RST LOS, Ultra sound ARZ LOS, Ultrasound FLA LOS, Ultrasound ARZ LOS N/A Ultrasound Narrative 11/28/2024 11:39 PM CDT Hypoechoic area within the lower uterine segment without blood flow, consistent with clot us Jd Corrales M.D. IMG OB US PROCEDURES Final Result * Antibody Identification, Erythrocytes (11/28/2024 10:06 PM CDT) Only the most recent of2 resultswithin the time period is included. Antibody Identification Passively acquired 11/28/2024 11:44 PM CDT DTL Comment:anti-D 11/28/2024 10:0 6 PM CDT 11/28/2024 10:13 PM CDT Narrative [facility] - 11/28/2024 11:44 PM CDT Specimen Information: Specimen ID: [id number] Specimen Collection Start Date: 11/28/2024 10:06 PM Specimen Received Date: 11/28/2024 10:13 PM Specimen ID: [id number] Specimen Collection Start Date: 11/28/2024 10:06 PM Specimen Received Date: 11/28/2024 10:13 PM us Nelida Howard M.D. LAB BLOOD BANK TEST OR DERABLES Final Result [facility] [address] [place] [address], [facility] DTL [facility] [address] [place] [address] * Type and Screen (with Reflex Antibody ID) (11/28/2024 10:06 PM CDT) Only the most recent of2 resultswithin the time period is included. ABORh O Neg Not applicable 11/28/2024 11:28 PM CDT [facility] Antibody Screen CANCELED 11:14 PM CDT [facility] Comment: See antibody identification test. Result canceled by the ancillary. Type & Screen Expiration 12/01/2024 23:59 11/28/2024 11:28 PM CDT ETRM Testing Location [place] DEFAULT 11/28/2024 10:13 PM CDT ETRM Blood (Blood, Venous) 11/28/2024 10:06 PM CDT 11/28/2024 10:13 PM CDT us Nelida Howard M.D. LAB BLOOD BANK TEST OR DERABLES Final Result Performing Organization Address [facility] Co de Phone Number [facility] [address] [place] [address], [place] ETRM [facility] [address] [place] [address] * Specimen-Pathology Image Exam (11/10/2024 12:00 AM CDT) Narrative [facility] - 11/10/2024 3:40 PM CDT This order has been created and auto-finalized to support the import of images acquired without order. The clinical documentation to support these images can be found on the encounter that produced images. us Provider Not In System IMG NON RAD IMAGING PROCE DURES Final Result Performing Organization Address [facility] de Phone Number [facility] NA * Glucose, POCT (11/09/2024 9:12 AM CDT) Only the most recent of5 resultswithin the time period is included. Glucose, POCT, B 103 70 - 140 mg/dL 11/09/2024 9:19 AM CDT PCDE Site Capillary 11/09/2024 9:19 AM CDT PCDE Last Intake > 4 hours 11/09/2024 9:19 AM CDT PCDE Blood 11/09/2024 9:12 AM CDT 11/09/2024 9:19 AM CDT us Unknown Provider LAB POCT ORDERABLES-MANUAL Maria Luisa l Result Performing Organization Address City/[facility]/ZIP Co de Phone Number [facility] [address] [place] [address], [facility] PCDE [facility] [address] [place] [address] * RhIG Velia (11/08/2024 10:31 AM CDT) RhIG Velia Negative Negative 11/08/2024 11:46 AM CDT DTL Blood (Blood, Venous) 11/08/2024 10:31 AM CDT 11/08/2024 11:03 AM CDT Fidencio Squires M.D., M.P.H. LAB BLOOD BANK TEST OR DERABLES Final Result [facility] [address] [place] [address], [facility] DTL [facility] [address] [place] [address] * Surgical Pathology (11/08/2024 7:13 AM CDT) 11/19/2024 9:21 AM CDT DTL Report electronically signed by Ciro [place] M.D. I verify that I have examined all relevant slides/materials for the specimen(s) and rendered or confirmed the diagnosis. 11/19/2024 9:21 AM CDT DTL Gross Description A. Received fresh labeled with the patient's name, medical record number and designated as placenta is a conway placenta: Disc Condition: Fixed and intact Trimmed weight: 489 g Three dimensions: 18.5 x 16.2 x 2.5 cm Shape: Ovoid Umbilical Cord Length: 49 cm Diameter: 1.2 cm Number of vessels: 3 Appearance: Unremarkable, vessels intact, and shows normal coiling Cord insertion: Eccentric Surface Color: Blue-perez Intact vessels: No, associated with a 9.1 x 5.2 cm subamniotic hemorrhage, extending from the umbilical cord to the periphery Membranes Color: Phillips Transparency: Transparent Consistency: Normal Membrane insertion: Marginal Maternal Surface Condition: Focally disrupted and incomplete over a 4.5 x 3.5 cm area Other. No retroplacental hematoma is grossly identified Placental Parenchyma Thickness: 2.5 cm Sectioning the disc reveals: Multiple (4) phillips-red laminated indurations, 0.9-1.5 cm, which involve < 1% of the placental parenchyma Bread Jockey sections are submitted as follows: A1-Umbilical cord and membranes A2-Placenta, adjacent to umbilical cord insertion site [id number], central A5-Lesions (2) A6-Lesions (2) A7-Disrupted maternal surface Photographed. Grossed by [facility]. 11/19/2024 9:21 AM CDT DTL Interpretation FINAL DIAGNOSIS A. Conway placenta: 489 g, appropriate for gestational age of 39 weeks. Umbilical cord - No abnormalities Extraplacental membranes - Pigmented macrophages consistent with meconium Chorionic plate - Pigmented macrophages consistent with meconium Intervillous space - Intervillous thrombus, multiple (4), involving less than 1% of the placental parenchyma Stem and terminal villi - Low-grade chronic villitis, focal, involving less than 1% of the placental parenchyma Decidua - Decidual arteriopathy: mural hypertrophy - Basal plate myometrial fibers without intervening decidua Digital imaging was used in the diagnostic assessment of this case. 11/19/2024 9:21 AM CDT DTL Tissue 11/08/2024 7:13 AM CDT 11/09/2024 8:55 AM CDT us Rylie Henderson M.D. LAB SURG PATH ORDERABLES Fi nal Result [facility] [address] [place] [address], [facility] DTL [address] [place] [address] * LDA ANE EPIDURAL CATHETER (11/08/2024 3:11 AM CDT) Narrative Janet Fung M.D. - 11/08/2024 3:11 AM CDT Janet Fung M.D. 11/08/2024 6:25 AM Regional Block Date/Time: 11/08/2024 3:11 AM Performed by: Brent Townsend M.D. Authorized by: Janet Fung M.D. Location: labor room PROCEDURE DETAILS: Block Indication: OB block Block Type - Neuraxial: combined spinal and epidural Positioning: sitting Approach: midline Level inserted: L4-5 Block technique: landmark technique Injection technique: catheter Epidural space identification technique: loss of resistance - fluid Loss of resistance depth: 9 Needle type: tuohy Gauge: 17G Length: 10 Needle type spinal: patricia Needle gauge - spinal: 25G Needle length- spinal (cm): 12.7 CSF for CSE: CSF with spinal needle Catheter taped (cm at skin): 15 Test dose: yes- negative test dose Pain with needle advancement or injection of local anesthetic: no Injected Medications: Injection(s), anesthetic agent(s) and/or steroid; See MAR Comments: Comments: R/b/a discussed, patient agrees to have an epidural catheter placement. Local infiltration of skin, needle advancement without paresthesias, excellent Tuan to NS. Spinal needle advanced, dural puncture was smooth, clear CSF drained. CSE solution injected after aspiration of CSF and swirl observed in the syringe, aspiration confirmed at the end of the injection. Spinal needle withdrawn. Catheter advanced without resistance nor paresthesias, negative aspiration for heme or CSF. Patient tolerated the procedure well, all questions answered. UNIVERSAL PROTOCOL All relevant documentation and testing were reviewed and available. All required blood products, implants, devices and or special equipment were made available as applicable. Pre-procedure verification was conducted and the correct site was marked if required. A fire risk and smoke assessment were done as applicable. The procedural time-out to verify correct patient, correct side/site, and procedure was conducted prior to performing the procedure and confirmed in a procedural pause. PRE-PROCEDURE DETAILS: Appropriate hand hygiene, gown, cap, mask, protective eyewear, sterile gloves, skin preparation, sterile drape, and strict aseptic technique were utilized as applicable for the procedure.: yes Skin prep: chlorhexidine / alcohol SEDATION / ANESTHESIA Anesthesia method: local infiltration POST-PROCEDURE DETAILS: Procedure completed successfully: successful procedure Notable Events: none ATTESTATION STATEMENT A resident or fellow participated in the procedure, and the retail consultant was present for the entire procedure. us Janet Fung M.D. PROCEDURE/MINOR SURGICA L ORDERABLES Final Result * Syphilis IgG w/ Reflex, EIA, S (RST/FLA) (11/07/2024 3:36 PM CDT) Pathologist [facility] Syphilis IgG w/ Reflex, EIA, S Nonreactive Nonreactive 11/08/2024 2:23 PM CDT [facility] Comment: No serologic evidence of infection with T. pallidum (syphilis). Repeat testing may be considered in patients with suspected acute or primary syphilis in 2-4 weeks. For additional information on interpretation of the syphilis reverse algorithm and results, see: [email or web address] Blood (Blood, Venous) 11/07/2024 3:36 PM CDT 11/07/2024 6:18 PM CDT Fidencio Squires M.D., M.P.H. LAB MICROBIOLOGY - [facility] OD ORDERABLES Final Result Performing Organization Address [facility]/ZIP Co de Phone Number [facility] [address] [place], [place] [id number] [place] [address] [place] [address] * Glucose, Random (11/07/2024 3:36 PM CDT) Pathologist [facility] Glucose, S 95 70 - 140 mg/dL 11/07/2024 4:19 PM CDT DTL Blood (Blood, Venous) 11/07/2024 3:36 PM CDT 11/07/2024 4:02 PM CDT Fidencio Squires M.D., M.P.H. LAB BLOOD TROPONIN Fin al Result Performing Organization Address [facility]/ZIP Co de Phone Number [facility] [address] [place] [address], [place] DTL [facility] [address] [place] [address] * nonstress test - conway (11/05/2024 11:41 PM CDT) Narrative Rylie Henderson M.D. - 11/05/2024 11:41 PM CDT Rylie Henderson M.D. 11/06/2024 12:11 AM SUBJECTIVE April Kendal Oscar, a at 38w5d with an Estimated Date of Delivery: 11/14/24, was seen for a nonstress test. OBJECTIVE Nonstress test findings: Reason for NST: Contractions Baseline Rate (BR): 125 bpm Variability: Moderate Acceleration Pattern: 15x15 Deceleration Pattern: None Contractions: Not present Nonstress Test Interpretation: Reactive Duration of NST (minutes): >20 Blood Pressure: 125/66 Heart Rate: 80 ASSESSMENT / PLAN Patient is remaining in triage status for further evaluation. Lorena Khan R.N. us Rylie Henderson M.D. OB GYNE ORDERABLES Final Re sult * US OB BPP without Non-Stress - Conway (11/01/2024 11:45 AM CDT) Only the most recent of2 resultswithin the time period is included. Anatomical Region Laterality Modality Body, Ultrasound OB RST LOS, Ultrasound ARZ LOS N/A Ultrasound 11/01/2024 11:3 3 AM CDT Narrative 11/01/2024 11:50 AM CDT Exam Type ========= OB Biophysical Profile Indication ======== bpp 38 weeks GDMA2/BMI History ====== OB History 5. Para 3 Method ====== Transabdominal ultrasound examination. View: Good view ========= [place] Dating ====== Date Details Gest. age AHMET LMP 02/08/2024 38 w + 1 d 11/14/2024 Stated AHMET 38 w + 1 d 11/14/2024 Assigned dating based on stated AHMET, selected on 10/05/2024 38 w + 1 d 11/14/2024 General Evaluation Cardiac activity present. FHR 155 bpm. Presentation: Cephalic Placenta: Placental site: posterior Umbilical cord: Cord vessels: Not evaluation on current study. Amniotic Fluid Assessment Amount of AF: normal MVP 5.3 cm Biophysical Profile 2: breathing movements 2: Gross body movements 2: tone 2: Amniotic fluid volume 8/8 Biophysical profile score Anatomy The following structures appear normal: Heart / Thorax Diaphragm. Abdomen Stomach. Kidneys. Bladder. sex: male. Impression ========= [place] intrauterine . Cephalic presentation. BPP 8/8 with MVP 5.3cm. Procedure Note Camilo Nino M.D. - 11/01/2024 Exam Type ========= OB Biophysical Profile Indication ======== bpp 38 weeks GDMA2/BMI History ====== OB History 5. Para 3 Method ====== Transabdominal ultrasound examination. View: Good view ========= [place] Dating ====== Date DetailsGest. age AHMET LMP 02/08/2024 38 w + 1 d11/14/2024 Stated AHMET 38 w + 1 d 11/14/2024 Assigned dating based on stated AHMET, selected on w + 1 d 11/14/2024 General Evaluation Cardiac activity present. FHR 155 bpm. Presentation: Cephalic Placenta: Placental site: posterior Umbilical cord: Cord vessels: Not evaluation on current study. Amniotic Fluid Assessment Amount of AF: normal MVP 5.3 cm Biophysical Profile 2: breathing movements 2: Gross body movements 2: tone 2: Amniotic fluid volume 8/8 Biophysical profile score Anatomy The following structures appear normal: Heart / Thorax Diaphragm. Abdomen Stomach. Kidneys. Bladder. sex: male. Impression ========= [place] intrauterine . Cephalic presentation. BPP 8/8 with MVP 5.3cm. us Estrella GARY IMG OB US PROCEDURES Final Result * Ferritin (10/26/2024 10:51 AM CDT) Ferritin, S 64 6 - 175 mcg/L 10/26/2024 12:01 PM CDT DTL Blood (Blood, Venous) 10/26/2024 10:51 AM CDT 10/26/2024 11:13 AM CDT us Estrella Vera CN LAB BLOOD ADD-ON Final Res ult [facility] [address] [place] [address], [facility] [address] [place] [address] * US OB Limited and BPP Without Non Stress (10/19/2024 9:30 AM CDT) Anatomical Region Laterality Modality Body, Ultrasound OB RST LOS, Ultrasound ARZ LOS N/A Ultrasound 10/19/2024 9:09 AM CDT Narrative 10/19/2024 9:45 AM CDT Exam Type ========= OB Cervix Indication ======== DM, BMI History ====== OB History 5. Para 3 Method ====== Transabdominal ultrasound examination ========= [place] Dating ====== Date Details Gest. age AHMET LMP 02/08/2024 36 w + 2 d 11/14/2024 Stated AHMET 36 w + 2 d 11/14/2024 Assigned dating based on stated AHMET, selected on 10/05/2024 36 w + 2 d 11/14/2024 General Evaluation Cardiac activity present. FHR 126 bpm. Presentation: Cephalic Placenta: Placental site: posterior Umbilical cord: Cord vessels: not evaluated Amniotic Fluid Assessment Amount of AF: normal MVP 6.0 cm Biophysical Profile 2: breathing movements 2: Gross body movements 2: tone 2: Amniotic fluid volume 8/8 Biophysical profile score Interpretation: normal Anatomy sex: male. Impression ========= [place] intrauterine . Cephalic presentation. Amniotic fluid volume normal (MVP 6 cm). BPP score 8/8. Procedure Note Sunshine Steiner M.D. - 10/19/2024 Exam Type ========= OB Cervix Indication ======== DM, BMI History ====== OB History 5. Para 3 Method ====== Transabdominal ultrasound examination ========= [place] Dating ====== Date DetailsGest. age AHMET LMP 02/08/2024 36 w + 2 d11/14/2024 Stated AHMET 36 w + 2 d 11/14/2024 Assigned dating based on stated AHMET, selected on 536 w + 2 d 11/14/2024 General Evaluation Cardiac activity present. FHR 126 bpm. Presentation: Cephalic Placenta: Placental site: posterior Umbilical cord: Cord vessels: not evaluated Amniotic Fluid Assessment Amount of AF: normal MVP 6.0 cm Biophysical Profile 2: breathing movements 2: Gross body movements 2: tone 2: Amniotic fluid volume 8/8 Biophysical profile score Interpretation: normal Anatomy sex: male. Impression ========= [place] intrauterine . Cephalic presentation. Amniotic fluid volume normal (MVP 6 cm). BPP score 8/8. us Estrella Vera CNM IM OB US PROCEDURES Final Result * Hepatitis C Virus Antibody Screen (05/16/2024 4:25 PM HOME [facility]) HCV Ab Scrn , S Negative Negative 05/16/2024 10:24 PM [facility] Comment: Consumption of high-dose biotin supplement within 12 hours of blood collection for this test can cause false-negative results. Blood (Blood, Venous) 05/16/2024 4:25 PM HOME [facility]ION 05/16/2024 8:02 PM [facility]ION Estrella GARY LAB MICROBIOLOGY - BLOOD O RDERABLES Final Result Performing Organization Address [facility] de Phone Number [facility] [address] [place] [address] [facility] [address] [place] [address] * HIV-1/-2 Ag and Ab Scrn, Plasma (05/16/2024 4:25 PM [facility]) [facility] HIV-1/-2 Ag and Ab Scrn, P Negative Negative 05/16/2024 10:08 PM [facility] Comment: Negative result does not rule out HIV infection. If exposure to HIV infection occurred <14 days ago, contact the laboratory to request addition of HIV-1/HIV-2 RNA detection , Plasma (HPP12). Blood (Blood, Venous) 05/16/2024 4:25 PM HOME [facility]ION 05/16/2024 8:02 PM HOME COMPANION Result [facility] Estrella Vera CNM LAB MICROBIOLOGY - BLOOD O RDERABLES Final Result Performing Organization Address [facility] Co de Phone Number [facility] [address] [place] [address] [facility] [address] [place] [address] * HPV with Genotyping, PCR, ThinPrep (05/16/2024 3:52 PM HOME [facility]ANION) Pathologist [facility] Specimen Source Cervix/Endoc ervix 05/18/2024 6:59 PM HOME [facility]ANION [facility] HPV High Risk type 16, PCR Negative Negative 05/18/2024 6:59 PM HOME COMPANION SDS HPV High Risk type 18, PCR Negative Negative 05/18/2024 6:59 PM HOME COMPANION [facility] HPV other High Risk types, PCR Negative Negative 05/18/2024 6:59 PM [facility] Comment: The following Other High Risk HPV types were not detected: 31, 33, 35, 39, 45, 51, 52, 56, 58, 59, 66, and 68. This test was ordered in the context of a [facility] [employer] Cytology case; this result should be interpreted within the context of the [employer] cytology report. ----ADDITIONAL INFORMATION---- Testing was performed using the jim HPV assay ([employer] This report is intended for use in clinical monitoring and management of patients. It is not intended for use in medical-legal applications. 05/16/2024 3:52 PM [facility]ION 05/16/2024 7:47 PM HOME [facility]ANION us Estrella GARY LAB MICROBIOLOGY - GENERAL ORDERABLES Final Result [facility] [address] [place] [address] [facility] [address] [place] [address] [place] [address] from Last 3 Months or Most Recently Relevant to Health Maintenance [facility] Advance Directives For more information, please contact: [phone] * Full Code (Latest Code Status on File) Date Activated Date Inactivated Comments 11/08/2024 9:28 AM 11/10/2024 6:00 PM Question Answer Comments Full Code: Not Discussed Due to: Not medically appropriate Care Teams Receiver Relationship Specialty Start Date End Date Elsewhere, Pcp PCP - General 04/03/19 Ainsley 05/16/24
--- OUTSIDE RECORDS SUMMARY | 2025-01-14 13:43 | XMS_ITS | Encounter Summary ---
Author Organization [facility] Address [address] [place] [id number] Care Team Providers Care Laborer Tree Tapping Name Role Phone Elsewhere, Pcp Primary Care Provider Unavailabl e Encounter Details Date Type Department Care Team ([facility] st Contact Info) Description 11/20/2024 Results Follow-Up Department of Obstetrics and Gynecology in [place], [place] [address] [place] [phone] Rylie Henderson M.D. [address] [place] [address] Surgical Pathology Social History Tobacco Use Types Packs/Day Years [...] things needed for daily living? No 11/07/2024 [facility] Utilities Answer Date Recorded In the past 12 months has th App Partner electric, gas, oil, or water company threatened to shut off services in your home? No 11/07/2024 Depression Answer Date Recor ded PHQ-9 Total Score (max 27) 12 12/05 Housing Stability Answer Date Recorded What is your living situation today? I have a [facility] place to live 11/07/2024 Education Answer Date Recorded What is the highest level of school you have completed or the highest degree you have received? Associate degree: occupational, technical, or vocational program 08/06/2021 Comments No Sex and Gender Information Value Date Recorded Sex Assigned at Female 05/24/2018 11:02 AM CDT Legal Sex Female 7:46 PM [employer]UTE POL[employer]ER Gender Identity Female 05/24/2018 11:02 AM CDT Sexual Orientation Straight 05/24/2018 11 :02 AM CDT Occupation Industry Job Start Date Job End Date [employer] Employee Not on file Not on file Not on fi le [employer] Not on file Not on file Not on file documented as of this encounter Miscellaneous Notes * Result Encounter Note - Rylie Henderson M.D. - 11/20/2024 10:51 PM CDT I have reviewed the final pathology report and the identified diagnosis is consistent with the patient's clinical presentation. documented in this encounter Plan of Treatment Upcoming Encounters Date Type Department Care Team (Latest Contact Info) Description 01/26/2025 3:00 PM [employer]ER Clinical Communication Virtual Review in [place], [place] [address] [place] [phone] documented as of this encounter Visit Diagnoses Not on filedocumented in this encounter Additional Health Concerns Assessment Noted Time PHQ-9 Depression Total Score: 7 09/01/19 9:40 AM CDT documented as of this encounter Care Teams Laborer Tree Tapping Relationship Specialty Start Date End Date Elsewhere, Pcp PCP - General 04/03/19 Ainsley 05/16/24 documented as of this encounter
[2025-01-14 13:47] VITALS: BP 147/84; PULSE 77; RESP 18; TEMP 36.3; O2SAT 98; BMI 51.2
--- NOTE | 2025-01-14 14:11 | CRLHL7_ITS ---
For Patients: As a result of the Century Cures Act, medical imaging exams and procedure reports are released immediately into your electronic medical record. You may view this report before your referring provider. If you have questions, please contact your health care provider. INDICATION: Eight weeks . Heavy bleeding for the 2nd time. Resolved with the ingestion of a pill previously but bleeding has resumed. TECHNIQUE: An endovaginal scan was performed. The patient was not prepped for a transabdominal exam. Grayscale and color Doppler images of the uterus and ovaries were obtained. COMPARISON: CT scan 10/28/2023. FINDINGS: The uterus is retroverted. The endometrium measures 12.2 mm in thickness and is somewhat echogenic. There is no definite internal blood flow with the application of color Doppler. Based upon the echogenic appearance, retained products conception not excluded. No myometrial abnormality is identified. There is a simple cyst or follicle the of left ovary 2.0 x 2.6 cm. The left ovary measures 4.6 x 3.1 x 3.9 cm. The right ovary is unremarkable and measures 3.6 x 2.3 x 2.0 cm. There is a minimal amount of free pelvic fluid. IMPRESSION: Retroverted uterus. Echogenic endometrium measuring up to 12.2 mm in thickness. There is no definite internal blood flow visualized with the application of color Doppler although the echogenic appearance does raise the possibility of retained products of conception. Dictated by Steven Brock MD @ 01/14/2025 3:39:10 PM (Electronically Signed)
--- NOTE | 2025-01-14 14:12 | ED_ITS ---
HPI - General Adult General Chief complaint: Post OB/Post- Complication Stated complaint: heavy bleeding 8 weeks Time Seen by Provider: 01/14/25 13:53 Source: patient Mode of arrival: ambulatory Limitations: no limitations History of Present Illness HPI narrative: 29-year-old female presenting today 8 weeks , with heavy vaginal bleeding. She states that for the last 3 days she has been soaking a pad about 1-2 hours. She will double shaky yesterday, otherwise denies feeling dizzy or lightheaded. She denies any chest pain. She states that about 1 month she stops bleeding and then started again. She states that she went to [facility] and had some testing done and they did not find anything. The bleeding stopped a few days later and then 3 days ago started again, s ignificantly heavier than it has been. She states that she was told something was wrong with her placenta at delivery, unclear of what that was. We are trying to get her records. This was patient's 5th delivery. Patient has been sexually active since delivery. Related Data Home Medications ?Medication ?Instructions ?Recorded ?Confirmed hydroxyzine HCl 25 mg tablet 25 mg PO Q6H PRN anxiety 10/28/23 01/14/25 meclizine 25 mg tablet 25 mg PO 3XD PRN vertigo 01/14/25 sertraline 100 mg tablet 150 mg PO DAILY 10/28/2305/09 valacyclovir 500 mg tablet 500 mg PO BID 10/28/2305/09 albuterol sulfate 90 mcg/actuation 1 - 2 puff inhalati on Q4H PRN 01/14/25 01/14/25 aerosol inhaler (Ventolin HFA) wheezing epinephrine 0.3 mg/0.3 mL 0.3 mg IM anaphylaxis injection, auto-injector ibuprofen 600 mg tablet mg PO 01/14/25 metoclopramide HCl 10 mg tablet 10 mg PO Q8H PRN heada yunior 01/14/25 01/14/25 Previous Rx's ?Medication ?Instructions ?Recorded norethindrone acetate 5 mg tablet 5 mg PO QID 7 days # 30 tabs 01/14/25 Allergies Allergy/AdvReac Type Severity Reaction Status Date / Time bee pollen Allergy Severe Anaphylaxis Verified 01/14/25 13:47 buspirone (From BuSpar) Allergy Hives Verified 01/14/25 13:47 Review of Systems Status of ROS: Reports: 10 or more systems reviewed and unremarkable except as noted in History and below [facility] Social History Smoking Status: Never smoker Do you use any of these nicotine containing products: None Second hand tobacco smoke exposure: Yes How often do you have a drink containing alcohol: monthly or less How many standard drinks containing alcohol do you have on a typical day: 1 or 2 How often do you have six or more drinks on one occasion: Never AUDIT-C Alcohol total score: 1 Non-prescribed substance use: denies use service: No Exam Narrative: Exam Narrative: Obese, well-developed patient in no acute distress. Alert and oriented. Answers questions appropriately. Mood and affect are appropriate. Thoughts are goal oriented and rational. No tangential or magical thinking noted. Patient speaks in full sentences without needing to catch her breath. HEENT: Normocephalic atraumatic. Pupils are equally round reactive to light. Extraocular muscles are intact. Conjunctivae are moist without any icterus noted. She is not pale. Moist mucous membranes. Cardiovascular: Heart is regular rate and rhythm S1 and S2 are present without any murmurs. Lungs: Clear to auscultation bilaterally no wheezes rhonchi or rales are appreciated. Patient takes deep breaths without any discomfort. Abdomen: Soft and nontender nondistended with normal bowel sounds. Skin: Well perfused . Const: Vital Signs, click to edit/add: Vital Signs - 24 hr 01/14/25 13:47 01/14/25 15:15 Temperature 97.3 F L Pulse Rate [Right Pulse Oximeter] 77 75 Respiratory Rate 18 16 Blood Pressure [Ri ght Upper Arm] 147/84 H 119/87 Pulse Oximetry 98 96 Oxygen Delivery Me thod Room Air Room Air Course Course ED Course: CBC is unremarkable. Urinalysis showing 3+ blood, 10-25 RBCs. Negative test. Ultrasound shows echogenic endometrium measuring up to 12.2 mm in thickness, with a possibility of retained products of conception. Discussed with Dr. Newell who recommends norethindrone taper an outpatient follow- up. Vital Signs Vital signs: Initial Vital Signs Temperature 97.3 F L 01/14/25 13:47 Temperature Source Temporal Artery Scan 01/14/25 13:47 Pulse Rate 77 01/14/25 13:47 Respiratory Rate 18 01/14/25 13:47 Blood Pressure 147/84 H 01/14/25 13:47 Blood Pressure Mean 105 01/14/25 13:47 Pulse Oximetry 98 01/14/25 13:47 Oxygen Delivery Method Room Air 01/14/25 13:47 Vital Signs Temperature 97.3 F L 01/14/25 13:47 Pulse Rate 77 01/14/25 13:47 Respiratory Rate 18 01/14/25 13:47 Blood Pressure 147/84 H 01/14/25 13:47 Pulse Oximetry 98 01/14/25 13:47 Oxygen Delivery Method Room Air 01/14/25 13:47 Temperature 97.3 F L 01/14/25 13:47 Pulse Rate 75 01/14/25 15:15 Respiratory Rate 16 01/14/25 15:15 Blood Pressure 119/87 01/14/25 15:15 Pulse Oximetry 96 01/14/25 15:15 Oxygen Delivery Method Room Air 01/14/25 15:15 Medications Administered Medications: Generic Name Dose Route Start Last Admin Trade Name Freq PRN Reason Stop Dose Admin Ibuprofen 600 mg 01/14/25 16:05 01/14/25 16:20 Ibuprofen 400 Mg Tablet PO 01/14/25 16:06 600 mg ONCE ONE Administration Medical Decision Making MDM Narrative Medical decision making narrative: 29-year-old female menometrorrhagia. Patient is hemodynamically stable. Will start norethindrone taper. Will establish care with local OBGYN. Lab Data Lab results reviewed: Yes I reviewed the patient's lab results Labs: Lab Results 01/14/25 01/14/25 Range/Units 13:55 15:21 WBC 6.98 (4.50-11.00) K/uL RBC 4.56 (4.00-5.20) m/uL Hgb 13.9 (12.0-16.0) gm/dL Hct 40.8 (33.0-51.0) % MCV 90 (80-100) fL MCH 31 (26-34) pg MCHC 34 (32-36) gm/dL RDW Coeff of Tiff 11.7 (11.5-15.5) % Plt Count 196 (140-440) K/uL Neut % (Auto) 38.6 L (42.0-72.0) % Lymph % (Auto) 51.4 H (20-44) % [place] % (Auto) 5.0 (0.0-11.0) % Eos % (Auto) 4.6 (0.0-7.0) % Baso % (Auto) 0.4 (0.0-3.0) % Neut # (Auto) 2.70 (1.7-7.0) K/uL Lymph # (Auto) 3.60 H (0.90-2.90) K/uL [place] # (Auto) 0.30 (0.00-0.90) K/UL Eos # (Auto) 0.32 (0.00-0.50) K/uL Baso # (Auto) 0.03 (0.00-0.30) K/uL Abs Immat Gran (auto) 0.00 (0.00-0.30) K/uL Imm/Tot Granulo (auto) 0.0 % Urine Color Yellow (Yellow) Urine Appearance Cloudy A (Clear) Urine pH 5.5 (5.0-8.5) Ur Specific [place] >= 1.030 (1.000-1.030) Urine Protein 1+ A (Negative) Urine Glucose (UA) Negative (Negative) Urine Ketones Negative (Negative) Urine Blood 3+ A (Negative) Urine Nitrite Negative (Negative) Urine Bilirubin Negative (Negative) Urine Urobilinogen 0.2 (0.2-1.0) Ur Leukocyte Esterase Negative (Negative) Urine RBC 10-25 A (0-2) Urine WBC 0-2 (0-5) Ur Squamous Epith Cells None (None-Few) Urine Bacteria None (None) Urine HCG, Qual Negative (Negative) Blood Type O Negative Imaging Data US - abdomen: Attestation: I have reviewed the pertinent imaging results. Radiologist's impression: TECHNIQUE: An endovaginal scan was performed. The patient was not prepped for a transabdominal exam. Grayscale and color Doppler images of the uterus and ovaries were obtained. COMPARISON: CT scan 10/28/2023. FINDINGS: The uterus is retroverted. The endometrium measures 12.2 mm in thickness and is somewhat echogenic. There is no definite internal blood flow with the application of color Doppler. Based upon the echogenic appearance, retained products conception not excluded. No myometrial abnormality is identified. There is a simple cyst or follicle the of left ovary 2.0 x 2.6 cm. The left ovary measures 4.6 x 3.1 x 3.9 cm. The right ovary is unremarkable and measures 3.6 x 2.3 x 2.0 cm. There is a minimal amount of free pelvic fluid. IMPRESSION: Retroverted uterus. Echogenic endometrium measuring up to 12.2 mm in thickness. There is no definite internal blood flow visualized with the application of color Doppler although the echogenic appearance does raise the possibility of retained products of conception. Discharge Plan Discharge Clinical Impression: Menometrorrhagia Patient Disposition: Home, Self-Care Condition: Stable Additional Instructions: Recommend establishing care with an OBGYN at the [facility]. Phone number will be provided to you so you can call them 1st thing in the morning to set up an appointment in the next 2-3 days. Make sure to bring your previous medical records from [facility] with you to your appointment or have them sent in to the [facility] in advance of your appointment. Start taking norethindrone 1 tablet every 6 hours until the bleeding stops then taper per directions. You should expect bleeding once you finish the medication, but it should not be heavy like it is now. Return to the emergency department if bleeding worsens, if you develop chest pain or shortness of breath. Prescriptions: New norethindrone acetate 5 mg tablet 5 mg PO QID 7 Days Qty: 30 0RF Rx Instructions: Take 1 tablet every 6 hours until bleeding stops then take 1 tablet 3 times per day for 2 days, and then to 2 times per day for 2 days, then once daily for 2 days. No Action sertraline 100 mg tablet 150 mg PO DAILY valacyclovir 500 mg tablet 500 mg PO BID meclizine 25 mg tablet 25 mg PO 3XD PRN (Reason: vertigo) hydroxyzine HCl 25 mg tablet 25 mg PO Q6H PRN (Reason: anxiety) ibuprofen 600 mg tablet PO metoclopramide HCl 10 mg tablet 10 mg PO Q8H PRN (Reason: headache) albuterol sulfate [Ventolin HFA] 90 mcg/actuation HFA aerosol inhaler 1 - 2 puff INHALATION Q4H PRN (Reason: wheezing) epinephrine 0.3 mg/0.3 mL auto-injector 0.3 mg IM Follow Up/Referrals: Provider,Not a Local [Primary Care Provider, Family Practice] Stand Alone Forms: [employer] Info Instructions
[2025-01-14 14:14] LABS: Appearance Urine Cloudy (Clear)
[2025-01-14 14:24] LABS: Ur HCG Qualitative* Negative (Negative)
[2025-01-14 15:15] VITALS: BP 119/87; PULSE 75; RESP 16; O2SAT 96
[2025-01-14 15:29] LABS: Hematocrit* 40.8 % (33.0-51.0); Hemoglobin* 13.9 gm/dL (12.0-16.0); Immature Granulocytes Abs Auto 0.00 K/uL (0.00-0.30); Immature Granulocytes Pct Auto 0.0 %; Mean Corpuscular HGB Conc 34 gm/dL (32-36); Mean Corpuscular Hemoglobin 31 pg (26-34); Mean Corpuscular Volume 90 fL (80-100); RDW Coefficient of Variation % 11.7 % (11.5-15.5); Red Blood Count* 4.56 m/uL (4.00-5.20); White Blood Count* 6.98 K/uL (4.50-11.00)
[2025-01-14 15:31] LABS: Lymphocytes Absolute Auto 3.60 K/uL (0.90-2.90); Slide Review Reflex No
[2025-01-14] MEDS: IBUPROFEN 400 MG TABLET 600 MG PO (16:20)
== END 2025-01-14 16:37 | disposition home or self-care (01) ==
PROVIDERS: Emergency Provider Family Medicine
DX: N92.1 Excessive and frequent menstruation with irregular cycle (principal)
CPT/HCPCS: 36415; 76830; 81001; 81025; 85025; 86900; 86901; 99284; A9270

== ENCOUNTER 2025-02-24 20:01 | Emergency (ER) | payer MEDICAID, SELFPAY ==
--- OUTSIDE RECORDS SUMMARY | 2025-01-26 15:00 | XMS_ITS | Encounter Summary ---
Author Organization [facility] Address [address] [place] [id number] Care Team Providers Care Prepress Operator Name Role Phone Elsewhere, Pcp Primary Care Provider Unavailabl e Reason for Visit * ReasonOnset DateCommentsPre-visit Swbtet4701/26/2025 * Appointment Request (Routine) - AuthorizedSpecialtyDiagnoses / Procedures Referred By ContactReferred To ContactPsychiatry and Psychology Referral IDStatusReasonStart DateExpiration DateVisits RequestedVisits [id number]/23/202512/ Encounter Details DateTypeDepartmentCare Team (Latest Contact Info)Coaiapezbzk29/14/2025 3:00 PM CSTClinical Communication Virtual Review in [address] [id number] Pre-visit Intake Social History Tobacco UseTypesPacks/DayYears UsedDateSmoking Tobacco: NeverSmokeless Tobacco: Never Tobacco Cessation:Counseling Given: Not Answered Alcohol UseStandard Drinks/WeekCommentsNot Currently0 (1 standard drink = 0.6 oz pure alcohol)Not in pregnancyHumiliation, Afraid, Rape, and Kick questionnaire AnswerDate RecordedWithin the last year, have you been afraid of your partner or ex-partner?No11/07/2024Within the last year, have you been humiliated or emotionally abused in other ways by your partner or ex-partner?No11/07/2024 Within the last year, have you been kicked, hit, slapped, or otherwise physically hurt by your partner or ex-partner?No11/07/2024Within the last year, have you been raped or forced to have any kind of sexual activity by your part ner or ex-partner?No11/07/2024Hunger Vital SignAnswerDate RecordedWithin the past 12 months, you worried that your food would run out before you got the money to buymore.Never true11/07/2024Within the past 12 months, the food you bought just didn't last and you didn't have money to get more.Never true 11/07/2024PRAPARE - TransportationAnswerDate RecordedIn the past 12 months, has lack of transportation kept you from medical appointments or from getting medications?No11/07/2024In the past 12 months, has lack of transportation kept you from meetings, work, or from getting things needed for daily living?No 11/07/2024HC UtilitiesAnswerDate RecordedIn the past 12 months has the electric, gas, oil, or water company threatened to shut off services in your home?No11/07/2024Postpartum DepressionAnswerDate RecordedPHQ-9 Total Score (max 27)Housing StabilityAnswerDate RecordedWhat is your living situation today?I have a steady place to live11/07/2024EducationAnswerDate RecordedWhat is the highest level of school you have completed or the highest degree you have received?Associate degree: occupational, technical, or vocational program 2CommentsNoSex and Gender InformationValueDate RecordedSex Assigned at OruduXozler44/12/2019 11:02 AM CDTLegal GjvYdekhg44/02/2017 7:46 PM CSTGender NxkdhxfhLqndzn14/12/2019 11:02 AM CDTSexual OrientationStraight 05/24/2018 11:02 AM CDTOccupationIndustryJob Start DateJob End DateFast Food EmployeeNot on fileNot on fileNot on fileTristar WelderNot on fileNot on fileNot on filedocumented as of this encounter Plan of Treatment Not on file documented as of this encounter Visit Diagnoses Not on filedocumented in this encounter Additional Health Concerns AssessmentNoted TimePHQ-9 Depression Total Score: 11:10 AM CDT documented as of this encounter Care Teams Team MemberRelationshipSpecialtyStart DateEnd Date Elsewhere, Pcp PCP - General04/03/19 Ainsley 05/16/24documented as of this encounter
[2025-02-24] VITALS (14 sets, daily range): BP systolic 111–174; BP diastolic 61–92; PULSE 65–78; RESP 18; TEMP 36.4; O2SAT 96–99; BMI 51.7
--- NOTE | 2025-02-24 20:36 | CRLHL7_ITS ---
For Patients: As a result of the Century Cures Act, medical imaging exams and procedure reports are released immediately into your electronic medical record. You may view this report before your referring provider. If you have questions, please contact your health care provider. Indication: Nausea and dizziness. Technique: CT of the head without contrast. Coronal and sagittal reformats. Bone and soft tissue windows. Comparison: MRI 03/12/2022. Findings: No acute intracranial hemorrhage or extra-axial collection. No evidence of acute cortical infarction. No mass effect or midline shift. Normal cerebral volume. The ventricles are normal in size, shape and contour. There is normal espino and white matter differentiation. Partially empty sella. The orbital contents are normal. No calvarial fractures. No lytic or sclerotic osseous lesions within the calvarium or skull base. Scalp and other imaged soft tissue structures are normal. Mastoid air cells are clear. Paranasal sinuses are well aerated. Incidental osteoma in the left mastoid air cells. Discussed with Dr. Peters at 8:59 pm 02/24/2025 Impression: 1. No acute intracranial abnormality. 2. Partially empty sella raises the possibility of idiopathic intracranial hypertension in the appropriate clinical setting. Please note that all CT scans at this facility use dose modulation, iterative reconstruction, and/or weight-based dosing when appropriate to reduce radiation dose to as low as reasonably achievable. Dictated by Sandro Magdaleno MD @ 02/24/2025 9:00:11 PM (Electronically Signed)
--- NOTE | 2025-02-24 20:38 | ED.DIZZY ---
HPI - Dizziness General Date Seen: 02/24/25 Chief Complaint: Dizziness/Vertigo Stated Complaint: dizzy, nauseous, lack of mobility Time Seen by Provider: 02/24/25 20:27 Source: patient, family, RN notes reviewed and old records reviewed Mode of arrival: wheelchair Limitations: no limitations History of Present Illness HPI Narrative: patient is a 30-year-old female who presents here with her significant other for nausea, and intense vertigo symptoms. These are zuly approximately at 7:00 p.m. tonight when she was at her in-laws place, she bent over and noticed that she was unable to stand without nausea, and the room spinning, she also noted at time she had a little bit of altered sensation on her right hand. More on the back than the front. This is continued. She is 3 months at this point, she does have a history of a previous ischemic cerebellar stroke and left vertebral artery dissection This occurred in February of 2022. She says any time she sits up, the symptoms worsen. She has not vomited but she feels very nauseous over the past 3-4 months, she has noted increasing dizziness, but never to this agree this is the worst she has ever had, she says normally she will take meclizine and within 20 minute she will feel better. 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 She denies any fevers chills or sweats, there is no diarrhea there was no rashes associated with this. She denies any chest pain shortness of breath or other issues. She did drink alcohol yesterday, but did not drink an. MD elicited complaint: dizziness, difficulty walking, vertigo and disequilibrium Onset (ago): hour(s) Timing: sudden onset Description: sense of movement, room spinning and difficulty walking Context: change in body position History of similar symptoms: Yes Exacerbating factors: movement/ambulation and change in body position Relieving factors: remaining still Associated symptoms: nausea Associated neuro symptoms: other Related Data Home Medications ?Medication ?Instructions ?Recorded ?Confirmed hydroxyzine HCl 25 mg tablet 25 mg PO Q6H PRN anxiety 10/28/23 01/14/25 meclizine 25 mg tablet 25 mg PO 3XD PRN vertigo 10/28/23 01/14/25 sertraline 100 mg tablet 150 mg PO DAILY 10/28/23 01/14/25 valacyclovir 500 mg tablet 500 mg PO BID 10/28/23 01/14/25 albuterol sulfate 90 mcg/actuation 1 - 2 puff inhalation Q4H PRN 01/14/25 01/14/25 aerosol inhaler (Ventolin HFA) wheezing epinephrine 0.3 mg/0.3 mL 0.3 mg IM anaphylaxis 01/14/25 injection, auto-injector ibuprofen 600 mg tablet mg PO 01/14/25 metoclopramide HCl 10 mg tablet 10 mg PO Q8H PRN headache 01/14/25 01/14/25 acetaminophen 500 mg oral powder 1,000 mg PO Q6H PRN 02/24/25 02/24/25 packet (Tylenol Extra Strength) Previous Rx's ?Medication ?Instructions ?Recorded norethindrone acetate 5 mg tablet 5 mg PO QID 7 days #30 tabs 01/14/25 Allergies Allergy/AdvReac Type Severity Reaction Status Date / Time bee pollen Allergy Severe Anaphylaxis Verified 01/14/25 13:47 buspirone (From BuSpar) Allergy Hives Verified 01/14/25 13:47 Review of Systems Status of ROS: Reports: 10 or more systems reviewed and unremarkable except as noted in History and below [facility] Social History Smoking Status: Never smoker Do you use any of these nicotine containing products: None Second hand tobacco smoke exposure: Yes How often do you have a drink containing alcohol: monthly or less How many standard drinks containing alcohol do you have on a typical day: 1 or 2 How often do you have six or more drinks on one occasion: Never AUDIT-C Alcohol total score: 1 Non-prescribed substance use: denies use service: No Exam Narrative: Exam Narrative: On examination in room 1, she has no apparent distress she has eloquent speech she is nontoxic, are pupils equal round reactive to light, she has bilateral nystagmus, notable. TMs are normal, carotid upstrokes equal bilaterally and cranial nerves 3-12 are normal, her neck is supple absence of meningismus, her symptoms do worsen when she sits up, if she per versus it back at 45?, her chest is good air entry bilaterally with no wheezing crackles noted her heart sounds are normal no clicks murmurs or gallops her abdomen is soft, there is no guarding no organomegaly bowel sounds are normal. 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 she is right-hand dominant, Const: Vital Signs, click to edit/add: Vital Signs - 24 hr 02/24/25 20:19 02/24/25 21:00 02/24/25 21:57 Temperature 97.5 F L Pulse Rate [Right Pulse Oximeter] 77 78 70 Respiratory Rate 18 18 18 Blood Pressure [Ri ght Upper Arm] 174/91 H 130/92 H 132/75 Pulse Oximetry 99 96 98 Oxygen Delivery Me thod Room Air Room Air Room Air 02/24/25 22:19 02/24/25 22:23 02/24/25 22:24 Temperature Pulse Rate [Right Pulse Oximeter] Respiratory Rate Blood Pressure [Ri ght Upper Arm] Pulse Oximetry 99 99 99 Oxygen Delivery Me thod 02/24/25 22:30 02/24/25 22:42 02/24/25 22:45 Temperature Pulse Rate [Right Pulse Oximeter] Respiratory Rate Blood Pressure [Ri ght Upper Arm] Pulse Oximetry 98 97 98 Oxygen Delivery Me thod Course Reevaluation(s) Time of Reevaluation #1: 22:33 Reevaluation #1: I went back and re-evaluated the patient, had her set up the symptoms of vertigo came right back, she felt like she was listing to her left. He says she does not have a headache right now, so that is better, I will wait to see and talk with her neurologist . Time of Reevaluation #2: 23:24 Reevaluation #2: I spoke to Dr. Tello from Stroke Neurology she recommends transfer, to [facility] on tele bed, for an MRI, and a MRA with venous to rule out stroke. She also recommended aspirin, 324 on top of the 650 she took today. Consultations Consultation #1: Stroke Neurology 20;40 Vital Signs Vital signs: Initial Vital Signs Temperature 97.5 F L 02/24/25 20:19 Temperature Source Temporal Artery Scan 02/24/25 20:19 Pulse Rate 77 12/13/25 20:19 Respiratory Rate 18 02/24/25 20:19 Blood Pressure 174/91 H 02/24/25 20:19 Blood Pressure Mean 118 H 02/24/25 20:19 Blood Pressure Position Sitting 02/24/25 20:19 Pulse Oximetry 99 02/24/25 20:19 Oxygen Delivery Method Room Air 02/24/25 20:19 Vital Signs Temperature 97.5 F L 02/24/25 20:19 Pulse Rate 77 02/24/25 20:19 Respiratory Rate 18 02/24/25 20:19 Blood Pressure 174/91 H 02/24/25 20:19 Pulse Oximetry 99 02/24/25 20:19 Oxygen Delivery Method Room Air 02/24/25 20:19 Temperature 97.5 F L 02/24/25 20:19 Pulse Rate 65 02/24/25 23:30 Respiratory Rate 18 02/24/25 21:57 Blood Pressure 117/61 02/24/25 23:22 Pulse Oximetry 98 02/24/25 23:30 Oxygen Delivery Method Room Air 02/24/25 21:57 Medications Administered Medications: Discontinued Medications Generic Name Dose Route Start Last Admin Trade Name Freq PRN Reason Stop Dose Admin Aspirin 324 mg 02/24/25 23:23 02/24/25 23:34 Aspirin 81 Mg Tab.Chew PO 02/24/25 23:24 324 mg ONCE ONE Administration Sodium Chloride 1,000 mls @ 1,000 mls/hr 02/24/25 20:45 02/24/25 23:21 0.9 % Sodium Chloride 1000 Ml IV 02/24/25 21:44 Infused .Q1H LUZ Infusion Sodium Chloride 1,000 mls @ 1,000 mls/hr 02/24/25 21:30 02/24/25 23:28 0.9 % Sodium Chloride 1000 Ml IV 02/24/25 22:29 1,000 mls/hr .Q1H LUZ Administration Metoclopramide HCl 10 mg/ 102 mls @ 306 mls/hr 02/24/25 21:20 02/24/25 22:33 Sodium Chloride IVPB 02/24/25 21:39 Infused ONCE ONE Infusion Diphenhydramine HCl 25 mg/ 100.5 mls @ 301.5 mls/hr 02/24/25 21:20 02/24/25 22:33 Sodium Chloride IVPB 02/24/25 21:39 Infused ONCE ONE Infusion MDM - Dizziness MDM Narrative Medical decision making narrative: Life-threatening differential diagnosis considered include, CVA, other differential diagnosis include BPPV, labyrinthitis, Meniere's disease, vestibular neuronitis, migraine, multiple sclerosis, otitis media, viral syndrome as well as other etiologies Differential Diagnosis Differential diagnosis: Likely adverse reaction to drug, benign paroxysmal positional vertigo, orthostatic hypotension, vertebral basilar insufficiency, cerebrovascular accident, acute vestibular neuronitis and transient cerebral ischemia Medical Records Attestation: I reviewed the patient's medical records. Lab Data Labs: Lab Results 02/24/25 02/24/25 Range/Units 20:36 21:35 WBC 7.26 (4.50-11.00) K/uL RBC 4.60 (4.00-5.20) m/uL Hgb 13.9 (12.0-16.0) gm/dL Hct 39.5 (33.0-51.0) % MCV 86 (80-100) fL MCH 30 (26-34) pg MCHC 35 (32-36) gm/dL RDW Coeff of Tiff 11.8 (11.5-15.5) % Plt Count 213 (140-440) K/uL Neut % (Auto) 26.6 L (42.0-72.0) % Lymph % (Auto) 61.6 H (20-44) % [place] % (Auto) 4.7 (0.0-11.0) % Eos % (Auto) 6.1 (0.0-7.0) % Baso % (Auto) 0.7 (0.0-3.0) % Neut # (Auto) 1.90 (1.7-7.0) K/uL Lymph # (Auto) 4.50 H (0.90-2.90) K/uL [place] # (Auto) 0.30 (0.00-0.90) K/UL Eos # (Auto) 0.44 (0.00-0.50) K/uL Baso # (Auto) 0.05 (0.00-0.30) K/uL Abs Immat Gran (auto) 0.02 (0.00-0.30) K/uL Imm/Tot Granulo (auto) 0.3 % INR 0.72 L (0.91-1.10) APTT 27 (23-33) Seconds Sodium 136 (135-149) mmol/L Potassium 3.8 (3.6-5.1) mmol/L Chloride 104 (96-114) mmol/L Carbon Dioxide 24 (20-32) mmol/L Anion Gap 8 (7-15) mEq/L BUN 17 (5-24) mg/dL Creatinine 0.7 (0.5-1.5) mg/dL Estimated Creat Clear 99.63 Estimated GFR 118 ml/min Glucose 100 (60-115) mg/dL Lactate 1.3 (0.5-1.9) mmol/L Calcium 9.1 (8.4-10.6) mg/dL Magnesium 1.7 (1.5-2.6) mg/dL HCG, Qual Negative (Negative) Ethyl Alcohol < 0.01 (0.01-0.03) % SARS-CoV-2 (PCR) Negative SARS-CoV-2 (Negative) Influenza Type A (PCR) Negative PCR FLU A (Negative) Influenza Type B (PCR) Negative PCR FLU B (Negative) RSV (PCR) Negative PCR RSV (Negative) Imaging Data CT scan - head: Radiologist's impression: Patient: JEFRY MOORE Facility:?[facility] RIS Patient ID:?[id number] Site Patient ID:?[id number]. Site :?1995 Study:?CT-Head Angio CTA HEAD W/STROKE PROTOCOL-02/24/2025 9:53:28 PM Ordering Physician:Clyde Avendaño Preliminary Report: COMPARISON: CTA head and neck 05/11/2022. PRELIMINARY IMPRESSION: CTA head: No sign of large vessel occlusion or significant aneurysm. Again demonstrated narrowing of the bilateral distal transverse sinuses, which may be seen in the setting of idiopathic intracranial hypertension. CTA neck: No sign of dissection or significant stenosis. Dictated by Jhonathan Morillo MD @ 02/24/2025 10:05:06 PM Read by:Francis Morillo MD @02/24/2025 10:05:09 PM Patient: JEFRY MOORE Facility:?[facility] Patient ID:?[id number] Site Patient ID:?[id number]. Site :?1995 Study:?CT-Head W/O STROKE CODE-02/24/2025 8:43:57 PM Ordering Physician:Clyde Avendaño Final Report: Indication: Nausea and dizziness. Technique: CT of the head without contrast. Coronal and sagittal reformats. Bone and soft tissue windows. Comparison: MRI 03/12/2022. Findings: No acute intracranial hemorrhage or extra-axial collection. No evidence of acute cortical infarction. No mass effect or midline shift. Normal cerebral volume. The ventricles are normal in size, shape and contour. There is normal espino and white matter differentiation. Partially empty sella. The orbital contents are normal. No calvarial fractures. No lytic or sclerotic osseous lesions within the calvarium or skull base. Scalp and other imaged soft tissue structures are normal. Mastoid air cells are clear. Paranasal sinuses are well aerated. Incidental osteoma in the left mastoid air cells. Discussed with Dr. Peters at 8:59 pm 02/24/2025 Impression: 1. No acute intracranial abnormality. 2. Partially empty sella raises the possibility of idiopathic intracranial hypertension in the appropriate clinical setting. Please note that all CT scans at this facility use dose modulation, iterative reconstruction, and/or weight-based dosing when appropriate to reduce radiation dose to as low as reasonably achievable. Dictated by Sandro Magdaleno MD @ 02/24/2025 9:00:11 PM (Electronic Signature) ECG Data Attestation: I personally reviewed and interpreted this ECG as follows: ECG interpretation date: 02/24/25 Prior ECG tracings: not available for review Interpretation: EKG shows normal sinus rhythm, poor R-wave progression, ventricular rate 66 OK interval 154, QRS is 80 milliseconds, Assessment abnormal EKG, with poor R-wave progression, no old EKG to compare to. Discharge Plan Discharge Clinical Impression: Vertigo, Vertebral basilar insufficiency, Cerebrovascular accident Patient Disposition: Maurice Freedman Condition: Improved Prescriptions: No Action sertraline 100 mg tablet 150 mg PO DAILY valacyclovir 500 mg tablet 500 mg PO BID meclizine 25 mg tablet 25 mg PO 3XD PRN (Reason: vertigo) hydroxyzine HCl 25 mg tablet 25 mg PO Q6H PRN (Reason: anxiety) ibuprofen 600 mg tablet PO metoclopramide HCl 10 mg tablet 10 mg PO Q8H PRN (Reason: headache) albuterol sulfate [Ventolin HFA] 90 mcg/actuation HFA aerosol inhaler 1 - 2 puff INHALATION Q4H PRN (Reason: wheezing) epinephrine 0.3 mg/0.3 mL auto-injector 0.3 mg IM norethindrone acetate 5 mg tablet 5 mg PO QID 7 Days Qty: 30 0RF Rx Instructions: Take 1 tablet every 6 hours until bleeding stops then take 1 tablet 3 times per day for 2 days, and then to 2 times per day for 2 days, then once daily for 2 days. Tylenol Extra Strength 500 mg powder in packet 1,000 mg PO Q6H PRN Stand Alone Forms: [facility] Info Instructions
--- NOTE | 2025-02-24 20:58 | CRLHL7_ITS ---
For Patients: As a result of the Century Cures Act, medical imaging exams and procedure reports are released immediately into your electronic medical record. You may view this report before your referring provider. If you have questions, please contact your health care provider. INDICATION: Dizziness. TECHNIQUE: CTA head using intravenous contrast with bolus tracking, 3D angiographic rendering using maximum intensity projection (MIP) and images permanently archived. CTA neck using intravenous contrast with bolus tracking, 3D angiographic rendering using maximum intensity projection (MIP) and images permanently archived. FINDINGS: CTA head: There is normal opacification of the intracranial vasculature. There is no large vessel occlusion or significant intracranial stenosis. No aneurysm is identified. CTA neck: There is no significant carotid artery stenosis or dissection. There is no significant vertebral artery stenosis or dissection. The previously described left vertebral artery dissection noted at CTA/MRA in 2021 is no longer apparent. IMPRESSION: 1. No acute intracranial abnormality at CTA. 2. No significant carotid or vertebral artery stenosis or dissection. 3. As described on the preliminary report, there is a narrowing of the dominant right transverse sigmoid sinus (can be a normal finding) and a partially empty sella, nonspecific findings that can be seen in the setting of idiopathic intracranial hypertension. If there is clinical concern for this diagnosis, cerebral venography/manometry may be the appropriate next step. If desired, this could be arranged by calling our neurointerventional coordinator at [phone]. Chandler Juarez MD Neurointerventional Radiology [facility]: [phone] Please note that all CT scans at this facility use dose modulation, iterative reconstruction, and/or weight-based dosing when appropriate to reduce radiation dose to as low as reasonably achievable. Dictated by Chandler Juarez MD @ 02/25/2025 9:58:11 AM (Electronically Signed)
--- NOTE | 2025-02-24 20:59 | CRLHL7_ITS ---
For Patients: As a result of the Century Cures Act, medical imaging exams and procedure reports are released immediately into your electronic medical record. You may view this report before your referring provider. If you have questions, please contact your health care provider. INDICATION: Dizziness. TECHNIQUE: CTA head using intravenous contrast with bolus tracking, 3D angiographic rendering using maximum intensity projection (MIP) and images permanently archived. CTA neck using intravenous contrast with bolus tracking, 3D angiographic rendering using maximum intensity projection (MIP) and images permanently archived. FINDINGS: CTA head: There is normal opacification of the intracranial vasculature. There is no large vessel occlusion or significant intracranial stenosis. No aneurysm is identified. CTA neck: There is no significant carotid artery stenosis or dissection. There is no significant vertebral artery stenosis or dissection. The previously described left vertebral artery dissection noted at CTA/MRA in 2021 is no longer apparent. IMPRESSION: 1. No acute intracranial abnormality at CTA. 2. No significant carotid or vertebral artery stenosis or dissection. 3. As described on the preliminary report, there is a narrowing of the dominant right transverse sigmoid sinus (can be a normal finding) and a partially empty sella, nonspecific findings that can be seen in the setting of idiopathic intracranial hypertension. If there is clinical concern for this diagnosis, cerebral venography/manometry may be the appropriate next step. If desired, this could be arranged by calling our neurointerventional coordinator at [phone]. Chandler Juarez MD Neurointerventional Radiology [facility]: [phone] Please note that all CT scans at this facility use dose modulation, iterative reconstruction, and/or weight-based dosing when appropriate to reduce radiation dose to as low as reasonably achievable. Dictated by Chandler Juarez MD @ 02/25/2025 9:58:46 AM (Electronically Signed)
--- NOTE | 2025-02-24 21:38 | ED.NURSE ---
IV established, 18 gauge left AC. Pt to Rad for scan. Delayed due to difficult IV start
[2025-02-24 21:40] LABS: Lactate* 1.3 mmol/L (0.5-1.9)
[2025-02-24 21:42] LABS: Hematocrit* 39.5 % (33.0-51.0); Hemoglobin* 13.9 gm/dL (12.0-16.0); Immature Granulocytes Abs Auto 0.02 K/uL (0.00-0.30); Immature Granulocytes Pct Auto 0.3 %; Mean Corpuscular HGB Conc 35 gm/dL (32-36); Mean Corpuscular Hemoglobin 30 pg (26-34); Mean Corpuscular Volume 86 fL (80-100); RDW Coefficient of Variation % 11.8 % (11.5-15.5); Red Blood Count* 4.60 m/uL (4.00-5.20); White Blood Count* 7.26 K/uL (4.50-11.00)
[2025-02-24] MEDS: diphenhydrAMINE 25 MG in 0.9 % SODIUM CHLORIDE 100 ml 100 ML 301.5 MG IVPB (22:01)
[2025-02-24 22:03] LABS: Lymphocytes Absolute Auto 4.50 K/uL (0.90-2.90)
[2025-02-24 22:04] LABS: Slide Review Reflex No
[2025-02-24] MEDS: METOCLOPRAMIDE HCL 10 MG in 0.9 % SODIUM CHLORIDE 100 ml 100 ML 306 MG IVPB (22:06)
[2025-02-24 22:18] LABS: PCR FLU A Negative PCR FLU A (Negative); PCR FLU B Negative PCR FLU B (Negative); PCR RSV Negative PCR RSV (Negative); SARS PCR* Negative SARS-CoV-2 (Negative)
[2025-02-24 22:21] LABS: HCG Qualitative Serum* Negative (Negative)
[2025-02-24 22:22] LABS: INR 0.72 (0.91-1.10); Prothrombin Time 10.9 Seconds
[2025-02-24 22:24] LABS: Chloride* 104 mmol/L (96-114)
[2025-02-24 22:25] LABS: Potassium* 3.8 mmol/L (3.6-5.1); Sodium* 136 mmol/L (135-149)
[2025-02-24 22:27] LABS: Blood Urea Nitrogen* 17 mg/dL (5-24); Creatinine* 0.7 mg/dL (0.5-1.5); Est. Creatinine Clearance* 99.63; Estimated Glomerular Filt Rate 118 ml/min
[2025-02-24 22:28] LABS: Anion Gap 8 mEq/L (7-15); Calcium* 9.1 mg/dL (8.4-10.6); Carbon Dioxide* 24 mmol/L (20-32); Glucose* 100 mg/dL (60-115)
--- OUTSIDE RECORDS SUMMARY | 2025-02-24 22:29 | XMS_ITS | Clinical Summary ---
Author Organization [facility] Address [address] [place] [address] Care Team Providers Care Percussion Instrument Tuner Name Role Phone Elsewhere, Pcp Primary Care Provider Unavailabl e Source Comments Patient records contain information from all sites at [facility]. For routine questions regarding patient records, call [phone] during business hours, M-F 8:00 AM - 5:00 PM Central Time. Record requests for emergency care only can be directed to [phone] at any time.[facility] Allergies Active AllergyReactionsCriticalityNoted DateCommentsBee Venom Protein (Honey Bee)Other (see comments)05/01/2014BuspironeHives only, no other systemic symptoms,Hives (Reselect Reaction),Rash11/22/2023Hymenoptera Allergenic Extract Edema (Reselect Reaction)Puayrp7911/12/2006 Medications * This document contains information received from the source organization and may not represent a complete record from that organization. MedicationSigDispense QuantityRefillsLast FilledStart DateEnd DateStatus prenat.vits,emili,vdm-lcap-wyicw tablet Take 1 tablet by mouth daily.10/31/2014ctive hydrOXYzine (Atarax) 25 mg tablet Take 25 mg by mouth every 6 (six) hours as needed for anxiety.Active albuterol 90 mcg/actuation inhaler Inhale 1-2 puffs every 4 (four) hours as needed.01/25/2024ctive diphenhydrAMINE (BenadryL) 25 mg capsule Take 25 mg by mouth every 4 (four) hours as needed.01/19/2022ctive EPINEPHrine 0.3 mg/0.3 mL injection syringe Indications:Allergy Bee Sting Personal HistoryInject 0.3 mL (0.3 mg total) intramuscularly as needed for anaphylaxis. Inject into the thigh. 1 each 5Active meclizine (Antivert) 12.5 mg tablet Take 12.5 mg by mouth 3 (three) times a day as needed for dizziness.Active acetaminophen (TylenoL) 500 mg tablet Take 2 tablets (1,000 mg total) by mouth every 6 (six) hours as needed for mild pain or score 1-3 of 10, moderate pain or score 4-6 of 10 or severe pain or score 7-10 of 10. Alternate every 3 hours with ibuprofen. Do not exceed 4,000 mg or 4 g in 24 hours.5Active ibuprofen 600 mg tablet Take 1 tablet (600 mg total) by mouth every 6 (six) hours as needed for mild pain or score 1-3 of 10, moderate pain or score 4-6 of 10 or severe pain or score 7-10 of 10. Alternate every 3 hours withacetaminophen. 100 tablet 5Active aspirin [address] tablet Take 2 tablets (162 mg total) by mouth daily.5Active metoclopramide (Reglan) 10 mg tablet Take 10 mg by mouth as needed.Active sertraline (Zoloft) 100 mg tablet Take 2 tablets (200 mg total) by mouth daily. 180 tablet 5Active sertraline (Zoloft) 100 mg tablet Take 1.5 tablets (150 mg total) by mouth daily. 135 tablet 5104/01/2024Discontinued Active Problems ProblemNoted DateDiagnosed DateCare And Cmnzynbmh47/27/2025Delivery Vaginal Normal Isucsxrdzxr87/24/2025 Overview (11/08/2024): The patient was admitted to the [facility] for induction of labor for GDMA2. 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 She received her care at [facility]. 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 Patient reports thishappened when walking through [employer]; no trauma or precipitating event. -this reportedly caused cerebellar strokes or TIA -she did see Optho for assessment of papilledema and possible IIH -normotensive in clinic today - growth: EFW 2542 g (5 lb 10 oz) 62%, AC 80% at 34 weeks (10/05/24) [facility] Recommendations: : Routine: Continue care with complex care, next 07/28 Shared care with [facility], next around 32w for delivery planning, scheduled 09/13 Genetics: Declined NIPT offered today; no structural anomalies noted on ultrasound History of vertebral artery dissection: Records have been requested and are scanned in the media tab from [facility] Aspirin 81 mg daily until delivery, [...] at 34w; earlier as indicated Delivery: Location: [place] Timing: Per routine obstetric indication, elective risk reducing 39-40w if not indicated earlier Mode: Per routine indication, no contraindication to vaginal from vertebral artery dissection standpoint at this time Assessment & Plan (10/19/2024 10:32 AM CDT): 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 Patient reports thishappened when walking through [employer]; no trauma or precipitating event. -this reportedly caused cerebellar strokes or TIA -follow up is unclear; she did see Optho for assessment of papilledema and possible IIH -normotensive in clinic today - growth: EFW 2542 g (5 lb 10 oz) 62%, AC 80% at 34 weeks (10/05/24) [facility] Recommendations: : Routine: Continue care with complex care, next 07/28 Shared care with [facility], next around 32w for delivery planning, scheduled 09/13 Genetics: Declined NIPT offered today; no structural anomalies noted on ultrasound History of vertebral artery dissection: Records have been requested and are scanned in the media tab from [facility] Aspirin 81 mg daily until delivery, [...] at 34w; earlier as indicated Delivery: Location: [place] Timing: Per routine obstetric indication, elective risk reducing 39-40w if not indicated earlier Mode: Per routine indication, no contraindication to vaginal from vertebral artery dissection standpoint at this time Assessment & Plan (10/05/2024 2:56 PM CDT): 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 Patient reports thishappened when walking through [employer]; no trauma or precipitating event. -this reportedly caused cerebellar strokes or TIA -follow up is unclear; she did see Optho for assessment of papilledema and possible IIH -normotensive in clinic today [facility] Recommendations: : Routine: Continue care with complex care, next 07/28 Shared care with [facility], next around 32w for delivery planning, scheduled 09/13 Genetics: Declined NIPT offered today; no structural anomalies noted on ultrasound History of vertebral artery dissection: Records have been requested and are scanned in the media tab from [facility] Aspirin 81 mg daily until delivery, [...] at 34w; earlier as indicated Delivery: Location: [place] Timing: Per routine obstetric indication, elective risk reducing 39-40w if not indicated earlier Mode: Per routine indication, no contraindication to vaginal from vertebral artery dissection standpoint at this time Assessment & Plan (07/28/2024 5:57 PM CDT): 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 Patient reports thishappened when walking through [employer]; no trauma or precipitating event. -this reportedly caused cerebellar strokes or TIA -follow up is unclear; she did see Optho for assessment of papilledema and possible IIH -normotensive in clinic today [facility] Recommendations: : Routine: Continue care with complex care, next 07/28 Shared care with [facility], next around 32w for delivery planning, scheduled 09/13 Genetics: Declined NIPT offered today; no structural anomalies noted on ultrasound History of vertebral artery dissection: Records have been requested and are scanned in the media tab from [facility] Aspirin 81 mg daily until delivery, [...] at 34w; earlier as indicated Delivery: Location: [place] Timing: Per routine obstetric indication, elective risk reducing 39-40w if not indicated earlier Mode: Per routine indication, no contraindication to vaginal from vertebral artery dissection standpoint at this time Assessment & Plan (07/28/2024 5:46 PM CDT): -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 Patient reports this happened when walking through [employer]; no trauma or precipitating event. 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 Patient reports this happened when walking through [employer]; no trauma or precipitating event. 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 Patient reports this happened when walking through [employer]; no trauma or precipitating event. -this reportedly caused cerebellar strokes or TIA -follow up is unclear; she did see Optho for assessment of papilledema and possible IIH -has not seen Vascular Med or Neuro at [facility], per chart review, since this event -normotensive in clinic today -plan for [facility] consult to assess for further work-up recommendations and management guidance Herpes Oksernosb80/17/2022 Overview (05/16/2024): -will initiate Valtrex 500 mg [...] prophylaxis. Assessment & Plan (05/16/2024 5:38 PM CARDIOLOGY ASSOCIATE): -will initiate Valtrex 500 mg bid at 36 weeks for prophylaxis. Type O Blood Rhesus Hhkpzbdk49/14/2018 Assessment & Plan (11/01/2024 4:38 PM CDT): [...] weeks Assessment & Plan (05/16/2024 5:38 PM CARDIOLOGY ASSOCIATE): -plan Rhogam Personal History Of Gestational Zbkclsbd18/14/2018 Overview (05/16/2024): -h/o GDM x 2 -self [...] check home blood sugars x 2 weeks; startedon 07/27/24. She will send result in via Portal when completed. Reviewed fasting and three post-prandial values per day. Assessment & Plan (06/22/2024 11:40 AM CDT): -h/o GDM x 2 -self reports that she is pre-diabetic -Hgb A1c ordered with new OB labs--> 5.2% -plan GDM assessment at 24 weeks Assessment & Plan (05/16/2024 5:38 PM CARDIOLOGY ASSOCIATE): -h/o GDM x 2 -self reports that she is pre-diabetic -Hgb A1c ordered with new OB labs -plan GDM assessment at 24 weeks Body Mass Index 45.0 To 49.9 Adult11/26/2017 Overview (05/16/2024): Assessment & Plan (11/01/2024 4:38 [...] weeks Assessment & Plan (05/16/2024 5:38 PM CARDIOLOGY ASSOCIATE): -discussed limiting weight gain to 11-20 pounds -plan serial growth US starting at 28 weeks -plan weekly testing at 34 weeks -delivery timing by 40 weeks Depression Wvwupel7611/26/2017 Overview (05/16/2024): -on Zoloft 150 mg daily [...] check Assessment & Plan (05/16/2024 5:38 PM CARDIOLOGY ASSOCIATE): -on Zoloft 150 mg daily -PHQ-9 was 6 at [facility] -FLORENCIA-7 was 6 at [facility] -continue to follow moods and plan for 2 week PP mood check Resolved Problems ProblemNoted DateDiagnosed DateResolved DatePsychosocial Tjbpbscmbobx01/14/2025 12/27/2024 Overview (12/26/2024): 11/21/24: Older children not currently living with them; CPS currently involved Daughter, age 9, lives with family friend Sons, ages 6 and 2 -2 year old in foster care with paternal grandparents -6 year old lives with his father Bleeding Oevlmkb97/9 Weeks Gestation Ueysrglk09/26/2025 12/26/2024False Labor At Or After 37 Completed Weeks Of Tilrizand25/25/2025 12/26/2024ute Candidiasis Of Vulva And Smgtth31Trichomonas Wfwrgeilzd48 Overview (10/05/2024): -positive on Pap May 2024 [...] both taken their medication Pelvic And Perineal Pain/ Assessment & Plan (10/05/2024 5:36 PM CDT): Right hip and leg pain has improved since stopping work, likely related to and job demands. Pelvic floor physical therapy was discussed to manage pain and improve mobility by identifying muscle tension and providing exercises. - Refer to pelvic floor physical therapy for assessment and management of pelvic pain. Shortness Of Xmghmq17/Diabetes Mellitus Gestational Insulin Hsfufjjesk45/03/202510/ Overview (08/15/2024): -elevated one hour GCT -declined [...] glucose monitoring and fasting goal 70-95. Thrombocytopenia Nkfzbzhrc54 Overview (10/29/2024): -144K at 25 weeks -repeat [...] at 36 weeks, ordered today High Risk Nyrtchrxf91Positive Group B Streptococcus Overview (07/04/2024): -GBS bacteruria >100K on 06/22/24 [...] intrapartum prophylaxis in labor Complete Placenta Previa Without Hemorrhage Second Rlsgytotp27 Overview (10/19/2024): RESOLVED -noted on anatomy US [...] TVUS at 28 and/or 32 weeks Headache Lprdumhzz61 Assessment & Plan (10/19/2024 10:32 AM CDT): [...] vertebral artery dissection; normal findings Deficiency Iron Overview (08/02/2024): Ferritin 24 in first trimester [...] recheck at mid-preg labs Need Vaccine Immunization Nujnpquwy99/ Overview (05/17/2024): Varicella non-immune Consider vaccination post- Assessment & Plan (07/28/2024 2:18 PM CDT): -offer post- Urinary Tract Infection Meqwpbpjg52 Overview (05/16/2024): -diagnosed at outside facility -Rx [...] trimester Assessment & Plan (05/16/2024 5:38 PM CARDIOLOGY ASSOCIATE): -diagnosed at outside facility -Rx Keflex on 05/01/24; per patient, she finished antibiotics on 05/10/24 -will wait until next visit and then repeat urine culture as CASS -plan urine cultures each trimester Obstetric Disorder Personal Gmakmku29 Overview (05/16/2024): -history of shoulder dystocia x [...] shoulder dystocia. The fetus is in the 60thpercentile for weight, normal for gestational diabetes. Induction [...] shoulder dystocia. The fetus is in the 60thpercentile for weight, normal for gestational diabetes. Induction [...] monitoring. Assessment & Plan (05/16/2024 5:38 PM CARDIOLOGY ASSOCIATE): -history of shoulder dystocia x 1 with 4350 gram baby; 2 maneuvers, 1 minute long -history of precipitous labors < 3 hours Ybnjxt03503/06/2024 Overview (05/16/2024): children in Foster Care: CPS involvement. COVID-19 Plvqrxeca86/23//538 Weeks Gestation Dhrychvr98/21/2022 12/03/2021elivery Vaginal Normal Znyubhkvvkt33/18/202203/06/2024 Overview (12/02/2021): The patient was admitted to the [facility] for spontaneous onset of labor. Her [...] floor. She received her care within the [facility]. Complication Morbid Obesity Body Mass Index Greater Than 40 Sgjtocjbi78/16/2022 05/16/2024High Risk Cnaurwkox79 Overview (07/28/2024): Recommendations: : Routine: Continue care with complex care, next 07/28 Shared care with [facility], next around 32w for delivery planning, scheduled 09/13 Genetics: Declined NIPT offered today; no structural anomalies noted on ultrasound History of vertebral artery dissection: Records have been requested and are scanned in the media tab from [facility] Aspirin 81 mg daily until delivery, [...] at 34w; earlier as indicated Delivery: Location: [place] Timing: Per routine obstetric indication, elective risk reducing 39-40w if not indicated earlier Mode: Per routine indication, no contraindication to vaginal from vertebral artery dissection standpoint at this time Assessment & Plan (11/01/2024 4:38 PM CDT): 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 Patient reports thishappened when walking through [employer]; no trauma or precipitating event. -this reportedly caused cerebellar strokes or TIA -she did see Optho for assessment of papilledema and possible IIH -normotensive in clinic today - growth: EFW 2542 g (5 lb 10 oz) 62%, AC 80% at 34 weeks (10/05/24) [facility] Recommendations: : Routine: Continue care with complex care, next 07/28 Shared care with [facility], next around 32w for delivery planning, scheduled 09/13 Genetics: Declined NIPT offered today; no structural anomalies noted on ultrasound History of vertebral artery dissection: Records have been requested and are scanned in the media tab from [facility] Aspirin 81 mg daily until delivery, [...] at 34w; earlier as indicated Delivery: Location: [place] Timing: Per routine obstetric indication, elective risk reducing 39-40w if not indicated earlier Mode: Per routine indication, no contraindication to vaginal from vertebral artery dissection standpoint at this time Assessment & Plan (10/19/2024 10:32 AM CDT): 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 Patient reports thishappened when walking through [employer]; no trauma or precipitating event. -this reportedly caused cerebellar strokes or TIA -follow up is unclear; she did see Optho for assessment of papilledema and possible IIH -normotensive in clinic today - growth: EFW 2542 g (5 lb 10 oz) 62%, AC 80% at 34 weeks (10/05/24) [facility] Recommendations: : Routine: Continue care with complex care, next 07/28 Shared care with [facility], next around 32w for delivery planning, scheduled 09/13 Genetics: Declined NIPT offered today; no structural anomalies noted on ultrasound History of vertebral artery dissection: Records have been requested and are scanned in the media tab from [facility] Aspirin 81 mg daily until delivery, [...] at 34w; earlier as indicated Delivery: Location: [place] Timing: Per routine obstetric indication, elective risk reducing 39-40w if not indicated earlier Mode: Per routine indication, no contraindication to vaginal from vertebral artery dissection standpoint at this time Assessment & Plan (10/05/2024 2:56 PM CDT): 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 Patient reports thishappened when walking through [employer]; no trauma or precipitating event. -this reportedly caused cerebellar strokes or TIA -follow up is unclear; she did see Optho for assessment of papilledema and possible IIH -normotensive in clinic today [facility] Recommendations: : Routine: Continue care with complex care, next 07/28 Shared care with [facility], next around 32w for delivery planning, scheduled 09/13 Genetics: Declined NIPT offered today; no structural anomalies noted on ultrasound History of vertebral artery dissection: Records have been requested and are scanned in the media tab from [facility] Aspirin 81 mg daily until delivery, [...] at 34w; earlier as indicated Delivery: Location: [place] Timing: Per routine obstetric indication, elective risk [...] March 2022; was seen in ED in [place], [place]. Patient reports thishappened when walking through [employer]; no trauma or precipitating event. -this reportedly caused cerebellar strokes or TIA -follow up is unclear; she did see Optho for assessment of papilledema and possible IIH -normotensive in clinic today [facility] Recommendations: : Routine: Continue care with complex care, next 07/28 Shared care with [facility], next around 32w for delivery planning, scheduled 09/13 Genetics: Declined NIPT offered today; no structural anomalies noted on ultrasound History of vertebral artery dissection: Records have been requested and are scanned in the media tab from [facility] Aspirin 81 mg daily until delivery, [...] at 34w; earlier as indicated Delivery: Location: [place] Timing: Per routine obstetric indication, elective risk [...] complete Assessment & Plan (05/16/2024 5:38 PM CARDIOLOGY ASSOCIATE): -declines genetic screening -first trimester anatomy US today with normal, but limited, findings -initial OB labs today -new teaching with RN complete Maternal Care For Disproportion Due To Unusually Large Fetus Single Gestation /06/2024 Overview (11/24/2021): Ultrasound on 09/09/2021 showed growth at the 98th percentile. US 10/18: EFW is 2567 g with growth at the 98th percentile; transverse presentation Growth US scheduled with M on 11/28/2021. She will return later today to recheck position with US and for NST. Abnormal Ultrasound Fafdsocc34 Overview (11/24/2021): Transverse presentation noted on last US. US ordered today to assess presentation, but patient leftprior to US to get her significant other to an appointment and stated that she will return for thislater today. EIF noted on advanced level US. No other soft markers for aneuploidy noted. Maternal Medicinerecommended maternal serum screening. Maternity 21 returned normal. Marginal cord insertion also noted. Cyst Ovarian Lplqqlevl45 Overview (10/26/2021): 11 cm, simple. Will monitor at the time of growth ultrasounds and . Stable on US on 09/09/2021, not visualized on US on 10/21/2021. She is aware of symptoms of torsion and the need to present to the emergency department if she has these. Nowtgnynd41 Overview (09/16/2021): Managed currently with Chad camara, and she will let us know if this is not working well enough for her. Care And Zabsjuxeo95/06/2024 Overview (10/26/2021): OB education complete. Nausea And Sxvyikyh24/11/2021 Overview (08/26/2021): This has resolved. Recommend restarting vitamins. Need Vaccine Immunization Dojwthrzm07/ Overview (05/12/2021): Varicella serology negative. She reports history of immunization and varicella x 2 post vaccination, so she would not need varicella vaccination after delivery. Positive Group B Streptococcus Oeattbsdd24/06/2024 Overview (07/29/2021): Bacteriuria on initial urine culture in . Plan antibiotics in labor. GBS testing not necessary at 36 weeks. Repeat urine culture on 07/23/2021 was negative. Deficiency Vitamin D0Prior Premature Rupture Membrane Personal Ndbmzni09 Overview (05/16/2024): - Her first delivery was [...] at 38 weeks. She did not use [place] or cerclage with her 2nd or 3rd [...] at 38 weeks. She did not use [place] or cerclage with her 2nd or 3rd . Assessment & Plan (05/16/2024 5:38 PM CARDIOLOGY ASSOCIATE): - Her first delivery was at 18 weeks after PPROM - the second was at 36 weeks, and the third at 38 weeks. She did not use [place] or cerclage with her 2nd or 3rd . Incompetent Fqvcih76 Encounters * This document contains information received from the source organization and may not represent a complete record from that organization. DateTypeDepartmentCare FpqkDyrpbhfdqpg04/14/2025 3:00 PM CSTClinical Communication Virtual Review in [place], [place] [address] [place] [address] Pre-visit Lojmrl775Clinical Communication [facility], Third Floor [address] [place] [address] Vanessa Villanueva, RMirna. Ipbtezcslql95/15/2025 1:28 PM CDT - 12/27/2024 11:59 PM CDTHospital Encounter Department of Obstetrics and Gynecology in [place], [place] [address] [place] [phone] Yuliana Moore M.D. Bleeding Vaginal Discharge Disposition: Home or Self Care12/27/2024 11:00 AM CDTPostpartum Visit Department of Obstetrics and Gynecology in [place], [place] [address] [place] [address] Estrella Vera CNM Migraine Headache (Primary Dx); Exam (HCC)12/27/2024 10:00 AM CDTComprehensive Visit Department of Obstetrics and Gynecology in [place], [place] [address] [place] [phone] Malini Logan M.D. Jovita Ochoa M.S., O.T. Weakness Muscle (Primary Dx); Care And Tentdqgxh05/23/2025 11:30 AM CDTPostpartum Visit Department of Obstetrics and Gynecology in [place], [place] [address] [place] [address] Yuliana Moore M.D. Bleeding Vaginal (Primary Dx); Migraine Headache; Depression Anxiety; Depression ; Care And Pomanmsck38/17/2025Clinical Communication Department of Neurology in [place], [place] [address] [place] [address] Reilly Mejia M.D. 5Clinical Communication [facility], [facility], Third Floor [address] [place] [address] Ольга Godwin M.D. 11/29/2024Orders Only Department of Obstetrics and Gynecology in [place], [place] [address] [place] [address] Cydney Don M.D. 11/28/2024 8:52 PM CDT - 11/28/2024 11:44 PM CDTHospital Encounter [facility], [facility], Third Floor [address] [place] [address] Rylie Henderson M.D. Care And Lactating [Z39.1] (Primary Dx); Vertebro Basilar Artery Syndrome Discharge Disposition: Home or Self Care5Clinical Communication Department of Obstetrics and Gynecology in [place], [place] [address] [place] [address] Jeffrey Blake R.N. Dizziness (At 3 weeks PP, she is using 3-4 pads/ day of bright red bleeding. She noted a golf ball size clot. )from Last 3 Months Immunizations ImmunizationAdministration DatesNext Mbm4uKPH (discontinued)01/07/2011, 10/19/2007,08/03/2007DTP07/09/1994,1993,1993,1993HepB Pediatric/Yhylkblpcv40/30/1994,1993,1993Hib (PRP-OMP) (PedvaxHIB) 07/09/1994,1993,1993,1993Influenza, Injectable, Quadrivalent 03/13/2014Influenza, Pmfxyoqwyxz60/28/2022(Deferred: Other - has never had it before and does not want it.),01/25/2018(Deferred: Other)MMR07/09/1994OPV, Rgotzjvdx48/30/1994,1993,1993Rho (D) Immune Globulin (IM only) 11/08/2024,09/27/2024,12/03/2021,09/24/2021,04/22/2021,01/25/2018,02/26/2015, 05/03/2014Tdap09/13/2024,01/25/2018,03/30/2015,01/07/2011VAR11/10/2024, 12/03/2021influenza vaccine quad (FLUZONE/FLUARIX) (6 months and older)(PF) 03/13/2014 Family History Medical HistoryRelationNameCommentsADD / ADHDDaughterAllergiesDaughter Oppositional defiant disorder (ODD)DaughterNo Known ProblemsFatherColon cancer Father's SisterAlzheimer's diseaseMaternal GrandfatherDiabetesMaternal GrandfatherDiabetesMaternal GrandmotherLeukemiaMaternal GrandmotherAsthmaMother Retinal tearMotherpossibleSleep apneaMotherSleep apneaMother's Brother 1Sleep apneaMother's Brother 2Sleep apneaMother's Brother 3Chorioamnionitis Second Trimester Single Gestation (HCC)Other 1Barrett's esophagusOther 2ZachHerniaOther 2ZachDiabetesPaternal GrandfatherBreast cancer (in one breast)Paternal GrandmotherDiabetesPaternal GrandmotherADD / ADHDSister1 sisterAngerSister1 sisterAsthmaSister1 sisterAutism spectrum disorderSister1 sistermild, mostly sensory/social issues.Bipolar disorderSister1 sisterDiabetesSister1 sister Anxiety disorderSon 1WIERICH BELTRÁN ALLISONLearning disabilitiesSon 1WILLIAMS,BB ALLISONPyloric stenosisSon 2WILLIAMS,BOY ALLISONRelationNameStatusCommentsChild Boy April WilliamsAliveDaughterAliveFatherDeceased (Age 50-55)limited infosmokerpossible bipolar disorderFather's SisterDeceasedMaternal Grandfather AliveMaternal GrandmotherAliveMotherAliveMother's Brother 1AliveMother's Brother 2AliveMother's Brother 3AliveOther 1Fetus - Spontaneous AbortionOther 2Zach AlivePaternal GrandfatherAlivePaternal GrandmotherAliveSister1 sisterAliveSon 1 OSCAR,BB ALLISONAliveSon 2WILLIA,BOY ALLISONAlive Social History Tobacco UseTypesPacks/DayYears UsedDateSmoking Tobacco: NeverSmokeless [...] your home?No11/07/2024Postpartum DepressionAnswerDate RecordedPHQ-9 Total Score (max 27)7104/01/2024Housing StabilityAnswerDate RecordedWhat is your living situation today?I have a steady place to live11/07/2024EducationAnswerDate RecordedWhat is the highest level of school you have completed or the highest degree you have received?Associate degree: occupational, technical, or vocational program 2CommentsNoSex and Gender InformationValueDate RecordedSex Assigned at OmyobMyalvq01/12/2019 11:02 AM CDTLegal KzoWbrwec28/02/2017 7:46 PM CSTGender EgdusrbtQxmbhm49/12/2019 11:02 AM CDTSexual OrientationStraight 05/24/2018 11:02 AM CDTOccupationIndustryJob Start DateJob End DateFast Food EmployeeNot on fileNot on fileNot on fileTristar WelderNot on fileNot on fileNot on file Last Filed Vital Signs Vital SignReadingTime TakenCommentsBlood Wpjytptt811/7611 8:41 AM CARDIOLOGY ASSOCIATE Iujmx347001/30/2025 8:41 AM GSMGagpcwwhawq60.8 ??C (98.2 ??F)12/27/2024 11:10 AM CDTRespiratory Zmee922611/10/2024 2:15 PM CDTOxygen Wnffebltfx72%12/27/2024 11:10 AM CDTInhaled Oxygen Concentration--Qmhlfx049 kg (306 lb)01/30/2025 8:41 AM CARDIOLOGY ASSOCIATE Pigohq642.7 cm (5' 4.06)01/30/2025 8:41 AM CSTBody Mass Index52.43104/01/2024 8:41 AM CARDIOLOGY ASSOCIATE Plan of Treatment Health MaintenanceDue DateLast DoneCommentsIPV Vaccines (4 of 4 - 4-dose series) , 1993, 1993COVID-19 Vaccine ( season)/, 04/04/2020Influenza Vaccine (#1)2024 03/13/2014, 03/13/2014Cervical/Vaginal Cancer Qawvcinec25, 05/16/2024, 05/12/2021, Additional history existsDTaP,Tdap,and Td Vaccines (9 - Td or Tdap)507/04/2024, 01/25/2018, 03/30/2015, Additional history existsHepatitis B KdhkcuadJxanyhzup31/30/1994, 1993, 1993HPV ShuaqkebMuxejcnzp48/26/2011, 10/19/2007, 08/03/2007HIV ScreeningCompleted 05/16/2024, 04/22/2021, 08/20/2017, Additional history existsHepatitis C WhrwwqbjnTajctrfmo89/04/2025, 04/22/2021Varicella VyvusihvQsyfpqigy20/29/2025, 2Depression Screening (Annual PHQ-2)Daruczzri57/18/2025, 12/05/2024 Pneumococcal vaccine (0-49 years)Aged OutNo longer eligible based on patient's age to complete this topic Procedures Procedure NamePriorityDate/TimeAssociated DiagnosisCommentsUS OB TRANSVAGINALRAD - Routine (most inpatients and all outpatients)12/27/2024 2:52 PM CDT Bleeding Vaginal GLUCOSE, FASTING, S/TIvepemj24/15/2025 12:38 PM CDT Care And Lactating CBC WITHOUT DIFFERENTIAL, UDdlbnnh35/15/2025 12:38 PM CDT Bleeding Vaginal US OB LIMITEDRAD - Routine (most inpatients and all outpatients)11/28/2024 11:39 PM CDT ANTIBODY NZIZFLXNDJSCQTScovons91/16/2025 10:06 PM CDT TYPE AND YLZWGIEhxpkbi82/16/2025 10:06 PM CDT CBC WITHOUT DIFFERENTIAL, BSTAT11/28/2024 10:06 PM CDT HCV AB SCRN , XTufweko91/04/2025 4:25 PM CARDIOLOGY ASSOCIATE High Risk (HCC) HIV-1/-2 AG AND AB SCRN, XHXAJTFmckwrq33/04/2025 4:25 PM CARDIOLOGY ASSOCIATE High Risk (HCC) HPV WITH GENOTYPING, PCR, UAVWIZFRTrwinvq68/04/2025 3:52 PM CARDIOLOGY ASSOCIATE from Last 3 Months or Most Recently Relevant to Health Maintenance Results * US OB Transvaginal (12/27/2024 2:52 PM CDT)Anatomical RegionLateralityModality Pelvis, Ultrasound OB RST LOS, Ultrasound ARZ LOSN/AUltrasoundSpecimen (Source)Anatomical Location / LateralityCollection Method / VolumeCollection TimeReceived Time12/27/2024 2:16 PM CDT Narrative 12/27/2024 3:43 PM CDT Exam Type ========= OB Limited for RPOC, OB Transvaginal Indication ======== R/O Retained Products of Conception ; Delivery marked by avulsed cord; bleeding managed with oral Cytotec Method ====== Transvaginal ultrasound examination Uterus ====== Normal. Size 8.7 cm x 8.7 cm x 5.4 cm. 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 Position: retroverted Endometrial thickness, total 0.9 mm [...] offree fluid adjacent to the right ovary. Authorizing ProviderResult TypeResult StatusYvtahir Mckenzie M.D.[facility] [place] OB US PROCEDURESFinal Result * (ABNORMAL) CBC without Differential (12/27/2024 12:38 PM CDT) Only the most recent of2 resultswithin the time period is included. ComponentValueRef RangeTest MethodAnalysis TimePerformed AtPathologist Signature Mzptfkwqdr48.111.6 - 15.0 g/dL12/27/2024 1:11 PM XNFHVJSrejsicgvs17.835.5 - 44.9 %12/27/2024 1:11 PM CDTDTLErythrocytes4.213.92 - 5.13 x10(12)/L10/ 1:11 PM OITIHRZVN62.278.2 - 97.9 fL12/27/2024 1:11 PM CDTDTLRBC Distrib Width11.5(L) 12.2 - 16.1 %12/27/2024 1:11 PM CDTDTLPlatelet Lmscz258025 - 371 x10(9)/L 12/27/2024 1:11 PM CDTDTLLeukocytes6.03.4 - 9.6 x10(9)/L1 1:11 PM CDT DTLSpecimen (Source)Anatomical Location / LateralityCollection Method / Volume Collection TimeReceived TimeBlood (Blood, Venous)12/27/2024 12:38 PM CDT 12/27/2024 1:03 PM CDT Narrative Authorizing ProviderResult TypeResult StatusYuliana Mckenzie M.D.LAB BLOOD ADD-ONFinal ResultPerforming OrganizationAddressCity/State/ZIP CodePhone Number [facility] [address] [place] [address], [facility] [address] [place] [address] * (ABNORMAL) Glucose, Fasting (12/27/2024 12:38 PM CDT)ComponentValueRef Range Test MethodAnalysis TimePerformed AtPathologist SignatureGlucose, P111(H)70 - 100 mg/dL12/27/2024 1:27 PM CDTDTLLast Cqabfo9wx02/15/2025 12:52 PM CDTDTL Specimen (Source)Anatomical Location / LateralityCollection Method / Volume Collection TimeReceived TimeBlood (Blood, Venous)12/27/2024 12:38 PM CDT 12/27/2024 12:52 PM CDT Narrative Authorizing ProviderResult TypeResult StatusEstrella Vera CNMLAB BLOOD NON ADD-ONFinal ResultPerforming OrganizationAddressCity/State/ZIP CodePhone Number [facility] [address] [place] [address], [facility] [address] [place] [address] * US OB Limited (11/28/2024 11:39 PM CDT)Anatomical RegionLateralityModality Ultrasound OB RST LOS, Ultrasound ARZ LOS, Ultrasound FLA LOS, Ultrasound ARZ LOSN/AUltrasoundSpecimen (Source)Anatomical Location / LateralityCollection Method / VolumeCollection TimeReceived Time Narrative 11/28/2024 11:39 PM CDT Hypoechoic area within the lower uterine segment without blood flow, consistent with clot Authorizing ProviderResult TypeResult StatusJd Corrales M.D.IMG OB US PROCEDURESFinal Result * Antibody Identification, Erythrocytes (11/28/2024 10:06 PM CDT)ComponentValue Ref RangeTest MethodAnalysis TimePerformed AtPathologist SignatureAntibody IdentificationPassively fxrnukip64/16/2025 11:44 PM CDTDTLComment:anti-D Specimen (Source)Anatomical Location / LateralityCollection Method / Volume Collection TimeReceived Time11/28/2024 10:06 PM CDT11/28/2024 10:13 PM CDT Narrative [facility] - 11/28/2024 11:44 PM CDT Specimen Information: Specimen ID: [id number] Specimen Collection Start Date: 11/28/2024 10:06 PM Specimen Received Date: 11/28/2024 10:13 PM Specimen ID: [id number] Specimen Collection Start Date: 11/28/2024 10:06 PM Specimen Received Date: 11/28/2024 10:13 PM Authorizing ProviderResult TypeResult StatusNelida Howard M.D.LAB BLOOD BANK TEST ORDERABLESFinal ResultPerforming OrganizationAddressCity/State/ZIP CodePhone Number [facility] [address] [place] [address], [facility] DTL [facility] [address] [place] [address] * Type and Screen (with Reflex Antibody ID) (11/28/2024 10:06 PM CDT)Component ValueRef RangeTest MethodAnalysis TimePerformed AtPathologist SignatureABORhO NegNot sjwkytakfw63/16/2025 11:28 PM CDTETRMAntibody HtanhkHXVIDTGD30/16/2025 11:14 PM CDTETRMComment: See antibody identification test. Result canceled by the ancillary. Type & Screen Aajgrjiddf42/19/2025 23:59011/28/2024 11:28 PM CDTETRMTesting LocationRochester DEFAULT 11/28/2024 10:13 PM CDTETRMSpecimen (Source)Anatomical Location / Laterality Collection Method / VolumeCollection TimeReceived TimeBlood (Blood, Venous) 11/28/2024 10:06 PM CDT11/28/2024 10:13 PM CDT Narrative Authorizing ProviderResult TypeResult StatusNelida Howard M.D.LAB BLOOD BANK TEST ORDERABLESFinal ResultPerforming OrganizationAddressCity/State/ZIP CodePhone Number [facility] [address] [place] [address], [facility] [address] [place] [address] * Hepatitis C Virus Antibody Screen (05/16/2024 4:25 PM CARDIOLOGY ASSOCIATE)Component ValueRef RangeTest MethodAnalysis TimePerformed AtPathologist SignatureHCV Ab Scrn , AKihhiahsXvvbnses79/04/2025 10:24 PM CSTSDSCComment: Consumption of high-dose biotin supplement within 12 hours of blood collection for this test can cause false-negative results. Specimen (Source)Anatomical Location / LateralityCollection Method / Volume Collection TimeReceived TimeBlood (Blood, Venous)05/16/2024 4:25 PM CARDIOLOGY ASSOCIATE 05/16/2024 8:02 PM CARDIOLOGY ASSOCIATE Narrative Authorizing ProviderResult TypeResult StatusEstrella Vera CNMLAB MICROBIOLOGY - BLOOD ORDERABLESFinal ResultPerforming OrganizationAddress City/State/ZIP CodePhone Number [facility] [address] [place] [address] [facility] [address] [place] [address] * HIV-1/-2 Ag and Ab Scrn, Plasma (05/16/2024 4:25 PM CARDIOLOGY ASSOCIATE)Component ValueRef RangeTest MethodAnalysis TimePerformed AtPathologist Signature HIV-1/-2 Ag and Ab Scrn, IXdelhotzXghlkkqx69/04/2025 10:08 PM CSTSDSC Comment: Negative result does not rule out HIV infection. If exposure to HIV infection occurred <14 days ago, contact the laboratory to request addition of HIV-1/HIV-2 RNA detection , Plasma (HPP12). Specimen (Source)Anatomical Location / LateralityCollection Method / Volume Collection TimeReceived TimeBlood (Blood, Venous)05/16/2024 4:25 PM CARDIOLOGY ASSOCIATE 05/16/2024 8:02 PM CARDIOLOGY ASSOCIATE Narrative Authorizing ProviderResult TypeResult StatusKavonderekning Donahue Chuy CNAB MICROBIOLOGY - BLOOD ORDERABLESFinal ResultPerforming OrganizationAddress [facility] CodePhone Number [facility] [address] [place] [address] [facility] [address] [place] [address] * HPV with Genotyping, PCR, ThinPrep (05/16/2024 3:52 PM CARDIOLOGY ASSOCIATE)ComponentValueRef RangeTest MethodAnalysis TimePerformed AtPathologist SignatureSpecimen Source Cervix/Efrtzcohpw85/06/2025 6:59 PM CSTSDSCHPV High Risk type 16, PCRNegative Bpbcaosj06/06/2025 6:59 PM CSTSDSCHPV High Risk type 18, PCRNegativeNegative 05/18/2024 6:59 PM CSTSDSCHPV other High Risk types, PCRNegativeNegative 05/18/2024 6:59 PM CSTSDSCComment: The following Other High Risk HPV types were not detected: 31, 33, 35, 39, 45, 51, 52, 56, 58, 59, 66, and 68. This test was ordered in the context of a [facility] PSYCHIATRY ADULT PHYSICIAN Cytology case; this result should be interpreted within the context of the PSYCHIATRY ADULT PHYSICIAN cytology report. ----ADDITIONAL INFORMATION---- Testing was performed using the jim HPV assay ([employer] This report is intended for use in clinical monitoring and management of patients. It is not intended for use in medical-legal applications. Specimen (Source)Anatomical Location / LateralityCollection Method / Volume Collection TimeReceived Time05/16/2024 3:52 PM CST05/16/2024 7:47 PM CARDIOLOGY ASSOCIATE Narrative Authorizing ProviderResult TypeResult StatusEstrella Vera CNMLAB MICROBIOLOGY - GENERAL ORDERABLESFinal ResultPerforming OrganizationAddress [facility]/ZIP CodePhone Number [facility] [address] [place] [address] [place] [address] [place] [address] from Last 3 Months or Most Recently Relevant to Health Maintenance Insurance Advance Directives For more information, please contact: [phone] * Full Code (Latest Code Status on File) Date ActivatedDate InactivatedComments11/08/2024 9:28 AM11/10/2024 6:00 PMQuestion AnswerCommentsFull Code:* Not Discussed Due to:* Not medically appropriate Care Teams Team MemberRelationshipSpecialtyStart DateEnd Date Elsewhere, Pcp PCP - General04/03/19 Ainsley 05/16/24
--- OUTSIDE RECORDS SUMMARY | 2025-02-24 22:29 | XMS_ITS | Encounter Summary ---
Author Organization [facility] Address [address] [place] [address] Care Team Providers Care Sports Agent Name Role Phone Elsewhere, Pcp Primary Care Provider Unavailabl e Reason for Visit * ReasonOnset RcnyAxvtgmgwYhhemhycnhu89/01/2025 Encounter Details DateTypeDepartmentCare Team (Latest Contact Info)Ssvllqpmsbb91/01/2025linical Communication [facility], Third Floor [address] [place] [address] Vanessa Villanueva RAshiaNAshia [address] [place] [phone] Menorrhagia Social History Tobacco UseTypesPacks/DayYears UsedDateSmoking Tobacco: NeverSmokeless Tobacco: NeverAlcohol UseStandard Drinks/WeekCommentsNot Currently0 (1 standard drink = 0.6 oz pure alcohol)Not in pregnancyHumiliation, Afraid, Rape, and Kick questionnaireAnswerDate RecordedWithin the last year, have you been afraid of your partner or ex-partner?No11/07/2024Within the last year, have you been humiliated or emotionally abused in other ways by your partner or ex-partner?No 11/07/2024Within the last year, have you been kicked, [...] 2CommentsNoSex and Gender InformationValueDate RecordedSex Assigned at LquddVlivuy38/12/2019 11:02 AM CDTLegal LcuXymwbz60/02/2017 7:46 PM CSTGender YhxwgryzVulnkp47/12/2019 11:02 AM CDTSexual OrientationStraight 05/24/2018 11:02 AM CDTOccupationIndustryJob Start DateJob End DateFast Food EmployeeNot on fileNot on fileNot on fileTristar WelderNot on fileNot on fileNot on filedocumented as of this encounter Miscellaneous Notes * Telephone Encounter - Vanessa Villanueva R.N. - 01/13/2025 6:35 PM CDT Pt calling [...] documented in this encounter Plan of Treatment Not on file documented as of this encounter Visit Diagnoses Not on filedocumented in this encounter Additional Health Concerns AssessmentNoted TimePHQ-9 Depression Total Score: 11:10 AM CDT documented as of this encounter Care Teams Team MemberRelationshipSpecialtyStart DateEnd Date Elsewhere, Pcp PCP - General04/03/19 Ainsley 05/16/24documented as of this encounter
--- OUTSIDE RECORDS SUMMARY | 2025-02-24 22:29 | XMS_ITS | Clinical Summary ---
Author Organization [employer] [facility] Address [address] [place] [address] Care Team Providers Care New Business Clerk Name Role Phone Aleida Mueller MD Primary Care Provider [phone] Allergies Active AllergyReactionsCriticalityNoted DateCommentsHymenoptera Allergenic MbjeztdSqisyMhbecm63/31/2007BuspironeRash,Hives11/22/2023Venom-Honey BeeOther - Describe In Comment Field05/01/2014Venom-WaspOther - Describe In Comment Field Lkkgjt6111/12/2006 Medications MedicationSigDispense QuantityRefillsLast FilledStart DateEnd DateStatus EPINEPHrine (EPIPEN) 0.3 mg/0.3 mL auto-injector Indications:Allergic reaction, initial encounterInject 0.3 mg (1 Pen) intramuscular each time if needed for Allergic Reaction. 2 Each ctive sertraline (Zoloft) 100 mg tablet Indications:AnxietyTake 1.5 Tablets (150 mg) by mouth once daily. 135 Tablet ctive valACYclovir (Valtrex) 500 mg tablet Take 500 mg by mouth two times daily.Active hydrOXYzine HCL (ATARAX) 25 mg tablet Indications:AnxietyTake 1 Tablet (25 mg) by mouth every 6 hours if needed for Anxiety. 25 Tablet 12/15/2023ctive ondansetron (ZOFRAN ODT) 4 mg disintegrating tablet Indications:Viral gastroenteritisPlace 2 Tablets (8 mg) on the tongue every 8 hours if needed for Nausea/Vomiting. 30 Tablet 12/15/2023ctive albuterol HFA (PRO-AIR; VENTOLIN; PROVENTIL) 90 mcg/actuation inhaler Indications:Cough, unspecified type,WheezingInhale 1-2 Puffs by mouth every 4 hours if needed for Shortness Of Breath or Wheezing. 1 Each 4Active hydrocortisone 1 % cream Indications:HivesApply topically to affected area(s) 2 times daily if needed for Itching. 30 g 4Active meclizine (ANTIVERT) 25 mg tablet Indications:Dizziness,VertigoTake 1 Tablet (25 mg) by mouth 3 times daily if needed for Vertigo. 30 Tablet 4Active metoclopramide (REGLAN) 5 mg tablet Indications:First trimester (HC)Take 1 Tablet (5 mg) by mouth four times daily before meals and at bedtime. 120 Tablet 5Active PNV Comb.Rm47-Yjlc,Carbonyl-FA (PNV 29-1) 29 mg iron- 1 mg tab Indications:First trimester (HC)Take 1 Tablet by mouth once daily. 90 Tablet 5Active aspirin enteric coated 81 mg tablet Take 81 mg by mouth.Active triamcinolone 0.5 % ointment Indications:Insect bite of right upper arm, initial encounterApply topically to affected area(s) three times daily. 15 g 5Active pseudoephedrine (SUDAFED) 30 mg tablet Indications:Right acute serous otitis media, recurrence not specifiedTake 2 Tablets (60 mg) by mouth every 6 hours if needed for Nasal Congestion. 30 Tablet 5Active Active Problems ProblemNoted DateDiagnosed DatePrenatal care, subsequent in first vggownnug88/11/2025Situational amlbys0003/27/2024 Overview (03/27/2024): children in Foster Care: CPS involvement. 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 Kamobarec26/17/2022 Overview (01/29/2022): Managed currently with Chad camara, and she will let us know if this is not working well enough for her. Herpes ouprzdotf11/17/2022 Overview (01/29/2022): No outbreaks since stopping prophylaxis. Valtrex 500 mg bid restarted at 36 weeks for prophylaxis. Vitamin D qydcsrgsdhzzu32/29/2019Obesity, Class III, BMI 40-49.9 (morbid obesity)04/12/2018Major ghxhofkeic24/29/3873Kkxpcjn35/23/2015 Resolved Problems ProblemNoted DateDiagnosed DateResolved DateBilateral wazpilnvn33/17/2022 10/11/2023Influenza due to influenza A virusSevere sepsis isease due to severe acute respiratory syndrome coronavirus 2 (SARS-CoV-2)Encounter for full-term uncomplicated delivery Overview (01/29/2022): OB education complete. The patient was admitted to the [facility] for spontaneous onset of labor. [...] floor. She received her care within the [facility]. Large fetus causing izzbmqtkpvmjt66 Overview (01/29/2022): Ultrasound on 09/09/2021 showed growth at the 98th percentile. US 10/18: EFW is 2567 g with growth at the 98th percentile; transverse presentation Growth US scheduled with [facility] on 11/28/2021. She will return later today to recheck position with US and for NST. Abnormal obstetric ultrasound scan Overview (01/29/2022): Transverse presentation noted on last [...] Marginal cord insertion also noted. complication before birth Overview (01/29/2022): 11 cm, simple. Will monitor at the time of growth ultrasounds and . Stable on US on 09/09/2021, not visualized on US on 10/21/2021. She is aware of symptoms of torsion and the need to present to the emergency department if she has these. Strain of right asywqwau10438 weeks gestation of Obesities, spdanb61Late care Fetal iarvblciwj52Rh negative status during zbzyheraz05History of gestational diabetes mellitus (GDM)Cervical incompetence during in second fevfqfilh74 Overview (12/05/2014): followed by [facility] 05/22/2015 Supervision of other normal beznvetrm80 Overview (12/05/2014): second EDC 05/22/2015 Managed by Cachorro Merino: Dr. Bhatt History of cervical incompetence Znhwcyamp87Major depressive disorder, single episode, shycswjbhlg64Other malaise and volsjrl72 Xnogtlhj79 Encounters DateTypeDepartmentCare OdveNpyrrfhgdfw92/13/2025Office Visit [facility] [place] [address] [place] [address] La Tello MD 01/07/2025 11:12 PM CDT - 01/07/2025 11:40 PM CDTEmergency [facility] [address] [place] [address] North Rodriguez MD Right acute serous otitis media, recurrence not specified (Primary Dx) Discharge Disposition: Home Self Care01/07/20251916Chnvmc54/24/2025Telephone [facility] [address] [place] [address] Annette Bailey NP Wiskpes2101/04/2025 7:35 PM CDTOffice Visit [facility] [address] [place] [address] Annette Bailey NP Throat Pain/problem; Headache; Ear Pain/problem (Bilateral ear pain); Cough (Dry cough starting today.)01/04/2025Travelfrom Last 3 Months Immunizations ImmunizationAdministration DatesNext DueCOVID-19 vaccine (Moderna 100mcg/0.5mL) MILA, MDV05/01/2020,1DTP07/09/1994,1993,1993,1993HIB PRP-OMP (PedvaxHIB)07/09/1994,1993,1993,1993Hepatitis B (Peds) 1993,1993,1993Human Papilloma Virus Kcbwboj1401/07/2011, 10/19/2007,08/03/2007Influenza Virus, Totkkiwgxgf42/13/2018(Deferred: Patient Refused)Influenza, CGP473MMR07/09/1994Oral Polio Pijixwx9812/12/1993, 1993,1993Tdap103/27/2017,03/30/2015,01/07/2011Varicella Vaccine 12/03/2021 Family History Medical HistoryRelationNameCommentsDiabetesMaternal GrandfatherDiabetesMaternal GrandmotherLeukemiaMaternal GrandmotherAsthmaMotherDiabetesPaternal Grandfather DiabetesPaternal GrandmotherPsychiatric illnessSister 2bipolar, ADHDRelationName StatusCommentsDaughterAliveFatherAliveMaternal GrandfatherMaternal Grandmother MotherAlivePaternal GrandfatherPaternal GrandmotherSister 1AliveSister 2 Social History Tobacco UseTypesPacks/DayYears UsedDateSmoking Tobacco: Passive Smoke Exposure - Never SmokerSmokeless Tobacco: Never Tobacco Cessation:Counseling Given: Yes Alcohol UseStandard Drinks/WeekCommentsNot Currently0 (1 standard drink = 0.6 oz pure alcohol)PHQ-2AnswerDate RecordedPHQ-2 TOTAL ADAJZ743Social ConnectionsAnswerDate RecordedDo you often feel lonely or isolated from those around you?Financial Resource StrainAnswerDate RecordedDifficulty of Paying Living Jhrqgvpl571/10/2025Difficulty of Paying Living ExpensesNot on file 10/22/2024Food InsecurityAnswerDate RecordedDo you worry your food will run out before you are able to buy more?Transportation NeedsAnswerDate RecordedDoes lack of transportation keep you from medical appointments?1 10/22/2024Does lack of transportation keep you from work, meetings or getting things that you need?Housing StabilityAnswerDate RecordedWhat is your housing situation today?Interpersonal SafetyAnswerDate RecordedAre you being hit, kicked, pushed or yelled at (see row info)?No01/07/2025 Interpersonal Safety Abuse 12 - 18Not on file01/07/2025Interpersonal Safety Ambulatory VulnerabilityNot on file01/07/2025UtilitiesAnswerDate RecordedDo you have trouble paying for utilities (for example, heat, electricity, water, phone)?CommentsNoSex and Gender InformationValueDate Recorded Sex Assigned at BirthNot on fileLegal RorFzqapx45/14/2013 5:23 AM CSTGender IdentityNot on fileSexual OrientationNot on fileOccupationIndustryJob Start Date Job End DateRCA group homeNot on fileNot on fileNot on fileNot on fileNot on fileNot on fileNot on file Obstetrics History GravidaParaTermPretermABIABSABEctopicMultipleLivingLive [id number] OutcomeGATotal LaborLabor/2nd/6iuMbzfgyBbhJtrkDfjvHBQIfrN8M1VkruPwpb60/19/2015 WYH62q0sKCTLQUNKQOGAltcb DemiseBirth Comments:cervical incompetance, non-viable fetus04/26/20158577Lvtglhw77g9p3.49 kg (7 lb 11 oz)FVagLivingBirth Comments:PPROM, GDM04/12/20182178Jseh13i5l6i 25m/0h 11m4.48 kg (9 lb 14 oz)JZhpCjutdz63ZABXAWLE,BB ALLISONDelivery Location:[facility]2021Term 38w0d4.39 kg (9 lb 11 oz)VagLivingGravidaCommentscervical incompetence @ 17 weeks with first preg resulting in loss Last Filed Vital Signs Vital SignReadingTime TakenCommentsBlood Zksmoasd749/801 11:16 PM CDT Idzdj366101/07/2025 11:16 PM OWOHmzhsoyyztz87 ??C (98.6 ??F)01/07/2025 11:16 PM CDTRespiratory Jbvw4754 11:16 PM CDTOxygen Ginizanukk85%01/07/2025 11:16 PM CDTInhaled Oxygen Concentration--Yhpzao242.9 kg (304 lb)01/07/2025 11:16 PM USTGzstcg808.6 cm (5' 4)01/07/2025 11:16 PM CDTBody Mass Index52.181 11:16 PM CDT Plan of Treatment Health MaintenanceDue DateLast DoneCommentsCOVID-19 vaccine series ( season)/, 04/04/2020Influenza Vaccine (#1)2024 03/13/2014MI (ht and wt on same day) for age 18+/11/2023, 10/11/2023, 02/11/2022, Additional history existsDepression screening for age 12+6006/07/2024, 05/09/2024, 04/05/2024, Additional history existsPap test for age 21-650803/06/2024 (Verified in Care Everywhere or Patient Record), 05/12/2021 (Verified in Care Everywhereor Patient Record), 03/13/2014 Tetanus lswvgov29, 03/30/2015, 01/07/2011Hepatitis B series for 19+Olqtcjyjp55/30/1994, 1993, 1993HPV series for age 9-45 Vomcmiaie15/26/2011, 10/19/2007, 08/03/2007Hepatitis C screening for age 18-79 Hxzkeovph58/19/2014HIV for age 15-60Yhoqumyoe99/30/2014, 05/31/2013Pneumococcal series for age 6-49Aged OutNo longer eligible based on patient's age to complete this topic Procedures Procedure NamePriorityDate/TimeAssociated DiagnosisCommentsSTREP A PCRSTAT 01/04/2025 7:49 PM CDT Sore throat THROAT RAPID STREP A WITH FVYOMUZXWJ60/23/2025 7:49 PM CDT Sore throat ANTI HIV 1/5Umhfuos10/30/2014 12:18 PM AUTOMATIC LINE SET UP MECHANIC Supervision of other normal (HC) 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 TICK[employer] SALES THIN PREP PAP SCREEN ETELEARdjuhqp01/30/2014 11:57 AM AUTOMATIC LINE SET UP MECHANIC Screening for malignant neoplasm of the cervix ANTI HZCJecoaky62/19/2014 12:23 PM CDT Screening for STDs (sexually transmitted diseases) from Last 3 Months or Most Recently Relevant to Health Maintenance Results * STREP A PCR (01/04/2025 7:49 PM CDT)ComponentValueRef RangeTest MethodAnalysis TimePerformed AtPathologist SignatureGROUP A JWJOVZxtvratv48/23/2025 8:39 PM [facility] LABORATORYSpecimen (Source)Anatomical Location / LateralityCollection Method / VolumeCollection TimeReceived TimeThroatSPECIMEN FROM THROAT / UnknownNon-Blood / Wcfmlov7701/04/2025 7:49 PM CDT1 8:10 PM CDT Narrative Authorizing ProviderResult TypeResult StatusAnnette Bailey NPMICROBIOLOGYFinal ResultPerforming OrganizationAddressCity/State/ZIP CodePhone Number [facility] [address] [place] [address] * THROAT RAPID STREP A WITH REFLEX (01/04/2025 7:49 PM CDT)ComponentValueRef RangeTest MethodAnalysis TimePerformed AtPathologist SignatureSTREP A ANTIGEN Ywkkbxyt04/23/2025 8:10 PM [facility] LABORATORYComment:PCR to follow.Specimen (Source)Anatomical Location / LateralityCollection Method / VolumeCollection TimeReceived TimeThroatSPECIMEN FROM THROAT / UnknownNon- Blood / Hepzuzz8701/04/2025 7:49 PM CDT1 7:57 PM CDT Narrative Authorizing ProviderResult TypeResult StatusAnnette Bailey NPMICROBIOLOGYFinal ResultPerforming OrganizationAddressCity/State/ZIP CodePhone Number [facility] [address] [place] [address] * ANTI HIV 1/2 [88475.0] (03/13/2014 12:18 PM AUTOMATIC LINE SET UP MECHANIC)ComponentValueRef RangeTest MethodAnalysis TimePerformed AtPathologist SignatureHIV-1/HIV-2 ANTIBODY Hnb-LiglnpumMht-Coaqhzhi44/30/2014 8:59 PM [facility]ST[facility] LABORATORYSpecimen (Source)Anatomical Location / LateralityCollection Method / VolumeCollection TimeReceived TimeBlood specimen (specimen)BLOOD SPECIMEN / UnknownVenipuncture / Qusmuvw4803/13/2014 12:18 PM CST03/13/2014 12:19 PM AUTOMATIC LINE SET UP MECHANIC Narrative [facility] - 03/13/2014 8:59 PM AUTOMATIC LINE SET UP MECHANIC HIV-1 p24 and HIV-1/HIV-2 Ab not detected Authorizing ProviderResult TypeResult StatusSigrid Eden DALYEND OUTSFinal ResultPerforming OrganizationAddressCity/State/ZIP CodePhone Number [facility] [address] [place] [address], [place] * SUPERVISOR TICK[employer] SALES THIN PREP PAP SCREEN IMAGED (03/13/2014 11:57 AM AUTOMATIC LINE SET UP MECHANIC)ComponentValueRef RangeTest MethodAnalysis TimePerformed AtPathologist SignatureGYN CYTOLOGYSee Anatomic Pathology case03/18/2014 12:04 PM [facility]ST[facility] LABORATORYSpecimen (Source)Anatomical Location / LateralityCollection Method / VolumeCollection TimeReceived TimeSpecimen (specimen) (Cervical/Vaginal)Non- Blood / Vjrggpt5003/13/2014 11:57 AM CST03/13/2014 11:57 AM AUTOMATIC LINE SET UP MECHANIC Narrative Authorizing ProviderResult TypeResult StatusSigrid Eden Mueller MD PATHOLOGY/CYTOLOGYFinal ResultPerforming OrganizationAddressCity/State/ZIP Code Phone Number [facility] [address] [place] [address], [place] * ANTI HCV (05/31/2013 12:23 PM CDT)ComponentValueRef RangeTest MethodAnalysis TimePerformed AtPathologist SignatureANTI HCVNon-reactiveABBOTT L[facility]. [facility] HOSPITALSpecimen (Source)Anatomical Location / LateralityCollection Method / VolumeCollection TimeReceived TimeBlood specimen (specimen)BLOOD SPECIMEN / Wymxplr5605/31/2013 12:23 PM CDT05/31/2013 12:13 PM CDT Narrative Authorizing ProviderResult TypeResult StatusJennning Hernandez GEOVANY OUTSFinal ResultPerforming OrganizationAddressCity/State/ZIP CodePhone Number [facility] INTERNAL [address]IP [address] [place] [phone] from Last 3 Months or Most Recently Relevant to Health Maintenance Insurance * Guarantor: April Alcantarunt TypeRelation to PatientDate of PhoneBilling AddressPersonal/KbayzcNweu1995 [address] [place] [address] * Guarantor: April Alcantarunt TypeRelation to PatientDate of PhoneBilling AddressPersonal/YumiwhXxui1995 [address] [place] [address] * Guarantor: April Alcantar TypeRelation to PatientDate of PhoneBilling AddressWorkers RlmfOkhj1995 [address] [place] [address] * Guarantor: April Alcantarunt TypeRelation to PatientDate of PhoneBilling AddressWorkers AmqgHhem1995 [address] [place] [address] * Guarantor: April Alcantarunt TypeRelation to PatientDate of PhoneBilling AddressWorkers WeauAwtg1995 [address] [place] [address] * Guarantor: Nuha Euceda TypeRelation to PatientDate of BirthPhone Billing AddressPersonal/HwnyzaRprdaz64/08/1965 [address] [place] [address] * Guarantor: April Alcantarunt TypeRelation to PatientDate of PhoneBilling AddressMotor PvqepuaUljp1995 [address] [place] [address] * Guarantor: SYD NOVAKAccount TypeRelation to Patient Date of BirthPhoneBilling AddressOcc [facility]/CorpEmployer [address] [facility] [place] [address] Advance Directives * Full Code (Latest Code Status on File) Date ActivatedDate ZxflfdknduxCnoomzqs13/17/2022 5:22 PM2022 4:06 PM QuestionAnswerCommentsCode Status Discussion:* Reviewed Preferences * Full Code Date ActivatedDate InactivatedComments04/12/2018 7:46 PM04/14/2018 7:48 PM * Full Code Date ActivatedDate InactivatedComments04/25/2015 11:58 AM04/25/2015 5:07 PM * Full Code Date ActivatedDate InactivatedComments04/19/2015 12:17 AM04/19/2015 6:17 AM * Full Code Date ActivatedDate InactivatedComments04/18/2015 11:41 PM2 12:17 AM Care Teams Team MemberRelationshipSpecialtyStart DateEnd Date Aleida Mueller MD [address] [place], [place] [address] [address] PCP - GeneralFamily Odivkfcv47/30/14
--- OUTSIDE RECORDS SUMMARY | 2025-02-24 22:29 | XMS_ITS | Clinical Summary ---
Author Organization [facility] Address [address] [place] [address]. [place] [address] Care Team Providers Care Nut Tapper Name Role Phone No Ref-Primary, Physician Primary Care Provider Allergies Active AllergyReactionsCriticalityNoted DateCommentsBee VenomOther (See Comments)05/01/2014Wasp Venom ProteinOther (See Comments)Jqyvvx3211/12/2006 Medications MedicationSigDispense QuantityRefillsLast FilledStart DateEnd DateStatus sertraline (ZOLOFT) 50 MG tablet Take 150 mg by mouth dailyActive Family History Medical HistoryRelationCommentsGlaucomaNo family hx ofMacular DegenerationNo family hx of Social History Tobacco UseTypesPacks/DayYears UsedDateSmoking Tobacco: NeverSmokeless Tobacco: Never Tobacco Cessation:Counseling Given: Not Answered PHQ-2AnswerDate RecordedPHQ-2 Uwbli736dolescent EducationAnswerDate RecordedGetting School Help NeededNot on file4CommentsUnknown Sex and Gender InformationValueDate RecordedSex Assigned at BirthNot on file Legal MqmQrpxbn18/04/2024 10:02 AM CSTGender IdentityNot on fileSexual OrientationNot on file Plan of Treatment Health MaintenanceDue DateLast DoneCommentsADVANCE CARE XJXDXQME1993ANNUAL REVIEW OF HM DPJZMY5901/31/1993YEARLY PREVENTIVE VISIT02/01/1996HIV SCREENING 02/01/2008HEPATITIS C XSOSZPVPB89/19/7024DWV39/19/2014PHQ-2 (once per calendar year)502/, 03/26/2023OVID-19 VACCINE ( season) , 04/04/2020INFLUENZA VACCINE (#1)51, 03/13/2014DTAP/TDAP/TD VACCINE (8 - Td or Tdap), 03/30/2015, 01/07/2011, Additional history existsZOSTER VACCINE (1 of 2)2043HEPATITIS B RHRKGXYMsgwkfrdz03/30/1994, 1993, 1993HPV VACCINECompleted 01/07/2011, 10/19/2007, 08/03/2007MENINGITIS VACCINEAged OutNo longer eligible based on patient's age to complete this topicPNEUMOCOCCAL VACCINE: PEDIATRICS (0 to 5 YEARS) AND AT-RISK PATIENTS (6 to 49 YEARS)Aged OutNo longer eligible based on patient's age to complete this topic Insurance Care Teams Team MemberRelationshipSpecialtyStart DateEnd Date No Ref-Primary, Physician PCP - General03/23/23
[2025-02-24 22:34] LABS: Ethanol* < 0.01 % (0.01-0.03)
[2025-02-24] MEDS: ASPIRIN 81 MG TAB.CHEW 324 MG PO (23:34)
--- NOTE | 2025-02-25 00:18 | ED.NURSE ---
Report given to Damari Bradley RN. Pt going to [id number]. EMS called for transport to [facility]
--- NOTE | 2025-02-25 00:43 | ED.NURSE ---
EMS arrived. Report given to crew.
== END 2025-02-25 00:44 | disposition short-term general hospital (02) ==
PROVIDERS: Emergency Provider Family Medicine; PCP Family Medicine
DX: R42 Dizziness and giddiness (principal); G93.2 Benign intracranial hypertension; R94.31 Abnormal electrocardiogram [ECG] [EKG]; Z86.73 Personal history of transient ischemic attack (TIA), and cerebral infarction without residual deficits; Z86.79 Personal history of other diseases of the circulatory system
CPT/HCPCS: 36415; 70450; 70496; 70498; 80048; 82077; 83605; 83735; 84703; 85025; 85610; 85730; 87637; 93005; 94761; 96361; 96365; 96368; 99284; 99285; 99291; A9270; J1200; J2765; J7030; Q9967

== ENCOUNTER 2025-02-25 00:35 | Outpatient (CLI) | payer MEDICAID, SELFPAY | END 2025-02-25 00:36 | disposition home or self-care (01) | LOC: AMB 02-28 01:20 | PROVIDERS: PCP Family Medicine; Visit Provider Emergency Medicine | DX: I63.9 Cerebral infarction, unspecified (principal) | CPT/HCPCS: A0425; A0427 ==